=== PATIENT | male | born 1940 | race Caucasian/White ===

== ENCOUNTER 2018-01-12 12:30 | Emergency (ER) | payer MEDICARE, OTHER ==
[~2018-01-12] VITALS: Ht 170.2 cm; Wt 97.5 kg
[2018-01-12] MEDS ORDERED: diazePAM 5 MG TABLET PO ONE (13:00)
[2018-01-12] MEDS ORDERED: MORPHINE SULFATE 2 MG/ML DISP.SYRIN. IM ONE (13:00)
[2018-01-12] MEDS ORDERED: MORPHINE SULFATE 4 MG/ML DISP.SYRIN. IV ONE (13:15)
--- NOTE | 2018-01-12 13:46 | PHYS DOC ---
Past History Past Medical History: Anemia, Anxiety, Depression, Diabetes, High Cholesterol, Hypertension, Other Past Surgical History: Other Alcohol Use: None Drug Use: None Adult General Chief Complaint Chief Complaint: HIP PAIN HPI HPI Patient is a 77 year old M who presents with right-sided hip pain. Jamshid states that he has chronic hip pain that has worsened significantly this morning. He feels that his pain is worse with movement and improved with rest and positioning. He states that his pain is a cramping like pain and is associated with radiation down the back of his right leg to his heel. He has no other associated symptoms. He has no other exacerbating or alleviating factors. Review of Systems Review of Systems Constitutional: Denies fever or chills [] Eyes: Denies change in visual acuity, redness, or eye pain [] HENT: Denies nasal congestion or sore throat [] Respiratory: Denies cough or shortness of breath [] Cardiovascular: No additional information not addressed in HPI [] GI: Denies abdominal pain, nausea, vomiting, bloody stools or diarrhea [] : Denies dysuria or hematuria [] Musculoskeletal: Negative except history of present illness Integument: Denies rash or skin lesions [] Neurologic: Denies headache, focal weakness or sensory changes [] Endocrine: Denies polyuria or polydipsia [] All other systems were reviewed and found to be within normal limits, except as documented in this note. Family History Family History No pertinent family medical history was reported Current Medications Current Medications Current Medications Medications (Trade) Dose Ordered Sig/Rosendo Start Time Stop Time Status Last Admin Dose Admin Diazepam (Valium) 5 mg 1X ONCE 01/12/18 13:00 01/12/18 13:01 DC 01/12/18 13:10 5 MG Morphine Sulfate (Morphine 2mg Syringe) 2 mg 1X ONCE 01/12/18 13:00 01/12/18 13:01 DC Morphine Sulfate (Morphine 4mg Syringe) 2 mg 1X ONCE 01/12/18 13:15 01/12/18 13:16 DC 01/12/18 13:22 2 MG Allergies Allergies Allergies Coded Allergies Type Severity Reaction Last Updated Verified No Known Drug Allergies 01/12/18 No Physical Exam Physical Exam Constitutional: Well developed, well nourished, no acute distress, non-toxic appearance. [] HENT: Normocephalic, atraumatic, Eyes: EOMI, conjunctiva normal, no discharge. [] Neck: Normal range of motion, no tenderness, supple, no stridor. [] Cardiovascular:Heart rate regular rhythm, no murmur [] Lungs & Thorax: Bilateral breath sounds clear to auscultation [] Abdomen: Bowel sounds normal, soft, no tenderness, no masses, no pulsatile masses. [] Back: No tenderness, no CVA tenderness. [] Extremities: no cyanosis, no clubbing, ROM intact, no edema. [] Pain was reproducible with palpation of the right gluteus and hamstring Neurologic: Alert and oriented X 3, normal motor function, normal sensory function, no focal deficits noted. [] Psychologic: Affect normal, judgement normal, mood normal. [] Current Patient Data Vital Signs Vital Signs Date Time Temp Pulse Resp B/P (MAP) Pulse Ox O2 Delivery O2 Flow Rate FiO2 01/12/18 13:22 20 97 Room Air 01/12/18 13:15 74 137/90 (106) 01/12/18 12:30 97.9 EKG EKG [] Radiology/Procedures Radiology/Procedures [] Course & Med Decision Making Course & Med Decision Making Pertinent Labs and Imaging studies reviewed. (See chart for details) Significant improvement was noted after Valium and morphine were given Dragon Disclaimer Dragon Disclaimer This electronic medical record was generated, in whole or in part, using a voice recognition dictation system. Departure Departure: Impression: Primary Impression: Muscle spasm of right leg Disposition: HOME, SELF-CARE Condition: STABLE Referrals: RONALD JOSÉ MD (PCP) Patient Instructions: Back Pain, Adult Additional Instructions: Jamshid was seen in the emergency department for hip pain. No emergency medical condition was found on history or physical exam. His symptoms did improve. He was discharged in stable condition. He is encouraged follow-up with his primary care doctor as needed for further management. NADEEN CADET MD Jan 12, 2018 13:46
[2018-01-12 13:58] VITALS: BP 122/76
== END 2018-01-12 14:05 | disposition home or self-care (01) ==
LOC: ER 12:30
DX: G89.29 Other chronic pain (principal); M62.831 Muscle spasm of calf; F41.9 Anxiety disorder, unspecified; F32.9 Major depressive disorder, single episode, unspecified; E11.9 Type 2 diabetes mellitus without complications; E78.00 Pure hypercholesterolemia, unspecified; I10 Essential (primary) hypertension; Z86.2 Personal history of diseases of the blood and blood-forming organs and certain disorders involving the immune mechanism
CPT/HCPCS: 96374; 99284; J2270

== ENCOUNTER 2018-02-11 13:42 | Inpatient (IN) | payer MEDICARE, OTHER ==
[~2018-02-11] VITALS: Ht 180.3 cm; Wt 97.3 kg
[2018-02-11 14:32] LABS: BASO % 1 % (0-3); EOS # 0.2 x10^3/uL (0.0-0.7); EOS % 5 % (0-3); LYMPH # 1.5 x10^3/uL (1.0-4.8); LYMPH % 34 % (24-48); MEAN CORPUSCULAR HEMOGLOBIN 29 pg (25-35); MEAN CORPUSCULAR HGB CONC 33 g/dL (31-37); MEAN CORPUSCULAR VOLUME 88 fL (79-100); MONO # 0.5 x10^3/uL (0.0-1.1); MONO % 12 % (0-9); NEUT # 2.2 x10^3uL (1.8-7.7); NEUT % 48 % (31-73); PLATELET COUNT 182 x10^3/uL (140-400); RED BLOOD COUNT 4.43 x10^6/uL (4.30-5.70); RED CELL DISTRIBUTION WIDTH 12.6 % (11.5-14.5); WHITE BLOOD COUNT 4.5 x10^3/uL (4.0-11.0)
[2018-02-11 14:41] LABS: ALBUMIN 3.9 g/dL (3.4-5.0); ALBUMIN/GLOBULIN RATIO 1.1 (1.0-1.7); CALCIUM 9.2 mg/dL (8.5-10.1); CREATININE 1.1 mg/dL (0.7-1.3); GFR 64.9; MAGNESIUM 1.8 mg/dL (1.8-2.4); TOTAL BILIRUBIN 0.2 mg/dL (0.2-1.0); TOTAL PROTEIN 7.3 g/dL (6.4-8.2)
--- NOTE | 2018-02-11 14:42 | EKG ---
[address] [address] Test Date: 2018-02-11 Test Time: 13:39:32 Pat Name: ELO SCHROEDER Department: Room: Gender: M [employer] Operator: : 1940 Requested By: ANT VINES Order Number: [id number] Reading MD: Measurements Intervals [place] Rate: 79 P: 39 DE: 184 QRS: -39 QRSD: 86 T: 65 QT: 352 QTc: 405 Interpretive Statements SINUS RHYTHM ABNORMAL LEFT AXIS DEVIATION LEFT ANTERIOR FASCICULAR BLOCK ABNORMAL ECG RI6.01 No previous ECG available for comparison
--- NOTE | 2018-02-11 15:52 | PHYS DOC ---
Past History Past Medical History: Anemia, Anxiety, Depression, Diabetes, High Cholesterol, Hypertension, Other Past Surgical History: Other Alcohol Use: None Drug Use: None Adult General Chief Complaint Chief Complaint: PSYCH EVALUATION HPI HPI 77-year-old male presents for medical clearance for [facility] admission. Patient denies any pain or medical concerns. He denies fever, chills , shortness of breath, chest pain. He is calm and cooperative. Review of Systems Review of Systems Constitutional: Denies fever or chills [] Eyes: Denies change in visual acuity, redness, or eye pain [] HENT: Denies nasal congestion or sore throat [] Respiratory: Denies cough or shortness of breath [] Cardiovascular: No additional information not addressed in HPI [] GI: Denies abdominal pain, nausea, vomiting, bloody stools or diarrhea [] : Denies dysuria or hematuria [] Musculoskeletal: Denies back pain or joint pain [] Integument: Denies rash or skin lesions [] Neurologic: Denies headache, focal weakness or sensory changes [] Endocrine: Denies polyuria or polydipsia [] All other systems were reviewed and found to be within normal limits, except as documented in this note. Allergies Allergies Allergies Coded Allergies Type Severity Reaction Last Updated Verified No Known Drug Allergies 01/12/18 No Physical Exam Physical Exam Constitutional: Well developed, well nourished, no acute distress, non-toxic appearance. [] HENT: Normocephalic, atraumatic, bilateral external ears normal, oropharynx moist, no oral exudates, nose normal. [] Eyes: PERRLA, EOMI, conjunctiva normal, no discharge. [] Neck: Normal range of motion, no tenderness, supple, no stridor. [] Cardiovascular:Heart rate regular rhythm, no murmur [] Lungs & Thorax: Bilateral breath sounds clear to auscultation [] Abdomen: Bowel sounds normal, soft, no tenderness, no masses, no pulsatile masses. [] Skin: Warm, dry, no erythema, no rash. [] Back: No tenderness, no CVA tenderness. [] Extremities: No tenderness, no cyanosis, no clubbing, ROM intact, no edema. [] Neurologic: Alert and oriented X 3, normal motor function, normal sensory function, no focal deficits noted. [] Psychologic: Affect normal, judgement normal, mood normal. [] Current Patient Data Lab Results Laboratory Tests Test 02/11/18 13:55 White Blood Count 4.5 x10^3/uL (4.0-11.0) Red Blood Count 4.43 x10^6/uL (4.30-5.70) Hemoglobin 13.0 g/dL (13.0-17.5) Hematocrit 39.0 % (39.0-53.0) Mean Corpuscular Volume 88 fL (79-100) Mean Corpuscular Hemoglobin 29 pg (25-35) Mean Corpuscular Hemoglobin Concent 33 g/dL (31-37) Red Cell Distribution Width 12.6 % (11.5-14.5) Platelet Count 182 x10^3/uL (140-400) Neutrophils (%) (Auto) 48 % (31-73) Lymphocytes (%) (Auto) 34 % (24-48) Monocytes (%) (Auto) 12 % (0-9) H Eosinophils (%) (Auto) 5 % (0-3) H Basophils (%) (Auto) 1 % (0-3) Neutrophils # (Auto) 2.2 x10^3uL (1.8-7.7) Lymphocytes # (Auto) 1.5 x10^3/uL (1.0-4.8) Monocytes # (Auto) 0.5 x10^3/uL (0.0-1.1) Eosinophils # (Auto) 0.2 x10^3/uL (0.0-0.7) Basophils # (Auto) 0.0 x10^3/uL (0.0-0.2) Sodium Level 139 mmol/L (136-145) Potassium Level 4.0 mmol/L (3.5-5.1) Chloride Level 102 mmol/L (98-107) Carbon Dioxide Level 26 mmol/L (21-32) Anion Gap 11 (6-14) Blood Urea Nitrogen 8 mg/dL (8-26) Creatinine 1.1 mg/dL (0.7-1.3) Estimated GFR (Cockcroft-Gault) 64.9 BUN/Creatinine Ratio 7 (6-20) Glucose Level 187 mg/dL (70-99) H Calcium Level 9.2 mg/dL (8.5-10.1) Magnesium Level 1.8 mg/dL (1.8-2.4) Total Bilirubin 0.2 mg/dL (0.2-1.0) Aspartate Amino Transferase (AST) 12 U/L (15-37) L Alanine Aminotransferase (ALT) 21 U/L (16-63) Alkaline Phosphatase 54 U/L (46-116) Total Protein 7.3 g/dL (6.4-8.2) Albumin 3.9 g/dL (3.4-5.0) Albumin/Globulin Ratio 1.1 (1.0-1.7) EKG EKG Normal sinus rhythm, rate 79, leftward axis, no ST elevation or depression. Somewhat flattened T waves[] Radiology/Procedures Radiology/Procedures [] Course & Med Decision Making Course & Med Decision Making Pertinent Labs and Imaging studies reviewed. (See chart for details) The patient's workup was unremarkable. He is medically stable for admission. [] Dragon Disclaimer Dragon Disclaimer This electronic medical record was generated, in whole or in part, using a voice recognition dictation system. Departure Departure: Referrals: RONALD JOSÉ MD (PCP) ANT VINES DO February 11, 2018 15:52
[2018-02-11 15:53] LABS: BILIRUBIN,URINE NEG (NEG); CLARITY,URINE CLEAR; COLOR,URINE YELLOW; GLUCOSE,URINE 250 mg/dL (NEG); NITRITE,URINE NEG (NEG); UROBILINOGEN,URINE 0.2 mg/dL (0.2 mg/dL)
[2018-02-11 15:54] LABS: BACTERIA,URINE 0 /HPF (0-FEW); HYALINE CASTS, URINE FEW /HPF; SQUAMOUS EPITHELIAL CELL,UR OCC /LPF
[2018-02-11 17:00] VITALS: BP 138/69
[2018-02-11] MEDS ORDERED: PECT2.8L3 MM (17:10)
[2018-02-11] MEDS ORDERED: POLY119P4 PO (17:10)
[2018-02-11] MEDS ORDERED: ONDA4TAB10 PO (17:10)
[2018-02-11] MEDS ORDERED: DEXT38GE2 PO (17:10)
[2018-02-11] MEDS ORDERED: DONE10TA61 PO (17:10)
[2018-02-11] MEDS ORDERED: DOCU-109 PO (17:10)
[2018-02-11] MEDS ORDERED: NALO25TA PO (17:10)
[2018-02-11] MEDS ORDERED: ASPI-630 PO (17:10)
[2018-02-11] MEDS ORDERED: INSU100C4 SQ ×2 (17:10)
[2018-02-11] MEDS ORDERED: DICL100G18 TP (17:10)
[2018-02-11] MEDS ORDERED: GLUC1KIT IM (17:10)
[2018-02-11] MEDS ORDERED: HYDR-2758 PO (17:10)
[2018-02-11] MEDS ORDERED: FERR325T72 PO (17:10)
[2018-02-11] MEDS ORDERED: PROP225C2 PO (17:10)
[2018-02-11] MEDS ORDERED: MAGN2400 PO (17:10)
[2018-02-11] MEDS ORDERED: QUET25TA5 PO (17:10)
[2018-02-11] MEDS ORDERED: BUSP5TAB PO (17:10)
[2018-02-11] MEDS ORDERED: INSU100I13 SQ (17:10)
[2018-02-11] MEDS ORDERED: TRAZ50TA15 PO (17:10)
[2018-02-11] MEDS ORDERED: LOPE2CAP88 PO (17:10)
[2018-02-11] MEDS ORDERED: MULT-460 PO (17:10)
[2018-02-11] MEDS ORDERED: GLYC15DR2 OP (17:10)
[2018-02-11] MEDS ORDERED: LORA0.5T96 PO (17:10)
[2018-02-11] MEDS ORDERED: FLUT9.9S NS (17:10)
[2018-02-11] MEDS ORDERED: LORA0.5T PO (17:10)
[2018-02-11] MEDS ORDERED: DULO30CA2 PO (17:10)
[2018-02-11] MEDS ORDERED: PRAV10TA2 PO (17:10)
[2018-02-11] MEDS ORDERED: LORA10TA3 PO (17:10)
[2018-02-11] MEDS ORDERED: NORT25CA PO (17:10)
[2018-02-11] MEDS ORDERED: POTA10TA10 PO (17:10)
[2018-02-11] MEDS ORDERED: METF10003 PO (17:10)
[2018-02-11] MEDS ORDERED: CYAN10005 PO (17:10)
[2018-02-11] MEDS ORDERED: [UNRECOGNIZED DRUG - CODE] OP (17:10)
[2018-02-11] MEDS ORDERED: ACETASOL AU (17:10)
[2018-02-11] MEDS ORDERED: PREG50CA PO (17:10)
[2018-02-11] MEDS ORDERED: SENN-79 PO (17:10)
[2018-02-11] MEDS ORDERED: MAG HYDROX/AL HYDROX/SIMETH 30 ML ORAL.SUSP PO PRN (17:30)
[2018-02-11] MEDS ORDERED: MAGNESIUM HYDROXIDE 2,400 MG/30 ML ORAL.SUSP. PO PRN ×2 (17:30→18:00)
[2018-02-11] MEDS ORDERED: ACETAMINOPHEN 325 MG TABLET PO PRN (17:30)
[2018-02-11] MEDS ORDERED: METHYL SALICYLATE/MENTHOL TOPICAL OINTMENT 29GM TUBE. TP PRN (17:30)
[2018-02-11] MEDS ORDERED: NON FORMULARY ITEM (Glucagon,Human Recombinant (Glucagon Emergency Kit) 1 MG) IM SCH (17:45)
[2018-02-11] MEDS ORDERED: [UNRECOGNIZED DRUG - OTHER] MM PRN (17:45)
[2018-02-11] MEDS ORDERED: LOPERAMIDE 2 MG CAPSULE PO PRN (18:00)
[2018-02-11] MEDS ORDERED: DEXTROSE 50% 25 GM / 50ML DISP.SYRIN. IV PRN (18:00)
[2018-02-11] MEDS ORDERED: LORazepam 0.5 MG TABLET PO PRN (18:00)
[2018-02-11] MEDS ORDERED: DEXTROSE ORAL GEL 15 GM TUBE. PO PRN (18:00)
[2018-02-11] MEDS: INSULIN LISPRO 300 UNITS/3 ML INSULN.PEN. SQ SCH ×2 (18:00→21:42)
[2018-02-11] MEDS ORDERED: POLYVINYL ALCOHOL 1.4% OPHTH SOLUTION 15ML BOTTLE. OU PRN (18:15)
--- NOTE | 2018-02-11 20:01 | PDOC ---
Exam Note: Maxx Note: Please also refer to the separate dictated note~for this date of service dictated separately.~Patient seen individually. Discussed the patient with Nursing staff reviewed the chart.~Reviewed interim history and current functioning. Reviewed vital signs,~Labs/ Radiology~and current medications noted below. Continue current treatment with the changes noted in the dictated addendum note Assessment: Vital Signs: Vital Signs Date Time Temp Pulse Resp B/P (MAP) Pulse Ox O2 Delivery O2 Flow Rate FiO2 02/11/18 17:00 98.0 69 20 138/69 (92) 97 Room Air Labs: Laboratory Tests Test 02/11/18 13:55 02/11/18 15:10 02/11/18 17:12 White Blood Count 4.5 x10^3/uL (4.0-11.0) Red Blood Count 4.43 x10^6/uL (4.30-5.70) Hemoglobin 13.0 g/dL (13.0-17.5) Hematocrit 39.0 % (39.0-53.0) Mean Corpuscular Volume 88 fL (79-100) Mean Corpuscular Hemoglobin 29 pg (25-35) Mean Corpuscular Hemoglobin Concent 33 g/dL (31-37) Red Cell Distribution Width 12.6 % (11.5-14.5) Platelet Count 182 x10^3/uL (140-400) Neutrophils (%) (Auto) 48 % (31-73) Lymphocytes (%) (Auto) 34 % (24-48) Monocytes (%) (Auto) 12 % (0-9) H Eosinophils (%) (Auto) 5 % (0-3) H Basophils (%) (Auto) 1 % (0-3) Neutrophils # (Auto) 2.2 x10^3uL (1.8-7.7) Lymphocytes # (Auto) 1.5 x10^3/uL (1.0-4.8) Monocytes # (Auto) 0.5 x10^3/uL (0.0-1.1) Eosinophils # (Auto) 0.2 x10^3/uL (0.0-0.7) Basophils # (Auto) 0.0 x10^3/uL (0.0-0.2) Sodium Level 139 mmol/L (136-145) Potassium Level 4.0 mmol/L (3.5-5.1) Chloride Level 102 mmol/L (98-107) Carbon Dioxide Level 26 mmol/L (21-32) Anion Gap 11 (6-14) Blood Urea Nitrogen 8 mg/dL (8-26) Creatinine 1.1 mg/dL (0.7-1.3) Estimated GFR (Cockcroft-Gault) 64.9 BUN/Creatinine Ratio 7 (6-20) Glucose Level 187 mg/dL (70-99) H Calcium Level 9.2 mg/dL (8.5-10.1) Magnesium Level 1.8 mg/dL (1.8-2.4) Total Bilirubin 0.2 mg/dL (0.2-1.0) Aspartate Amino Transferase (AST) 12 U/L (15-37) L Alanine Aminotransferase (ALT) 21 U/L (16-63) Alkaline Phosphatase 54 U/L (46-116) Total Protein 7.3 g/dL (6.4-8.2) Albumin 3.9 g/dL (3.4-5.0) Albumin/Globulin Ratio 1.1 (1.0-1.7) Urine Collection Type Unknown Urine Color Yellow Urine Clarity Clear Urine pH 5.5 Urine Specific [place] 1.020 Urine Protein Neg (NEG-TRACE) Urine Glucose (UA) 250 mg/dL (NEG) Urine Ketones (Stick) Trace mg/dL (NEG) Urine Blood Small (NEG) Urine Nitrite Neg (NEG) Urine Bilirubin Neg (NEG) Urine Urobilinogen Dipstick 0.2 mg/dL (0.2 mg/dL) Urine Leukocyte Esterase Neg (NEG) Urine RBC 1-2 /HPF (0-2) Urine WBC 1-4 /HPF (0-4) Urine Squamous Epithelial Cells Occ /LPF Urine Bacteria 0 /HPF (0-FEW) Urine Hyaline Casts Few /HPF Urine Mucus Mod /LPF Glucose (Fingerstick) 139 mg/dL (70-99) H Current Medications: Meds: Current Medications Acetaminophen (Tylenol) 650 mg PRN Q6HRS PRN PO PAIN / TEMP; Start 02/11/18 at 17:30 Multi-Ingredient Ointment (Analgesic [place]) 1 jonathan PRN QID PRN TP MUSCLE PAIN; Start 02/11/18 at 17:30 Al Hydroxide/Mg Hydroxide (Mylanta Plus Xs) 15 ml PRN AFTMEALHC PRN PO DYSPEPSIA; Start 02/11/18 at 17:30 Magnesium Hydroxide (Milk Of Magnesia) 2,400 mg PRN QHS PRN PO CONSTIPATION; Start 02/11/18 at 17:30 Cyanocobalamin (Vitamin B-12) 1,000 mcg DAILY PO ; Start 02/12/18 at 09:00 Diclofenac Sodium (Voltaren) 1 jonathan QIDPRN PRN TP PAIN; Start 02/11/18 at 17:45 Ferrous Sulfate (Feosol) 325 mg TIDWMEALS PO ; Start 02/12/18 at 08:00 Insulin Glargine (Lantus) 15 units QHS SQ ; Start 02/11/18 at 21:00 Naloxegol (Movantik) 25 mg DAILY PO ; Start 02/12/18 at 09:00 Nortriptyline HCl (Pamelor) 50 mg HS PO ; Start 02/11/18 at 21:00 Polyethylene Glycol (miraLAX) 17 gm HS PO ; Start 02/11/18 at 21:00 Pregabalin (Lyrica) 50 mg BID PO ; Start 02/11/18 at 21:00 Aspirin (Aspirin Enteric Coated) 81 mg DAILYWBKFT PO ; Start 02/12/18 at 08:00 Buspirone HCl (Buspar) 5 mg BID PO ; Start 02/11/18 at 21:00 Artificial Tears (Artificial Tears) 1 drop QID OU ; Start 02/11/18 at 21:00 Glucose (Insta-Glucose) 15 gm PRN Q15MIN PRN PO LOW BLOOD SUGAR; Start at 18:00 Docusate Sodium (Colace) 100 mg BID PO ; Start 02/11/18 at 21:00 Donepezil HCl (Aricept) 10 mg QHS PO ; Start 02/11/18 at 21:00 Duloxetine HCl (Cymbalta) 90 mg DAILY PO ; Start 02/12/18 at 09:00 Fluticasone Propionate (Flonase) 2 spray DAILY NS ; Start 02/12/18 at 09:00 Non-Formulary Medication (Glucagon,Human Recombinant (Glucagon Emergency Kit)) 1 mg PRN IM ; Start 02/11/18 at 17:45; Status UNV Artificial Tears (Artificial Tears) 1 drop PRN Q6HRS PRN OU DRY EYE; Start at 18:15 Acetaminophen/ Hydrocodone Bitart (Lortab 5/325) 1 tab PRN Q6HRS PRN PO PAIN; Start 02/11/18 at 18:00 Insulin Human Lispro (HumaLOG) 5 units TIDWMEALS SQ ; Start 02/11/18 at 18:00 Loperamide HCl (Imodium) 2 mg PRN Q15MIN PRN PO DIARRHEA; Start 02/11/18 at 18: 00 Cetirizine HCl (ZyrTEC) 10 mg DAILY PO ; Start 02/12/18 at 09:00 Lorazepam (Ativan) 0.5 mg PRN Q6HRS PRN PO ANXIETY / AGITATION; Start 02/11/18 at 18:00 Lorazepam (Ativan) 0.5 mg QHS PO ; Start 02/11/18 at 21:00 Magnesium Hydroxide (Milk Of Magnesia) 2,400 mg PRN QHS PRN PO CONSTIPATION; Start 02/11/18 at 18:00 Metformin HCl (Glucophage) 1,000 mg BIDWMEALS PO ; Start 02/12/18 at 08:00 Multivitamins/ Calcium (Thera-M Plus) 1 tab DAILY PO ; Start 02/12/18 at 09:00 Non-Formulary Medication (Pectin (Throat Drops)) 1 lozenge PRN Q4HRS PRN MM sore throat; Start 02/11/18 at 17:45; Status UNV Potassium Chloride (Klor-Con) 10 meq DAILYWBKFT PO ; Start 02/12/18 at 08:00 Atorvastatin Calcium (Lipitor) 5 mg QHS PO ; Start 02/11/18 at 21:00 Propafenone HCl (Rythmol) 75 mg BID PO ; Start 02/11/18 at 21:00 Quetiapine Fumarate (SEROquel) 75 mg BID PO ; Start 02/11/18 at 21:00 Sennosides (Senna) 17.2 mg DAILY PO ; Start 02/12/18 at 09:00 Trazodone HCl (Desyrel) 50 mg QHS PO ; Start 02/11/18 at 21:00 Insulin Human Lispro (HumaLOG) 0-9 UNITS TIDWMEALS SQ ; Start 02/12/18 at 08:00 Dextrose 12.5 gm PRN Q15MIN PRN IV SEE COMMENTS; Start 02/11/18 at 18:00 Active Scripts Active Reported Zofran Odt (Ondansetron) 4 Mg Tab.rapdis 4 Mg PO PRN Q4HRS PRN 30 Days Voltaren (Diclofenac Sodium) 100 Gm Gel..gram. 1 Gm TP QIDPRN PRN Vitamin B-12 (Cyanocobalamin (Vitamin B-12)) 1,000 Mcg Tablet 1,000 Mcg PO DAILY Trazodone Hcl 50 Mg Tablet 50 Mg PO HS Throat Drops (Pectin) 2.8 Mg Lozenge 1 Lozenge MM PRN Q4HRS PRN Seroquel (Quetiapine Fumarate) 25 Mg Tablet 75 Mg PO BID Senna (Sennosides) 8.6 Mg Tablet 17.2 Mg PO DAILY Rythmol Sr (Propafenone Hcl) 225 Mg Cap.er.12h 75 Mg PO BID Pravastatin Sodium 10 Mg Tablet 10 Mg PO HS Potassium Chloride 10 Meq Tablet.er 10 Meq PO DAILY Novolog (Insulin Aspart) 100 Unit/1 Ml Cartridge 5 Unit SQ TIDWMEALS Novolog (Insulin Aspart) 100 Unit/1 Ml Cartridge 1-20 Unit SQ QIDACHS Nortriptyline Hcl 25 Mg Capsule 50 Mg PO HS Natural Balance Tears Eye Drop (Dextran 70/Hypromellose) 15 Ml Drops 1 Ml OP [id number] Multiple Vitamin (Multivitamin With Minerals) 1 Each Tablet 1 Each PO DAILY Movantik (Naloxegol Oxalate) 25 Mg Tablet 25 Mg PO DAILY Miralax (Polyethylene Glycol 3350) 119 Gm Powder 17 Gm PO HS Milk Of Magnesia (Magnesium Hydroxide) 2,400 Mg/10 Ml Oral.susp 2,400 Mg PO PRN QHS PRN Metformin Hcl 1,000 Mg Tablet 1,000 Mg PO BID Lyrica (Pregabalin) 50 Mg Capsule 50 Mg PO BID Lubricant Eye Drops (Glycerin/Propylene Glycol) 15 Ml Drops 1 Ml OP PRN Q6HRS PRN Lorazepam 0.5 Mg Tablet 0.5 Mg PO PRN Q6HRS PRN Loratadine 10 Mg Tablet 10 Mg PO DAILY Lantus Solostar (Insulin Glargine,Hum.rec.anlog) 100 Unit/1 Ml Insuln.pen 15 Unit SQ QHS Imodium A-D (Loperamide HCl) 2 Mg Capsule 2 Mg PO PRN Q15MIN PRN Hydrocodone-Apap 5-325 (Hydrocodone Bit/Acetaminophen) 1 Each Tablet 1 Tab PO QID PRN Glucose Gel (Dextrose) 38 Gm Gel..gram. 1 Packet PO PRN PRN Glucagon Emergency Kit (Glucagon,Human Recombinant) 1 Mg Kit 1 Mg IM PRN Flonase Allergy Relief (Fluticasone Propionate) 9.9 Ml [place].susp 2 Sprays NS DAILY Feosol (Ferrous Sulfate) 325 Mg Tablet 325 Mg PO PRN TID PRN Cymbalta (Duloxetine Hcl) 30 Mg Capsule.dr 90 Mg PO DAILY Colace (Docusate Sodium) 100 Mg Capsule 100 Mg PO BID Buspirone Hcl 5 Mg Tablet 5 Mg PO BID Ativan (Lorazepam) 0.5 Mg Tablet 0.5 Mg PO HS Aspirin 81 Mg Tab.chew 81 Mg PO DAILY Aricept (Donepezil Hcl) 10 Mg Tablet 10 Mg PO HS [acetasol 2-1%] 3 Drop AU I have reviewed the current psychotropics carefully including drug interactions. Risk benefit ratio favors no change other than as noted in my dictated progress note. Diagnosis: Problems: (1) Anxiety disorder (2) Mild cognitive impairment (3) Impulse control disorder (4) Major depressive disorder ANDRES WILLIAMSON MD February 11, 2018 20:01
[2018-02-11] MEDS ORDERED: MEMA10TA PO (20:06)
--- NOTE | 2018-02-11 20:47 | PDOC ---
Exam Note: Maxx Note: Please also refer to the separate dictated note~for this date of service dictated separately.~Patient seen individually. Discussed the patient with Nursing staff reviewed the chart.~Reviewed interim history and current functioning. Reviewed vital signs,~Labs/ Radiology~and current medications noted below. Continue current treatment with the changes noted in the dictated addendum note Assessment: Vital Signs: Vital Signs Date Time Temp Pulse Resp B/P (MAP) Pulse Ox O2 Delivery O2 Flow Rate FiO2 02/11/18 17:00 98.0 69 20 138/69 (92) 97 Room Air Labs: Laboratory Tests Test 02/11/18 13:55 02/11/18 15:10 02/11/18 17:12 02/11/18 20:26 White Blood Count 4.5 x10^3/uL (4.0-11.0) Red Blood Count 4.43 x10^6/uL (4.30-5.70) Hemoglobin 13.0 g/dL (13.0-17.5) Hematocrit 39.0 % (39.0-53.0) Mean Corpuscular Volume 88 fL (79-100) Mean Corpuscular Hemoglobin 29 pg (25-35) Mean Corpuscular Hemoglobin Concent 33 g/dL (31-37) Red Cell Distribution Width 12.6 % (11.5-14.5) Platelet Count 182 x10^3/uL (140-400) Neutrophils (%) (Auto) 48 % (31-73) Lymphocytes (%) (Auto) 34 % (24-48) Monocytes (%) (Auto) 12 % (0-9) H Eosinophils (%) (Auto) 5 % (0-3) H Basophils (%) (Auto) 1 % (0-3) Neutrophils # (Auto) 2.2 x10^3uL (1.8-7.7) Lymphocytes # (Auto) 1.5 x10^3/uL (1.0-4.8) Monocytes # (Auto) 0.5 x10^3/uL (0.0-1.1) Eosinophils # (Auto) 0.2 x10^3/uL (0.0-0.7) Basophils # (Auto) 0.0 x10^3/uL (0.0-0.2) Sodium Level 139 mmol/L (136-145) Potassium Level 4.0 mmol/L (3.5-5.1) Chloride Level 102 mmol/L (98-107) Carbon Dioxide Level 26 mmol/L (21-32) Anion Gap 11 (6-14) Blood Urea Nitrogen 8 mg/dL (8-26) Creatinine 1.1 mg/dL (0.7-1.3) Estimated GFR (Cockcroft-Gault) 64.9 BUN/Creatinine Ratio 7 (6-20) Glucose Level 187 mg/dL (70-99) H Calcium Level 9.2 mg/dL (8.5-10.1) Magnesium Level 1.8 mg/dL (1.8-2.4) Total Bilirubin 0.2 mg/dL (0.2-1.0) Aspartate Amino Transferase (AST) 12 U/L (15-37) L Alanine Aminotransferase (ALT) 21 U/L (16-63) Alkaline Phosphatase 54 U/L (46-116) Total Protein 7.3 g/dL (6.4-8.2) Albumin 3.9 g/dL (3.4-5.0) Albumin/Globulin Ratio 1.1 (1.0-1.7) Urine Collection Type Unknown Urine Color Yellow Urine Clarity Clear Urine pH 5.5 Urine Specific [place] 1.020 Urine Protein Neg (NEG-TRACE) Urine Glucose (UA) 250 mg/dL (NEG) Urine Ketones (Stick) Trace mg/dL (NEG) Urine Blood Small (NEG) Urine Nitrite Neg (NEG) Urine Bilirubin Neg (NEG) Urine Urobilinogen Dipstick 0.2 mg/dL (0.2 mg/dL) Urine Leukocyte Esterase Neg (NEG) Urine RBC 1-2 /HPF (0-2) Urine WBC 1-4 /HPF (0-4) Urine Squamous Epithelial Cells Occ /LPF Urine Bacteria 0 /HPF (0-FEW) Urine Hyaline Casts Few /HPF Urine Mucus Mod /LPF Glucose (Fingerstick) 139 mg/dL (70-99) H 267 mg/dL (70-99) H Current Medications: Meds: Current Medications Acetaminophen (Tylenol) 650 mg PRN Q6HRS PRN PO PAIN / TEMP; Start 02/11/18 at 17:30 Multi-Ingredient Ointment (Analgesic [place]) 1 jonathan PRN QID PRN TP MUSCLE PAIN; Start 02/11/18 at 17:30 Al Hydroxide/Mg Hydroxide (Mylanta Plus Xs) 15 ml PRN AFTMEALHC PRN PO DYSPEPSIA; Start 02/11/18 at 17:30 Magnesium Hydroxide (Milk Of Magnesia) 2,400 mg PRN QHS PRN PO CONSTIPATION; Start 02/11/18 at 17:30 Cyanocobalamin (Vitamin B-12) 1,000 mcg DAILY PO ; Start 02/12/18 at 09:00 Diclofenac Sodium (Voltaren) 1 jonathan QIDPRN PRN TP PAIN; Start 02/11/18 at 17:45 Ferrous Sulfate (Feosol) 325 mg TIDWMEALS PO ; Start 02/12/18 at 08:00 Insulin Glargine (Lantus) 15 units QHS SQ ; Start 02/11/18 at 21:00 Naloxegol (Movantik) 25 mg DAILY PO ; Start 02/12/18 at 09:00 Nortriptyline HCl (Pamelor) 50 mg HS PO ; Start 02/11/18 at 21:00 Polyethylene Glycol (miraLAX) 17 gm HS PO ; Start 02/11/18 at 21:00 Pregabalin (Lyrica) 50 mg BID PO ; Start 02/11/18 at 21:00 Aspirin (Aspirin Enteric Coated) 81 mg DAILYWBKFT PO ; Start 02/12/18 at 08:00 Buspirone HCl (Buspar) 5 mg BID PO ; Start 02/11/18 at 21:00 Artificial Tears (Artificial Tears) 1 drop QID OU ; Start 02/11/18 at 21:00 Glucose (Insta-Glucose) 15 gm PRN Q15MIN PRN PO LOW BLOOD SUGAR; Start at 18:00 Docusate Sodium (Colace) 100 mg BID PO ; Start 02/11/18 at 21:00 Donepezil HCl (Aricept) 10 mg QHS PO ; Start 02/11/18 at 21:00 Duloxetine HCl (Cymbalta) 90 mg DAILY PO ; Start 02/12/18 at 09:00 Fluticasone Propionate (Flonase) 2 spray DAILY NS ; Start 02/12/18 at 09:00 Non-Formulary Medication (Glucagon,Human Recombinant (Glucagon Emergency Kit)) 1 mg PRN IM ; Start 02/11/18 at 17:45; Status UNV Artificial Tears (Artificial Tears) 1 drop PRN Q6HRS PRN OU DRY EYE; Start at 18:15 Acetaminophen/ Hydrocodone Bitart (Lortab 5/325) 1 tab PRN Q6HRS PRN PO PAIN; Start 02/11/18 at 18:00 Insulin Human Lispro (HumaLOG) 5 units TIDWMEALS SQ ; Start 02/11/18 at 18:00 Loperamide HCl (Imodium) 2 mg PRN Q15MIN PRN PO DIARRHEA; Start 02/11/18 at 18: 00 Cetirizine HCl (ZyrTEC) 10 mg DAILY PO ; Start 02/12/18 at 09:00 Lorazepam (Ativan) 0.5 mg PRN Q6HRS PRN PO ANXIETY / AGITATION; Start 02/11/18 at 18:00 Lorazepam (Ativan) 0.5 mg QHS PO ; Start 02/11/18 at 21:00 Magnesium Hydroxide (Milk Of Magnesia) 2,400 mg PRN QHS PRN PO CONSTIPATION; Start 02/11/18 at 18:00 Metformin HCl (Glucophage) 1,000 mg BIDWMEALS PO ; Start 02/12/18 at 08:00 Multivitamins/ Calcium (Thera-M Plus) 1 tab DAILY PO ; Start 02/12/18 at 09:00 Non-Formulary Medication (Pectin (Throat Drops)) 1 lozenge PRN Q4HRS PRN MM sore throat; Start 02/11/18 at 17:45; Status UNV Potassium Chloride (Klor-Con) 10 meq DAILYWBKFT PO ; Start 02/12/18 at 08:00 Atorvastatin Calcium (Lipitor) 5 mg QHS PO ; Start 02/11/18 at 21:00 Propafenone HCl (Rythmol) 75 mg BID PO ; Start 02/11/18 at 21:00 Quetiapine Fumarate (SEROquel) 75 mg BID PO ; Start 02/11/18 at 21:00 Sennosides (Senna) 17.2 mg DAILY PO ; Start 02/12/18 at 09:00 Trazodone HCl (Desyrel) 50 mg QHS PO ; Start 02/11/18 at 21:00 Insulin Human Lispro (HumaLOG) 0-9 UNITS QIDACHS SQ ; Start 02/12/18 at 07:30 Dextrose 12.5 gm PRN Q15MIN PRN IV SEE COMMENTS; Start 02/11/18 at 18:00 Non-Formulary Medication (Insulin Aspart (Novolog)) 200-249=5u, 250-299=7u, 300- 349=10u,... QIDACHS SQ ; Start 02/11/18 at 21:00; Status UNV Memantine (Namenda) 10 mg DAILY PO ; Start 02/12/18 at 09:00 Active Scripts Active Reported Namenda (Memantine Hcl) 10 Mg Tablet 10 Mg PO DAILY Zofran Odt (Ondansetron) 4 Mg Tab.rapdis 4 Mg PO PRN Q4HRS PRN 30 Days Voltaren (Diclofenac Sodium) 100 Gm Gel..gram. 1 Gm TP QIDPRN PRN Vitamin B-12 (Cyanocobalamin (Vitamin B-12)) 1,000 Mcg Tablet 1,000 Mcg PO DAILY Trazodone Hcl 50 Mg Tablet 50 Mg PO HS Throat Drops (Pectin) 2.8 Mg Lozenge 1 Lozenge MM PRN Q4HRS PRN Seroquel (Quetiapine Fumarate) 25 Mg Tablet 75 Mg PO BID Senna (Sennosides) 8.6 Mg Tablet 17.2 Mg PO DAILY Rythmol Sr (Propafenone Hcl) 225 Mg Cap.er.12h 75 Mg PO BID Pravastatin Sodium 10 Mg Tablet 10 Mg PO HS Potassium Chloride 10 Meq Tablet.er 10 Meq PO DAILY Novolog (Insulin Aspart) 100 Unit/1 Ml Cartridge 5 Unit SQ TIDWMEALS Novolog (Insulin Aspart) 100 Unit/1 Ml Cartridge 1-20 Unit SQ QIDACHS Nortriptyline Hcl 25 Mg Capsule 50 Mg PO HS Natural Balance Tears Eye Drop (Dextran 70/Hypromellose) 15 Ml Drops 1 Ml OP [id number] Multiple Vitamin (Multivitamin With Minerals) 1 Each Tablet 1 Each PO DAILY Movantik (Naloxegol Oxalate) 25 Mg Tablet 25 Mg PO DAILY Miralax (Polyethylene Glycol 3350) 119 Gm Powder 17 Gm PO HS Milk Of Magnesia (Magnesium Hydroxide) 2,400 Mg/10 Ml Oral.susp 2,400 Mg PO PRN QHS PRN Metformin Hcl 1,000 Mg Tablet 1,000 Mg PO BID Lyrica (Pregabalin) 50 Mg Capsule 50 Mg PO BID Lubricant Eye Drops (Glycerin/Propylene Glycol) 15 Ml Drops 1 Ml OP PRN Q6HRS PRN Lorazepam 0.5 Mg Tablet 0.5 Mg PO PRN Q6HRS PRN Loratadine 10 Mg Tablet 10 Mg PO DAILY Lantus Solostar (Insulin Glargine,Hum.rec.anlog) 100 Unit/1 Ml Insuln.pen 15 Unit SQ QHS Imodium A-D (Loperamide HCl) 2 Mg Capsule 2 Mg PO PRN Q15MIN PRN Hydrocodone-Apap 5-325 (Hydrocodone Bit/Acetaminophen) 1 Each Tablet 1 Tab PO QID PRN Glucose Gel (Dextrose) 38 Gm Gel..gram. 1 Packet PO PRN PRN Glucagon Emergency Kit (Glucagon,Human Recombinant) 1 Mg Kit 1 Mg IM PRN Flonase Allergy Relief (Fluticasone Propionate) 9.9 Ml [place].susp 2 Sprays NS DAILY Feosol (Ferrous Sulfate) 325 Mg Tablet 325 Mg PO PRN TID PRN Cymbalta (Duloxetine Hcl) 30 Mg Capsule.dr 90 Mg PO DAILY Colace (Docusate Sodium) 100 Mg Capsule 100 Mg PO BID Buspirone Hcl 5 Mg Tablet 5 Mg PO BID Ativan (Lorazepam) 0.5 Mg Tablet 0.5 Mg PO HS Aspirin 81 Mg Tab.chew 81 Mg PO DAILY Aricept (Donepezil Hcl) 10 Mg Tablet 10 Mg PO HS [acetasol 2-1%] 3 Drop AU I have reviewed the current psychotropics carefully including drug interactions. Risk benefit ratio favors no change other than as noted in my dictated progress note. Diagnosis: Problems: (1) Major depressive disorder (2) Anxiety disorder (3) Impulse control disorder (4) Mild cognitive impairment ANDRES WILLIAMSON MD February 11, 2018 20:47
[2018-02-11] MEDS: POLYVINYL ALCOHOL 1.4% OPHTH SOLUTION 15ML BOTTLE. OU SCH (21:00)
[2018-02-11] MEDS ORDERED: NON FORMULARY ITEM (Insulin Aspart (Novolog) 0 UNIT) SQ SCH (21:00)
[2018-02-11] MEDS: QUEtiapine 50 MG TABLET. PO SCH (21:36)
[2018-02-11] MEDS: busPIRone 5 MG TABLET. PO SCH (21:37)
[2018-02-11] MEDS: ATORVASTATIN CALCIUM 10 MG TABLET. PO SCH (21:37)
[2018-02-11] MEDS: DONEPEZIL HCL 10 MG TABLET PO SCH (21:37)
[2018-02-11] MEDS: LORazepam 0.5 MG TABLET PO SCH (21:38)
[2018-02-11] MEDS: traZODone 50 MG TABLET. PO SCH (21:38)
[2018-02-11] MEDS: DOCUSATE SODIUM 100 MG CAPSULE PO SCH (21:38)
[2018-02-11] MEDS: NORTRIPTYLINE 25 MG CAPSULE PO SCH (21:38)
[2018-02-11] MEDS: PREGABALIN 50 MG CAPSULE PO SCH (21:38)
[2018-02-11] MEDS: PROPAFENONE 150 MG TABLET. PO SCH (21:39)
[2018-02-11] MEDS: POLYETHYLENE GLYCOL 3350 17 GM PACKET. PO SCH (21:39)
[2018-02-11] MEDS: INSULIN GLARGINE 300 UNITS/3 ML INSULN.PEN. SQ SCH (21:41)
--- NOTE | 2018-02-12 02:13 | HP ---
ADMIT DATE: 02/11/2018 PSYCHIATRIC ADMISSION HISTORY/EVALUATION This note covers the elements not covered in my initial note 02/11/2018. IDENTIFYING DATA: The patient is a 77-year-old male referred to us from [facility] by Dr. Godoy, his primary care physician, on account of increased agitation, kicking at doors, attempting to elope. Reportedly, his behaviors have been escalating. He has been yelling, throwing things, extremely labile, impulsive, disruptive. He has failed outpatient psychiatric interventions resulting in this referral. CHIEF COMPLAINT: "I came here today. My right leg is hurting. They were not taking care of the pain. I was getting angry." HISTORY OF PRESENT ILLNESS: The patient has a history of major depressive disorder, for which he is being treated at the [facility]. More recently, he states he has been getting depressed and anxious, but attributes much of this to the pain. He has had some sleep and appetite changes. Nevertheless, the behaviors had been quite unmanageable at the [facility] with him kicking at the door, attempting to elope, yelling, throwing things with worsening agitation. He was deemed a potential danger to others around him and himself and then referred for inpatient psychiatric stabilization. He has had some short term memory deficits as well, but no clear history of bipolar disorder. PAST PSYCHIATRIC HISTORY: I have seen him and followed him from a psychiatric standpoint at the [facility]. PAST MEDICAL HISTORY: Positive for chronic severe pain, hypertension, diabetes mellitus, cataracts, hyperlipidemia. Accu-Cheks a.c. and at bedtime. ALLERGIES: Negative. CODE STATUS: DNR. DIET: Regular. Ambulates with walker and wheelchair. CURRENT PSYCHOTROPICS: Aricept 10 mg a day, Ativan 0.5 mg at bedtime, BuSpar 5 mg b.i.d., Cymbalta 30 mg at bedtime and 60 mg daily for a total of 90 mg a day, Ativan p.r.n., Namenda 10 mg b.i.d., Seroquel 50 mg b.i.d., trazodone 50 mg at bedtime. FAMILY HISTORY: Noncontributory. SOCIAL HISTORY: No history of alcohol, drug abuse, physical, sexual or elder abuse history is noted. Not known to be a perpetrator. He resides at the [facility] with his significant other female friend. Initially, the friend was helping take care of him, but more recently she has been more compromised to herself. MENTAL STATUS EXAMINATION: The patient was seen in his room the evening of 02/11/2018. He was aware he came in earlier today. He was aware where he lives at, but short-term memory is impaired. He has a tendency to minimize what prompted this admission and stated it was because of the pain. Speech is coherent, abstraction fair, computation impaired, language function intact. No active suicidal or homicidal ideation. Short term memory is impaired. Attention span short. REACTION TO HOSPITALIZATION: The patient accepting of assets. Stable living at the [facility]. IMPRESSION: Major depressive disorder, recurrent; anxiety disorder, unspecified; impulse control disorder, unspecified; mild cognitive impairment versus major neurocognitive disorder, Alzheimer, vascular with depression, behavioral disturbance. Rest as above. PLAN: Admit to geropsychiatry unit at [facility]. I will see the patient daily individually from a psychiatric standpoint, medical followup with Dr. Stewart/Dr. Valentin. We will address the pain issues per Dr. Stewart. Observe him baseline, then make further adjustments in his psychotropics including adjusting the Seroquel. May also consider a mood stabilizer. MAN Milton WILLIAMSON MD DR: NISHI/torie JOB#: [id number] / [id number]
[2018-02-12 06:24] VITALS: BP 123/77
[2018-02-12 07:23] LABS: BASO % 1 % (0-3); EOS # 0.2 x10^3/uL (0.0-0.7); EOS % 5 % (0-3); HEMATOCRIT 37.7 % (39.0-53.0); HEMOGLOBIN 12.9 g/dL (13.0-17.5); LYMPH # 1.2 x10^3/uL (1.0-4.8); LYMPH % 30 % (24-48); MEAN CORPUSCULAR HEMOGLOBIN 30 pg (25-35); MEAN CORPUSCULAR HGB CONC 34 g/dL (31-37); MEAN CORPUSCULAR VOLUME 87 fL (79-100); MONO # 0.5 x10^3/uL (0.0-1.1); MONO % 13 % (0-9); NEUT # 2.1 x10^3uL (1.8-7.7); NEUT % 52 % (31-73); PLATELET COUNT 173 x10^3/uL (140-400); RED BLOOD COUNT 4.32 x10^6/uL (4.30-5.70); RED CELL DISTRIBUTION WIDTH 12.4 % (11.5-14.5)
[2018-02-12 07:31] LABS: ALBUMIN 3.9 g/dL (3.4-5.0); ALBUMIN/GLOBULIN RATIO 1.2 (1.0-1.7); CALCIUM 8.8 mg/dL (8.5-10.1); GFR 72.5; MAGNESIUM 1.7 mg/dL (1.8-2.4); TOTAL BILIRUBIN 0.5 mg/dL (0.2-1.0); TOTAL PROTEIN 7.2 g/dL (6.4-8.2)
[2018-02-12] MEDS: QUEtiapine 50 MG TABLET. PO SCH ×2 (08:15→19:45)
[2018-02-12] MEDS: DOCUSATE SODIUM 100 MG CAPSULE PO SCH ×2 (08:15→19:46)
[2018-02-12] MEDS: busPIRone 5 MG TABLET. PO SCH (08:16)
[2018-02-12] MEDS: FLUTICASONE 50MCG/NASAL SPRAY 16GM BOTTLE. NS SCH (08:18)
[2018-02-12] MEDS: INSULIN LISPRO 300 UNITS/3 ML INSULN.PEN. SQ SCH ×6 (08:23→19:56)
[2018-02-12] MEDS: POTASSIUM CHLORIDE 10 MEQ TABLET.ER. PO SCH (08:26)
[2018-02-12] MEDS: metFORMIN 500 MG TABLET PO SCH ×2 (08:27→17:24)
[2018-02-12] MEDS: ASPIRIN ENTERIC COATED 81 MG TABLET.DR. PO SCH (08:29)
[2018-02-12] MEDS: FERROUS SULFATE 325 MG TABLET. PO SCH ×3 (08:29→17:00)
[2018-02-12] MEDS: POLYVINYL ALCOHOL 1.4% OPHTH SOLUTION 15ML BOTTLE. OU SCH ×4 (08:31→19:51)
[2018-02-12] MEDS: CYANOCOBALAMIN (VITAMIN B-12) 1,000 MCG TABLET. PO SCH (08:39)
[2018-02-12] MEDS: DULoxetine HCL 30 MG CAPSULE.DR PO SCH (08:39)
[2018-02-12] MEDS: MULTIVITAMIN with MINERAL TABLET. PO SCH (08:39)
[2018-02-12] MEDS: SENNOSIDES 8.6 MG TABLET PO SCH (08:39)
[2018-02-12] MEDS: MEMANTINE 10 MG TABLET. PO SCH (08:39)
[2018-02-12] MEDS: PREGABALIN 50 MG CAPSULE PO SCH ×2 (08:40→19:50)
[2018-02-12] MEDS: NALOXEGOL OXALATE 25 MG TABLET. PO SCH (08:44)
[2018-02-12] MEDS: PROPAFENONE 150 MG TABLET. PO SCH ×2 (08:46→19:50)
[2018-02-12] MEDS: CETIRIZINE HCL 10 MG TABLET PO SCH (08:48)
[2018-02-12] MEDS: HYDROcodone/APAP 5/325MG 1 TAB TABLET PO PRN (10:22)
[2018-02-12 14:12] LABS: THYROID STIM HORMONE (TSH) 2.481 uIU/mL (0.358-3.740)
[2018-02-12 16:19] VITALS: BP 169/74
[2018-02-12 19:22] LABS: T3 TOTAL 93 ng/dL (71-180); THYROXINE 4.8 ug/dL (4.5-12.0)
[2018-02-12] MEDS: POLYETHYLENE GLYCOL 3350 17 GM PACKET. PO SCH (19:44)
[2018-02-12] MEDS: NORTRIPTYLINE 25 MG CAPSULE PO SCH (19:45)
[2018-02-12] MEDS: traZODone 50 MG TABLET. PO SCH (19:46)
[2018-02-12] MEDS: DONEPEZIL HCL 10 MG TABLET PO SCH (19:46)
[2018-02-12] MEDS: busPIRone 10 MG TABLET. PO SCH (19:50)
[2018-02-12] MEDS: LORazepam 0.5 MG TABLET PO SCH (19:51)
[2018-02-12] MEDS: DICLOFENAC SODIUM 1% TOPICAL GEL 100GM TUBE. TP PRN (19:52)
[2018-02-12] MEDS: INSULIN GLARGINE 300 UNITS/3 ML INSULN.PEN. SQ SCH (19:56)
[2018-02-12] MEDS: ATORVASTATIN CALCIUM 10 MG TABLET. PO SCH (19:57)
--- NOTE | 2018-02-12 20:50 | PDOC ---
Exam Note: Maxx Note: Please also refer to the separate dictated note~for this date of service dictated separately.~Patient seen individually. Discussed the patient with Nursing staff reviewed the chart.~Reviewed interim history and current functioning. Reviewed vital signs,~Labs/ Radiology~and current medications noted below. Continue current treatment with the changes noted in the dictated addendum note Assessment: Vital Signs: Vital Signs Date Time Temp Pulse Resp B/P (MAP) Pulse Ox O2 Delivery O2 Flow Rate FiO2 02/12/18 19:50 73 169/74 02/12/18 16:19 97.3 16 96 02/12/18 11:31 Room Air I&O Intake and Output 02/12/18 07:00 Intake Total 480 ml Balance 480 ml Intake Oral 480 ml Labs: Laboratory Tests Test 02/12/18 07:00 02/12/18 08:07 02/12/18 11:29 02/12/18 16:41 White Blood Count 4.0 x10^3/uL (4.0-11.0) Red Blood Count 4.32 x10^6/uL (4.30-5.70) Hemoglobin 12.9 g/dL (13.0-17.5) L Hematocrit 37.7 % (39.0-53.0) L Mean Corpuscular Volume 87 fL (79-100) Mean Corpuscular Hemoglobin 30 pg (25-35) Mean Corpuscular Hemoglobin Concent 34 g/dL (31-37) Red Cell Distribution Width 12.4 % (11.5-14.5) Platelet Count 173 x10^3/uL (140-400) Neutrophils (%) (Auto) 52 % (31-73) Lymphocytes (%) (Auto) 30 % (24-48) Monocytes (%) (Auto) 13 % (0-9) H Eosinophils (%) (Auto) 5 % (0-3) H Basophils (%) (Auto) 1 % (0-3) Neutrophils # (Auto) 2.1 x10^3uL (1.8-7.7) Lymphocytes # (Auto) 1.2 x10^3/uL (1.0-4.8) Monocytes # (Auto) 0.5 x10^3/uL (0.0-1.1) Eosinophils # (Auto) 0.2 x10^3/uL (0.0-0.7) Basophils # (Auto) 0.0 x10^3/uL (0.0-0.2) Sodium Level 139 mmol/L (136-145) Potassium Level 4.0 mmol/L (3.5-5.1) Chloride Level 101 mmol/L (98-107) Carbon Dioxide Level 31 mmol/L (21-32) Anion Gap 7 (6-14) Blood Urea Nitrogen 10 mg/dL (8-26) Creatinine 1.0 mg/dL (0.7-1.3) Estimated GFR (Cockcroft-Gault) 72.5 BUN/Creatinine Ratio 10 (6-20) Glucose Level 233 mg/dL (70-99) H Calcium Level 8.8 mg/dL (8.5-10.1) Magnesium Level 1.7 mg/dL (1.8-2.4) L Iron Level 71 ug/dL (65-175) Total Iron Binding Capacity 286 ug/dL (250-450) Iron Saturation 25 % (15-34) Total Bilirubin 0.5 mg/dL (0.2-1.0) # Aspartate Amino Transferase (AST) 14 U/L (15-37) L Alanine Aminotransferase (ALT) 20 U/L (16-63) Alkaline Phosphatase 55 U/L (46-116) Total Protein 7.2 g/dL (6.4-8.2) Albumin 3.9 g/dL (3.4-5.0) Albumin/Globulin Ratio 1.2 (1.0-1.7) Triglycerides Level 202 mg/dL (0-150) H Cholesterol Level 175 mg/dL (0-200) LDL Cholesterol, Calculated 94 mg/dL (0-100) VLDL Cholesterol, Calculated 40 mg/dL (0-40) Non-HDL Cholesterol Calculated 134 mg/dL (0-129) H HDL Cholesterol 41 mg/dL (40-60) Cholesterol/HDL Ratio 4.0 Vitamin B12 Level 665 pg/mL (247-911) 25-Hydroxy Vitamin D Total 11.3 ng/mL (30-100) L Thyroid Stimulating Hormone (TSH) 2.481 uIU/mL (0.358-3.740) Thyroxine (T4) 4.8 ug/dL (4.5-12.0) Total Triiodothyronine (TT3) 93 ng/dL (71-180) Rapid Plasma Reagin Pending Glucose (Fingerstick) 257 mg/dL (70-99) H 205 mg/dL (70-99) H 175 mg/dL (70-99) H Test 02/12/18 19:20 Glucose (Fingerstick) 137 mg/dL (70-99) H Current Medications: Meds: Current Medications Acetaminophen (Tylenol) 650 mg PRN Q6HRS PRN PO PAIN / TEMP; Start 02/11/18 at 17:30 Multi-Ingredient Ointment (Analgesic [place]) 1 jonathan PRN QID PRN TP MUSCLE PAIN; Start 02/11/18 at 17:30 Al Hydroxide/Mg Hydroxide (Mylanta Plus Xs) 15 ml PRN AFTMEALHC PRN PO DYSPEPSIA; Start 02/11/18 at 17:30 Magnesium Hydroxide (Milk Of Magnesia) 2,400 mg PRN QHS PRN PO CONSTIPATION; Start 02/11/18 at 17:30 Cyanocobalamin (Vitamin B-12) 1,000 mcg DAILY PO Last administered on at 08:39; Start 02/12/18 at 09:00 Diclofenac Sodium (Voltaren) 1 jonathan QIDPRN PRN TP PAIN Last administered on 02/12 19:52; Start 02/11/18 at 17:45 Ferrous Sulfate (Feosol) 325 mg TIDWMEALS PO Last administered on 02/12/18at 17: 00; Start 02/12/18 at 08:00 Insulin Glargine (Lantus) 15 units QHS SQ Last administered on 02/12/18 19:56 ; Start 02/11/18 at 21:00 Naloxegol (Movantik) 25 mg DAILY PO Last administered on 02/12/18 08:44; Start 02/12/18 at 09:00 Nortriptyline HCl (Pamelor) 50 mg HS PO Last administered on 02/12/18 19:45; Start 02/11/18 at 21:00 Polyethylene Glycol (miraLAX) 17 gm HS PO Last administered on 02/12/18 19:44 ; Start 02/11/18 at 21:00 Pregabalin (Lyrica) 50 mg BID PO Last administered on 02/12/18at 19:50; Start at 21:00 Aspirin (Aspirin Enteric Coated) 81 mg DAILYWBKFT PO Last administered on 08:29; Start 02/12/18 at 08:00 Buspirone HCl (Buspar) 5 mg BID PO Last administered on 02/12/18 08:16; Start 02/11/18 at 21:00; Stop 02/12/18 at 18:31; Status DC Artificial Tears (Artificial Tears) 1 drop QID OU Last administered on at 19:51; Start 02/11/18 at 21:00 Glucose (Insta-Glucose) 15 gm PRN Q15MIN PRN PO LOW BLOOD SUGAR; Start at 18:00 Docusate Sodium (Colace) 100 mg BID PO Last administered on 02/12/18 19:46; Start 02/11/18 at 21:00 Donepezil HCl (Aricept) 10 mg QHS PO Last administered on 02/12/18 19:46; Start 02/11/18 at 21:00 Duloxetine HCl (Cymbalta) 90 mg DAILY PO Last administered on 02/12/18 08:39; Start 02/12/18 at 09:00 Fluticasone Propionate (Flonase) 2 spray DAILY NS Last administered on 08:18; Start 02/12/18 at 09:00 Non-Formulary Medication (Glucagon,Human Recombinant (Glucagon Emergency Kit)) 1 mg PRN IM ; Start 02/11/18 at 17:45; Status UNV Artificial Tears (Artificial Tears) 1 drop PRN Q6HRS PRN OU DRY EYE; Start at 18:15 Acetaminophen/ Hydrocodone Bitart (Lortab 5/325) 1 tab PRN Q6HRS PRN PO PAIN Last administered on 02/12/18 10:22; Start 02/11/18 at 18:00 Insulin Human Lispro (HumaLOG) 5 units TIDWMEALS SQ Last administered on at 17:23; Start 02/11/18 at 18:00 Loperamide HCl (Imodium) 2 mg PRN Q15MIN PRN PO DIARRHEA; Start 02/11/18 at 18: 00 Cetirizine HCl (ZyrTEC) 10 mg DAILY PO Last administered on 02/12/18 08:48; Start 02/12/18 at 09:00 Lorazepam (Ativan) 0.5 mg PRN Q6HRS PRN PO ANXIETY / AGITATION Last administered on 02/12/18 19:51; Start 02/11/18 at 18:00 Lorazepam (Ativan) 0.5 mg QHS PO Last administered on 02/12/18 19:51; Start at 21:00 Magnesium Hydroxide (Milk Of Magnesia) 2,400 mg PRN QHS PRN PO CONSTIPATION; Start 02/11/18 at 18:00 Metformin HCl (Glucophage) 1,000 mg BIDWMEALS PO Last administered on 17:24; Start 02/12/18 at 08:00 Multivitamins/ Calcium (Thera-M Plus) 1 tab DAILY PO Last administered on 08:39; Start 02/12/18 at 09:00 Non-Formulary Medication (Pectin (Throat Drops)) 1 lozenge PRN Q4HRS PRN MM sore throat; Start 02/11/18 at 17:45; Status UNV Potassium Chloride (Klor-Con) 10 meq DAILYWBKFT PO Last administered on 08:26; Start 02/12/18 at 08:00 Atorvastatin Calcium (Lipitor) 5 mg QHS PO Last administered on 02/12/18 19:57 ; Start 02/11/18 at 21:00 Propafenone HCl (Rythmol) 75 mg BID PO Last administered on 02/12/18 19:50; Start 02/11/18 at 21:00 Quetiapine Fumarate (SEROquel) 75 mg BID PO Last administered on 02/12/18 19: 45; Start 02/11/18 at 21:00 Sennosides (Senna) 17.2 mg DAILY PO Last administered on 02/12/18 08:39; Start 02/12/18 at 09:00 Trazodone HCl (Desyrel) 50 mg QHS PO Last administered on 02/12/18 19:46; Start 02/11/18 at 21:00 Insulin Human Lispro (HumaLOG) 0-9 UNITS QIDACHS SQ Last administered on at 17:20; Start 02/12/18 at 07:30 Dextrose 12.5 gm PRN Q15MIN PRN IV SEE COMMENTS; Start 02/11/18 at 18:00 Non-Formulary Medication (Insulin Aspart (Novolog)) 200-249=5u, 250-299=7u, 300- 349=10u,... QIDACHS SQ ; Start 02/11/18 at 21:00; Status UNV Memantine (Namenda) 10 mg DAILY PO Last administered on 02/12/18at 08:39; Start 02/12/18 at 09:00 Buspirone HCl (Buspar) 10 mg BID PO Last administered on 02/12/18at 19:50; Start 02/12/18 at 21:00 Active Scripts Active Reported Namenda (Memantine Hcl) 10 Mg Tablet 10 Mg PO DAILY Zofran Odt (Ondansetron) 4 Mg Tab.rapdis 4 Mg PO PRN Q4HRS PRN 30 Days Voltaren (Diclofenac Sodium) 100 Gm Gel..gram. 1 Gm TP QIDPRN PRN Vitamin B-12 (Cyanocobalamin (Vitamin B-12)) 1,000 Mcg Tablet 1,000 Mcg PO DAILY Trazodone Hcl 50 Mg Tablet 50 Mg PO HS Throat Drops (Pectin) 2.8 Mg Lozenge 1 Lozenge MM PRN Q4HRS PRN Seroquel (Quetiapine Fumarate) 25 Mg Tablet 75 Mg PO BID Senna (Sennosides) 8.6 Mg Tablet 17.2 Mg PO DAILY Rythmol Sr (Propafenone Hcl) 225 Mg Cap.er.12h 75 Mg PO BID Pravastatin Sodium 10 Mg Tablet 10 Mg PO HS Potassium Chloride 10 Meq Tablet.er 10 Meq PO DAILY Novolog (Insulin Aspart) 100 Unit/1 Ml Cartridge 5 Unit SQ TIDWMEALS Novolog (Insulin Aspart) 100 Unit/1 Ml Cartridge 1-20 Unit SQ QIDACHS Nortriptyline Hcl 25 Mg Capsule 50 Mg PO HS Natural Balance Tears Eye Drop (Dextran 70/Hypromellose) 15 Ml Drops 1 Ml OP [id number] Multiple Vitamin (Multivitamin With Minerals) 1 Each Tablet 1 Each PO DAILY Movantik (Naloxegol Oxalate) 25 Mg Tablet 25 Mg PO DAILY Miralax (Polyethylene Glycol 3350) 119 Gm Powder 17 Gm PO HS Milk Of Magnesia (Magnesium Hydroxide) 2,400 Mg/10 Ml Oral.susp 2,400 Mg PO PRN QHS PRN Metformin Hcl 1,000 Mg Tablet 1,000 Mg PO BID Lyrica (Pregabalin) 50 Mg Capsule 50 Mg PO BID Lubricant Eye Drops (Glycerin/Propylene Glycol) 15 Ml Drops 1 Ml OP PRN Q6HRS PRN Lorazepam 0.5 Mg Tablet 0.5 Mg PO PRN Q6HRS PRN Loratadine 10 Mg Tablet 10 Mg PO DAILY Lantus Solostar (Insulin Glargine,Hum.rec.anlog) 100 Unit/1 Ml Insuln.pen 15 Unit SQ QHS Imodium A-D (Loperamide HCl) 2 Mg Capsule 2 Mg PO PRN Q15MIN PRN Hydrocodone-Apap 5-325 (Hydrocodone Bit/Acetaminophen) 1 Each Tablet 1 Tab PO QID PRN Glucose Gel (Dextrose) 38 Gm Gel..gram. 1 Packet PO PRN PRN Glucagon Emergency Kit (Glucagon,Human Recombinant) 1 Mg Kit 1 Mg IM PRN Flonase Allergy Relief (Fluticasone Propionate) 9.9 Ml [place].susp 2 Sprays NS DAILY Feosol (Ferrous Sulfate) 325 Mg Tablet 325 Mg PO PRN TID PRN Cymbalta (Duloxetine Hcl) 30 Mg Capsule.dr 90 Mg PO DAILY Colace (Docusate Sodium) 100 Mg Capsule 100 Mg PO BID Buspirone Hcl 5 Mg Tablet 5 Mg PO BID Ativan (Lorazepam) 0.5 Mg Tablet 0.5 Mg PO HS Aspirin 81 Mg Tab.chew 81 Mg PO DAILY Aricept (Donepezil Hcl) 10 Mg Tablet 10 Mg PO HS [acetasol 2-1%] 3 Drop AU I have reviewed the current psychotropics carefully including drug interactions. Risk benefit ratio favors no change other than as noted in my dictated progress note. Diagnosis: Problems: (1) Major depressive disorder (2) Anxiety disorder (3) Impulse control disorder (4) Mild cognitive impairment ANDRES WILLIAMSON MD February 12, 2018 20:50
[2018-02-13 03:12] LABS: HEMOGLOBIN A1C 9.5 % (4.8-5.6)
[2018-02-13 06:07] VITALS: BP 173/65
[2018-02-13] MEDS: INSULIN LISPRO 300 UNITS/3 ML INSULN.PEN. SQ SCH ×7 (07:30→20:09)
[2018-02-13] MEDS: CYANOCOBALAMIN (VITAMIN B-12) 1,000 MCG TABLET. PO SCH (08:18)
[2018-02-13] MEDS: ASPIRIN ENTERIC COATED 81 MG TABLET.DR. PO SCH (08:18)
[2018-02-13] MEDS: DULoxetine HCL 30 MG CAPSULE.DR PO SCH (08:18)
[2018-02-13] MEDS: metFORMIN 500 MG TABLET PO SCH ×2 (08:18→17:02)
[2018-02-13] MEDS: QUEtiapine 50 MG TABLET. PO SCH ×2 (08:19→20:09)
[2018-02-13] MEDS: SENNOSIDES 8.6 MG TABLET PO SCH (08:19)
[2018-02-13] MEDS: MULTIVITAMIN with MINERAL TABLET. PO SCH (08:20)
[2018-02-13] MEDS: busPIRone 10 MG TABLET. PO SCH ×2 (08:20→20:08)
[2018-02-13] MEDS: FERROUS SULFATE 325 MG TABLET. PO SCH ×3 (08:20→17:02)
[2018-02-13] MEDS: MEMANTINE 10 MG TABLET. PO SCH (08:20)
[2018-02-13] MEDS: DOCUSATE SODIUM 100 MG CAPSULE PO SCH ×2 (08:20→20:08)
[2018-02-13] MEDS: NALOXEGOL OXALATE 25 MG TABLET. PO SCH (08:20)
[2018-02-13] MEDS: POTASSIUM CHLORIDE 10 MEQ TABLET.ER. PO SCH (08:20)
[2018-02-13] MEDS: PROPAFENONE 150 MG TABLET. PO SCH ×2 (08:21→20:14)
[2018-02-13] MEDS: CETIRIZINE HCL 10 MG TABLET PO SCH (08:21)
[2018-02-13] MEDS: FLUTICASONE 50MCG/NASAL SPRAY 16GM BOTTLE. NS SCH (08:23)
[2018-02-13] MEDS: POLYVINYL ALCOHOL 1.4% OPHTH SOLUTION 15ML BOTTLE. OU SCH ×4 (08:23→20:15)
[2018-02-13] MEDS: DICLOFENAC SODIUM 1% TOPICAL GEL 100GM TUBE. TP PRN ×2 (08:27→20:21)
[2018-02-13] MEDS: PREGABALIN 50 MG CAPSULE PO SCH ×2 (08:28→20:14)
--- NOTE | 2018-02-13 10:31 | CONS ---
DATE OF CONSULTATION: 02/12/2018 REASON FOR CONSULTATION: Medical management. HISTORY OF PRESENT ILLNESS: The patient is a 77-year-old male patient, a resident at [facility] who apparently was referred by his primary care physician on account of increased agitation, kicking at doors, attempting to elope. Apparently, he has been recently more depressed and anxious, attributes much of this to his pain. However, with [facility] with him kicking at the door, attempting to elope, yelling, throwing things with worsening agitation, he was deemed potential danger to others around him and himself and was referred for inpatient psychiatric stabilization. He apparently was scheduled for surgery, but he changed his mind at the last moment. PAST MEDICAL HISTORY: Significant for type 2 diabetes, hypertension, hyperlipidemia, severe chronic back pain, has also chronic opioid-induced constipation. PAST SURGICAL HISTORY: Unremarkable. ALLERGIES: He has no known drug allergies. MEDICATIONS: He is currently on following medications; He is on loratadine 10 mg once a day, Aricept 10 mg at bedtime, ferrous sulfate 325 mg 3 times a day, propafenone 225 mg ____ 75 mg twice a day, pravastatin sodium 10 mg at bedtime, aspirin 81 mg once a day, diclofenac sodium for Voltaren gel 1 gram 4 times a day, hydrocodone/APAP 5/325 one tablet 4 times a day, pregabalin for Lyrica 50 mg twice a day, duloxetine for Cymbalta 90 mg daily. He is on nortriptyline 50 mg at bedtime, trazodone 50 mg at bedtime, quetiapine fumarate for Seroquel 75 mg twice a day, lorazepam 0.5 mg at bedtime, lorazepam 0.5 mg every 6 hours as needed, buspirone 5 mg twice a day, Namenda 10 mg daily, potassium chloride 10 mEq once a day, Flonase 2 sprays to each nostril once a day, Natural Tears 1 drop to both eyes 4 times a day, lubricant eye drops 1 drop to both eyes every 6 hours, loperamide 2 mg every 4 hours as needed, Colace 100 mg twice a day, milk of magnesia 30 mL p.o. daily p.r.n. for constipation, MiraLax 17 grams p.o. daily, senna 2 tablets daily, ondansetron 4 mg every 4 hours as needed, Movantik 25 mg once a day, metformin 1000 mg p.o. b.i.d. He is on NovoLog insulin as per insulin sliding scale. He is on 5 units before meals and Lantus insulin 15 units at bedtime. He is on glucagon 1 mg intramuscular as needed for hypoglycemia, cyanocobalamin, vitamin B12 1000 mcg once a day, multivitamin 1 tablet once a day. FAMILY HISTORY: Unremarkable. SOCIAL HISTORY: He apparently has been a resident at this facility for almost 6 years according to him. He has 1 son who lives in [place] and used to chew tobacco and drink alcohol and worked as a assembler installer structures. PHYSICAL EXAMINATION: GENERAL: On examining him, he was sitting comfortably in his chair in no apparent respiratory distress. He was pale, but not jaundiced, cyanosis or thyromegaly. No jugular venous distension. No lower limb edema. VITAL SIGNS: His heart rate was 64, blood pressure was 123/77, temperature was 98.2, respiratory rate 20, and oxygen saturation was 95% on room air. HEAD, EYES, EARS, NOSE, AND THROAT: Showed normocephalic, atraumatic. NECK: Supple. HEART: Showed normal first and second heart sounds with no gallop, rub or murmur. CHEST: Clear to auscultation. No crepitation or rhonchi. ABDOMEN: Distended, soft, nontender. NEUROLOGIC: He is awake, alert, responding appropriately. His cranial nerves intact. He moves all his extremities without difficulty. Apparently, he has some discrepancy in length of his extremities, and by his description, he has what seemed to be right-sided lumbar radicular pain, probably in the form of sciatica. He apparently was seen before by Dr. Cruz and apparently, he was scheduled for probably some form of back surgery, but he just changed his mind at the last moment, said he was scared. LABORATORY DATA: Showed white cell count of 4000, hemoglobin 13, hematocrit 38, MCV 87, and platelet count of 173,000 with normal manual differential. His serum sodium was 139, potassium 4, chloride 101, bicarbonate 31, anion gap of 7, BUN 10, creatinine 1, estimated GFR was 72 mL per minute. His glucose was 233, calcium was 8.8, magnesium was 1.7. Serum iron was 71, TIBC was 286, percent saturation was 25%. Total bilirubin, AST, ALT, alkaline phosphatase were normal. Total protein 7.2, albumin was 3.9. Serum triglycerides was ____, total cholesterol 175, LDL was 94, VLDL was 40, and HDL cholesterol of 41. Cholesterol to HDL ratio was only 4. TSH was 2.48. Urinalysis showed the urine was yellow, clear with a pH of 5.5, specific gravity 1.020. The urine was negative for protein, large amount of glucose, trace of ketones, small amount of blood. The urine was negative for nitrite and leukocyte esterase; there was 1-2 rbc's, 1-4 wbc's, and no bacteria. IMPRESSION AND PLAN: In summary, this is a 77-year-old male patient who was referred from [facility] on account of increased agitation, kicking at doors, attempting to elope. He states it has been getting depressed and anxious, but attributes much of this to the pain. Has had some sleep and appetite changes ____ his behavior [facility] been [facility]able [facility] with him kicking at the door, attempting to elope, yelling, throwing things with worsening. Medically, he has multiple medical problems including hypertension, hyperlipidemia, type 2 diabetes, and also what seems to be atrial fibrillation. Has also chronic back pain, what seems to have some form of right lumbar radiculopathy, probably some kind of perhaps scoliosis. Given the discrepancy in the length of his lower extremities, he was scheduled for some form of surgery that he declined as he was scared, and probably, his uncontrolled pain is the reason for his agitation. Has had a lengthy discussion with him regarding the safety and merits of surgery. He seems to be agreeable to that. Meanwhile increasing his Lyrica might help, although eventually, he might benefit from lumbar spine laminectomy. Thank you Dr. Roe for allowing me to participate in the care of this patient. DAVID CEBALLOS MD DR: GENE/torie JOB#: [id number] / [id number]
[2018-02-13] MEDS: HYDROcodone/APAP 5/325MG 1 TAB TABLET PO PRN (12:17)
[2018-02-13 16:17] VITALS: BP 138/82
[2018-02-13] MEDS ORDERED: CHOLECALCIFEROL (VITAMIN D3) 50,000 UNIT CAPSULE PO SCH (19:00)
[2018-02-13] MEDS: DONEPEZIL HCL 10 MG TABLET PO SCH (20:08)
[2018-02-13] MEDS: ATORVASTATIN CALCIUM 10 MG TABLET. PO SCH (20:08)
[2018-02-13] MEDS: NORTRIPTYLINE 25 MG CAPSULE PO SCH (20:09)
[2018-02-13] MEDS: traZODone 50 MG TABLET. PO SCH (20:09)
[2018-02-13] MEDS: POLYETHYLENE GLYCOL 3350 17 GM PACKET. PO SCH ×3 (20:10→20:35)
[2018-02-13] MEDS: LORazepam 0.5 MG TABLET PO SCH (20:13)
[2018-02-13] MEDS: INSULIN GLARGINE 300 UNITS/3 ML INSULN.PEN. SQ SCH (20:21)
--- NOTE | 2018-02-13 21:05 | PDOC ---
Exam Note: Maxx Note: Please also refer to the separate dictated note~for this date of service dictated separately.~Patient seen individually. Discussed the patient with Nursing staff reviewed the chart.~Reviewed interim history and current functioning. Reviewed vital signs,~Labs/ Radiology~and current medications noted below. Continue current treatment with the changes noted in the dictated addendum note Assessment: Vital Signs: Vital Signs Date Time Temp Pulse Resp B/P (MAP) Pulse Ox O2 Delivery O2 Flow Rate FiO2 02/13/18 20:14 74 138/82 02/13/18 16:17 96.6 18 94 Room Air I&O Intake and Output 02/13/18 07:00 Intake Total 720 ml Balance 720 ml Intake Oral 720 ml Labs: Laboratory Tests Test 02/13/18 07:11 02/13/18 11:25 02/13/18 16:16 02/13/18 19:24 Glucose (Fingerstick) 209 mg/dL (70-99) H 156 mg/dL (70-99) H 149 mg/dL (70-99) H 189 mg/dL (70-99) H Current Medications: Meds: Current Medications Acetaminophen (Tylenol) 650 mg PRN Q6HRS PRN PO PAIN / TEMP; Start 02/11/18 at 17:30 Multi-Ingredient Ointment (Analgesic [place]) 1 jonathan PRN QID PRN TP MUSCLE PAIN; Start 02/11/18 at 17:30 Al Hydroxide/Mg Hydroxide (Mylanta Plus Xs) 15 ml PRN AFTMEALHC PRN PO DYSPEPSIA; Start 02/11/18 at 17:30 Magnesium Hydroxide (Milk Of Magnesia) 2,400 mg PRN QHS PRN PO CONSTIPATION; Start 02/11/18 at 17:30 Cyanocobalamin (Vitamin B-12) 1,000 mcg DAILY PO Last administered on at 08:18; Start 02/12/18 at 09:00 Diclofenac Sodium (Voltaren) 1 jonathan QIDPRN PRN TP PAIN Last administered on 02/13at 20:21; Start 02/11/18 at 17:45 Ferrous Sulfate (Feosol) 325 mg TIDWMEALS PO Last administered on 02/13/18at 17: 02; Start 02/12/18 at 08:00 Insulin Glargine (Lantus) 15 units QHS SQ Last administered on 02/13/18 20:21 ; Start 02/11/18 at 21:00 Naloxegol (Movantik) 25 mg DAILY PO Last administered on 02/13/18 08:20; Start 02/12/18 at 09:00 Nortriptyline HCl (Pamelor) 50 mg HS PO Last administered on 02/13/18 20:09; Start 02/11/18 at 21:00 Polyethylene Glycol (miraLAX) 17 gm HS PO Last administered on 02/12/18 19:44 ; Start 02/11/18 at 21:00 Pregabalin (Lyrica) 50 mg BID PO Last administered on 02/13/18 20:14; Start at 21:00 Aspirin (Aspirin Enteric Coated) 81 mg DAILYWBKFT PO Last administered on 08:18; Start 02/12/18 at 08:00 Buspirone HCl (Buspar) 5 mg BID PO Last administered on 02/12/18 08:16; Start 02/11/18 at 21:00; Stop 02/12/18 at 18:31; Status DC Artificial Tears (Artificial Tears) 1 drop QID OU Last administered on 20:15; Start 02/11/18 at 21:00 Glucose (Insta-Glucose) 15 gm PRN Q15MIN PRN PO LOW BLOOD SUGAR; Start at 18:00 Docusate Sodium (Colace) 100 mg BID PO Last administered on 02/13/18 20:08; Start 02/11/18 at 21:00 Donepezil HCl (Aricept) 10 mg QHS PO Last administered on 02/13/18 20:08; Start 02/11/18 at 21:00 Duloxetine HCl (Cymbalta) 90 mg DAILY PO Last administered on 02/13/18 08:18; Start 02/12/18 at 09:00 Fluticasone Propionate (Flonase) 2 spray DAILY NS Last administered on 08:23; Start 02/12/18 at 09:00 Non-Formulary Medication (Glucagon,Human Recombinant (Glucagon Emergency Kit)) 1 mg PRN IM ; Start 02/11/18 at 17:45; Status UNV Artificial Tears (Artificial Tears) 1 drop PRN Q6HRS PRN OU DRY EYE; Start at 18:15 Acetaminophen/ Hydrocodone Bitart (Lortab 5/325) 1 tab PRN Q6HRS PRN PO PAIN Last administered on 02/13/18 12:17; Start 02/11/18 at 18:00 Insulin Human Lispro (HumaLOG) 5 units TIDWMEALS SQ Last administered on 17:03; Start 02/11/18 at 18:00 Loperamide HCl (Imodium) 2 mg PRN Q15MIN PRN PO DIARRHEA; Start 02/11/18 at 18: 00 Cetirizine HCl (ZyrTEC) 10 mg DAILY PO Last administered on 02/13/18 08:21; Start 02/12/18 at 09:00 Lorazepam (Ativan) 0.5 mg PRN Q6HRS PRN PO ANXIETY / AGITATION Last administered on 02/12/18 19:51; Start 02/11/18 at 18:00 Lorazepam (Ativan) 0.5 mg QHS PO Last administered on 02/13/18 20:13; Start at 21:00 Magnesium Hydroxide (Milk Of Magnesia) 2,400 mg PRN QHS PRN PO CONSTIPATION; Start 02/11/18 at 18:00 Metformin HCl (Glucophage) 1,000 mg BIDWMEALS PO Last administered on 17:02; Start 02/12/18 at 08:00 Multivitamins/ Calcium (Thera-M Plus) 1 tab DAILY PO Last administered on 08:20; Start 02/12/18 at 09:00 Non-Formulary Medication (Pectin (Throat Drops)) 1 lozenge PRN Q4HRS PRN MM sore throat; Start 02/11/18 at 17:45; Status UNV Potassium Chloride (Klor-Con) 10 meq DAILYWBKFT PO Last administered on 08:20; Start 02/12/18 at 08:00 Atorvastatin Calcium (Lipitor) 5 mg QHS PO Last administered on 02/13/18 20:08 ; Start 02/11/18 at 21:00 Propafenone HCl (Rythmol) 75 mg BID PO Last administered on 02/13/18 20:14; Start 02/11/18 at 21:00 Quetiapine Fumarate (SEROquel) 75 mg BID PO Last administered on 02/13/18 20: 09; Start 02/11/18 at 21:00 Sennosides (Senna) 17.2 mg DAILY PO Last administered on 02/13/18 08:19; Start 02/12/18 at 09:00 Trazodone HCl (Desyrel) 50 mg QHS PO Last administered on 02/13/18 20:09; Start 02/11/18 at 21:00 Insulin Human Lispro (HumaLOG) 0-9 UNITS QIDACHS SQ Last administered on at 12:30; Start 02/12/18 at 07:30 Dextrose 12.5 gm PRN Q15MIN PRN IV SEE COMMENTS; Start 02/11/18 at 18:00 Non-Formulary Medication (Insulin Aspart (Novolog)) 200-249=5u, 250-299=7u, 300- 349=10u,... QIDACHS SQ ; Start 02/11/18 at 21:00; Status UNV Memantine (Namenda) 10 mg DAILY PO Last administered on 02/13/18at 08:20; Start 02/12/18 at 09:00 Buspirone HCl (Buspar) 10 mg BID PO Last administered on 02/13/18at 20:08; Start 02/12/18 at 21:00; Stop 02/13/18 at 23:00 Buspirone HCl (Buspar) 10 mg TID PO ; Start 02/14/18 at 09:00 Vitamin D (Vitamin D3) 50,000 unit WEEKLY PO Last administered on 02/13/18at 20: 15; Start 02/13/18 at 19:00 Active Scripts Active Reported Namenda (Memantine Hcl) 10 Mg Tablet 10 Mg PO DAILY Zofran Odt (Ondansetron) 4 Mg Tab.rapdis 4 Mg PO PRN Q4HRS PRN 30 Days Voltaren (Diclofenac Sodium) 100 Gm Gel..gram. 1 Gm TP QIDPRN PRN Vitamin B-12 (Cyanocobalamin (Vitamin B-12)) 1,000 Mcg Tablet 1,000 Mcg PO DAILY Trazodone Hcl 50 Mg Tablet 50 Mg PO HS Throat Drops (Pectin) 2.8 Mg Lozenge 1 Lozenge MM PRN Q4HRS PRN Seroquel (Quetiapine Fumarate) 25 Mg Tablet 75 Mg PO BID Senna (Sennosides) 8.6 Mg Tablet 17.2 Mg PO DAILY Rythmol Sr (Propafenone Hcl) 225 Mg Cap.er.12h 75 Mg PO BID Pravastatin Sodium 10 Mg Tablet 10 Mg PO HS Potassium Chloride 10 Meq Tablet.er 10 Meq PO DAILY Novolog (Insulin Aspart) 100 Unit/1 Ml Cartridge 5 Unit SQ TIDWMEALS Novolog (Insulin Aspart) 100 Unit/1 Ml Cartridge 1-20 Unit SQ QIDACHS Nortriptyline Hcl 25 Mg Capsule 50 Mg PO HS Natural Balance Tears Eye Drop (Dextran 70/Hypromellose) 15 Ml Drops 1 Ml OP [id number] Multiple Vitamin (Multivitamin With Minerals) 1 Each Tablet 1 Each PO DAILY Movantik (Naloxegol Oxalate) 25 Mg Tablet 25 Mg PO DAILY Miralax (Polyethylene Glycol 3350) 119 Gm Powder 17 Gm PO HS Milk Of Magnesia (Magnesium Hydroxide) 2,400 Mg/10 Ml Oral.susp 2,400 Mg PO PRN QHS PRN Metformin Hcl 1,000 Mg Tablet 1,000 Mg PO BID Lyrica (Pregabalin) 50 Mg Capsule 50 Mg PO BID Lubricant Eye Drops (Glycerin/Propylene Glycol) 15 Ml Drops 1 Ml OP PRN Q6HRS PRN Lorazepam 0.5 Mg Tablet 0.5 Mg PO PRN Q6HRS PRN Loratadine 10 Mg Tablet 10 Mg PO DAILY Lantus Solostar (Insulin Glargine,Hum.rec.anlog) 100 Unit/1 Ml Insuln.pen 15 Unit SQ QHS Imodium A-D (Loperamide HCl) 2 Mg Capsule 2 Mg PO PRN Q15MIN PRN Hydrocodone-Apap 5-325 (Hydrocodone Bit/Acetaminophen) 1 Each Tablet 1 Tab PO QID PRN Glucose Gel (Dextrose) 38 Gm Gel..gram. 1 Packet PO PRN PRN Glucagon Emergency Kit (Glucagon,Human Recombinant) 1 Mg Kit 1 Mg IM PRN Flonase Allergy Relief (Fluticasone Propionate) 9.9 Ml [place].susp 2 Sprays NS DAILY Feosol (Ferrous Sulfate) 325 Mg Tablet 325 Mg PO PRN TID PRN Cymbalta (Duloxetine Hcl) 30 Mg Capsule.dr 90 Mg PO DAILY Colace (Docusate Sodium) 100 Mg Capsule 100 Mg PO BID Buspirone Hcl 5 Mg Tablet 5 Mg PO BID Ativan (Lorazepam) 0.5 Mg Tablet 0.5 Mg PO HS Aspirin 81 Mg Tab.chew 81 Mg PO DAILY Aricept (Donepezil Hcl) 10 Mg Tablet 10 Mg PO HS [acetasol 2-1%] 3 Drop AU I have reviewed the current psychotropics carefully including drug interactions. Risk benefit ratio favors no change other than as noted in my dictated progress note. Diagnosis: Problems: (1) Major depressive disorder (2) Anxiety disorder (3) Impulse control disorder (4) Mild cognitive impairment ANDRES WILLIAMSON MD February 13, 2018 21:05
[2018-02-14] MEDS: DICLOFENAC SODIUM 1% TOPICAL GEL 100GM TUBE. TP PRN ×3 (00:22→21:13)
--- NOTE | 2018-02-14 03:13 | PN ---
DATE: 02/12/2018 This is a late entry of 02/12/2018 covers elements not covered in my initial note of 02/12/2018. SUBJECTIVE: I met with the patient in the evening. The patient slept 5-1/4 hours. He has been somewhat anxious, restless, complains of leg pain and this was consequent to bone spurs. CT had confirmed this and the patient had canceled a surgical appointment on two occasions per nursing report. Pain is worse post sitting. I will defer to Dr. Stewart. REVIEW OF SYSTEMS: Other than above, no CV, , pulmonary, eye system symptoms on review. MENTAL STATUS EXAM: Oriented to himself and situation. Speech is coherent, abstraction fair, computation impaired, language function intact, attention span short. Mood and affect still somewhat depressed, anxious. LABORATORY DATA: Reviewed. IMPRESSION: Unchanged from initial note. PLAN: Increase BuSpar from 5 mg b.i.d. to 10 mg b.i.d. Continue rest unchanged from initial note. MAN Milton WILLIAMSON MD DR: NISHI/torie JOB#: [id number] / [id number]
[2018-02-14 06:23] VITALS: BP 134/61
[2018-02-14] MEDS: CETIRIZINE HCL 10 MG TABLET PO SCH (08:21)
[2018-02-14] MEDS: HYDROcodone/APAP 5/325MG 1 TAB TABLET PO PRN ×2 (08:21→20:23)
[2018-02-14] MEDS: metFORMIN 500 MG TABLET PO SCH ×2 (08:21→17:00)
[2018-02-14] MEDS: busPIRone 10 MG TABLET. PO SCH ×3 (08:21→19:47)
[2018-02-14] MEDS: QUEtiapine 50 MG TABLET. PO SCH ×2 (08:22→19:48)
[2018-02-14] MEDS: POTASSIUM CHLORIDE 10 MEQ TABLET.ER. PO SCH (08:22)
[2018-02-14] MEDS: ASPIRIN ENTERIC COATED 81 MG TABLET.DR. PO SCH (08:22)
[2018-02-14] MEDS: SENNOSIDES 8.6 MG TABLET PO SCH (08:23)
[2018-02-14] MEDS: PREGABALIN 50 MG CAPSULE PO SCH ×2 (08:23→19:48)
[2018-02-14] MEDS: DOCUSATE SODIUM 100 MG CAPSULE PO SCH ×2 (08:23→19:47)
[2018-02-14] MEDS: DULoxetine HCL 30 MG CAPSULE.DR PO SCH (08:23)
[2018-02-14] MEDS: MULTIVITAMIN with MINERAL TABLET. PO SCH (08:23)
[2018-02-14] MEDS: CYANOCOBALAMIN (VITAMIN B-12) 1,000 MCG TABLET. PO SCH (08:23)
[2018-02-14] MEDS: FERROUS SULFATE 325 MG TABLET. PO SCH ×3 (08:23→18:30)
[2018-02-14] MEDS: MEMANTINE 10 MG TABLET. PO SCH (08:23)
[2018-02-14] MEDS: PROPAFENONE 150 MG TABLET. PO SCH ×2 (08:25→19:56)
[2018-02-14] MEDS: NALOXEGOL OXALATE 25 MG TABLET. PO SCH (08:26)
[2018-02-14] MEDS: POLYVINYL ALCOHOL 1.4% OPHTH SOLUTION 15ML BOTTLE. OU SCH ×4 (08:26→19:53)
[2018-02-14] MEDS: FLUTICASONE 50MCG/NASAL SPRAY 16GM BOTTLE. NS SCH (08:26)
[2018-02-14] MEDS: INSULIN LISPRO 300 UNITS/3 ML INSULN.PEN. SQ SCH ×7 (08:28→20:06)
[2018-02-14 16:14] VITALS: BP 129/70
[2018-02-14] MEDS: DONEPEZIL HCL 10 MG TABLET PO SCH (19:47)
[2018-02-14] MEDS: traZODone 50 MG TABLET. PO SCH (19:47)
[2018-02-14] MEDS: LORazepam 0.5 MG TABLET PO SCH (19:47)
[2018-02-14] MEDS: NORTRIPTYLINE 25 MG CAPSULE PO SCH (19:48)
[2018-02-14] MEDS: ATORVASTATIN CALCIUM 10 MG TABLET. PO SCH (19:48)
[2018-02-14] MEDS: POLYETHYLENE GLYCOL 3350 17 GM PACKET. PO SCH (19:48)
[2018-02-14] MEDS: INSULIN GLARGINE 300 UNITS/3 ML INSULN.PEN. SQ SCH (20:05)
--- NOTE | 2018-02-14 20:42 | PDOC ---
Exam Note: [facility] Note: Please also refer to the separate dictated note~for this date of service dictated separately.~Patient seen individually. Discussed the patient with Nursing staff reviewed the chart.~Reviewed interim history and current functioning. Reviewed vital signs,~Labs/ Radiology~and current medications noted below. Continue current treatment with the changes noted in the dictated addendum note Assessment: Vital Signs: Vital Signs Date Time Temp Pulse Resp B/P (MAP) Pulse Ox O2 Delivery O2 Flow Rate FiO2 02/14/18 20:23 94 Room Air 02/14/18 19:56 66 129/70 02/14/18 16:14 98.1 22 I&O Intake and Output 02/14/18 07:00 Intake Total 840 ml Balance 840 ml Intake Oral 840 ml Labs: Laboratory Tests Test 02/14/18 07:44 02/14/18 11:32 02/14/18 16:15 02/14/18 19:13 Glucose (Fingerstick) 187 mg/dL (70-99) H 210 mg/dL (70-99) H 56 mg/dL (70-99) L 198 mg/dL (70-99) H Current Medications: Meds: Current Medications Acetaminophen (Tylenol) 650 mg PRN Q6HRS PRN PO PAIN / TEMP; Start 02/11/18 at 17:30 Multi-Ingredient Ointment (Analgesic [place]) 1 jonathan PRN QID PRN TP MUSCLE PAIN; Start 02/11/18 at 17:30 Al Hydroxide/Mg Hydroxide (Mylanta Plus Xs) 15 ml PRN AFTMEALHC PRN PO DYSPEPSIA; Start 02/11/18 at 17:30 Magnesium Hydroxide (Milk Of Magnesia) 2,400 mg PRN QHS PRN PO CONSTIPATION; Start 02/11/18 at 17:30 Cyanocobalamin (Vitamin B-12) 1,000 mcg DAILY PO Last administered on at 08:23; Start 02/12/18 at 09:00 Diclofenac Sodium (Voltaren) 1 jonathan QIDPRN PRN TP PAIN Last administered on 02/14at 08:31; Start 02/11/18 at 17:45 Ferrous Sulfate (Feosol) 325 mg TIDWMEALS PO Last administered on 02/14/18at 18: 30; Start 02/12/18 at 08:00 Insulin Glargine (Lantus) 15 units QHS SQ Last administered on 02/14/18 20:05 ; Start 02/11/18 at 21:00 Naloxegol (Movantik) 25 mg DAILY PO Last administered on 02/14/18 08:26; Start 02/12/18 at 09:00 Nortriptyline HCl (Pamelor) 50 mg HS PO Last administered on 02/14/18 19:48; Start 02/11/18 at 21:00 Polyethylene Glycol (miraLAX) 17 gm HS PO Last administered on 02/14/18 19:48 ; Start 02/11/18 at 21:00 Pregabalin (Lyrica) 50 mg BID PO Last administered on 02/14/18 19:48; Start at 21:00 Aspirin (Aspirin Enteric Coated) 81 mg DAILYWBKFT PO Last administered on 08:22; Start 02/12/18 at 08:00 Buspirone HCl (Buspar) 5 mg BID PO Last administered on 02/12/18 08:16; Start 02/11/18 at 21:00; Stop 02/12/18 at 18:31; Status DC Artificial Tears (Artificial Tears) 1 drop QID OU Last administered on 19:53; Start 02/11/18 at 21:00 Glucose (Insta-Glucose) 15 gm PRN Q15MIN PRN PO LOW BLOOD SUGAR; Start at 18:00 Docusate Sodium (Colace) 100 mg BID PO Last administered on 02/14/18 19:47; Start 02/11/18 at 21:00 Donepezil HCl (Aricept) 10 mg QHS PO Last administered on 02/14/18 19:47; Start 02/11/18 at 21:00 Duloxetine HCl (Cymbalta) 90 mg DAILY PO Last administered on 02/14/18 08:23; Start 02/12/18 at 09:00 Fluticasone Propionate (Flonase) 2 spray DAILY NS Last administered on 08:26; Start 02/12/18 at 09:00 Non-Formulary Medication (Glucagon,Human Recombinant (Glucagon Emergency Kit)) 1 mg PRN IM ; Start 02/11/18 at 17:45; Status UNV Artificial Tears (Artificial Tears) 1 drop PRN Q6HRS PRN OU DRY EYE; Start at 18:15 Acetaminophen/ Hydrocodone Bitart (Lortab 5/325) 1 tab PRN Q6HRS PRN PO PAIN Last administered on 02/14/18 20:23; Start 02/11/18 at 18:00 Insulin Human Lispro (HumaLOG) 5 units TIDWMEALS SQ Last administered on 13:13; Start 02/11/18 at 18:00 Loperamide HCl (Imodium) 2 mg PRN Q15MIN PRN PO DIARRHEA; Start 02/11/18 at 18: 00 Cetirizine HCl (ZyrTEC) 10 mg DAILY PO Last administered on 02/14/18 08:21; Start 02/12/18 at 09:00 Lorazepam (Ativan) 0.5 mg PRN Q6HRS PRN PO ANXIETY / AGITATION Last administered on 02/12/18 19:51; Start 02/11/18 at 18:00 Lorazepam (Ativan) 0.5 mg QHS PO Last administered on 02/14/18 19:47; Start at 21:00 Magnesium Hydroxide (Milk Of Magnesia) 2,400 mg PRN QHS PRN PO CONSTIPATION; Start 02/11/18 at 18:00 Metformin HCl (Glucophage) 1,000 mg BIDWMEALS PO Last administered on 08:21; Start 02/12/18 at 08:00 Multivitamins/ Calcium (Thera-M Plus) 1 tab DAILY PO Last administered on 08:23; Start 02/12/18 at 09:00 Non-Formulary Medication (Pectin (Throat Drops)) 1 lozenge PRN Q4HRS PRN MM sore throat; Start 02/11/18 at 17:45; Status UNV Potassium Chloride (Klor-Con) 10 meq DAILYWBKFT PO Last administered on 08:22; Start 02/12/18 at 08:00 Atorvastatin Calcium (Lipitor) 5 mg QHS PO Last administered on 02/14/18 19:48 ; Start 02/11/18 at 21:00 Propafenone HCl (Rythmol) 75 mg BID PO Last administered on 02/14/18 19:56; Start 02/11/18 at 21:00 Quetiapine Fumarate (SEROquel) 75 mg BID PO Last administered on 02/14/18 19: 48; Start 02/11/18 at 21:00 Sennosides (Senna) 17.2 mg DAILY PO Last administered on 02/14/18 08:23; Start 02/12/18 at 09:00 Trazodone HCl (Desyrel) 50 mg QHS PO Last administered on 02/14/18 19:47; Start 02/11/18 at 21:00 Insulin Human Lispro (HumaLOG) 0-9 UNITS QIDACHS SQ Last administered on at 13:14; Start 02/12/18 at 07:30 Dextrose 12.5 gm PRN Q15MIN PRN IV SEE COMMENTS; Start 02/11/18 at 18:00 Non-Formulary Medication (Insulin Aspart (Novolog)) 200-249=5u, 250-299=7u, 300- 349=10u,... QIDACHS SQ ; Start 02/11/18 at 21:00; Status UNV Memantine (Namenda) 10 mg DAILY PO Last administered on 02/14/18 08:23; Start 02/12/18 at 09:00 Buspirone HCl (Buspar) 10 mg BID PO Last administered on 02/13/18at 20:08; Start 02/12/18 at 21:00; Stop 02/13/18 at 23:00; Status DC Buspirone HCl (Buspar) 10 mg TID PO Last administered on 02/14/18 19:47; Start 02/14/18 at 09:00 Vitamin D (Vitamin D3) 50,000 unit WEEKLY PO Last administered on 02/13/18 20: 15; Start 02/13/18 at 19:00 Divalproex Sodium (Depakote Sprinkles) 125 mg BID@0900,1300 PO ; Start 02/15/18 at 09:00 Active Scripts Active Reported Namenda (Memantine Hcl) 10 Mg Tablet 10 Mg PO DAILY Zofran Odt (Ondansetron) 4 Mg Tab.rapdis 4 Mg PO PRN Q4HRS PRN 30 Days Voltaren (Diclofenac Sodium) 100 Gm Gel..gram. 1 Gm TP QIDPRN PRN Vitamin B-12 (Cyanocobalamin (Vitamin B-12)) 1,000 Mcg Tablet 1,000 Mcg PO DAILY Trazodone Hcl 50 Mg Tablet 50 Mg PO HS Throat Drops (Pectin) 2.8 Mg Lozenge 1 Lozenge MM PRN Q4HRS PRN Seroquel (Quetiapine Fumarate) 25 Mg Tablet 75 Mg PO BID Senna (Sennosides) 8.6 Mg Tablet 17.2 Mg PO DAILY Rythmol Sr (Propafenone Hcl) 225 Mg Cap.er.12h 75 Mg PO BID Pravastatin Sodium 10 Mg Tablet 10 Mg PO HS Potassium Chloride 10 Meq Tablet.er 10 Meq PO DAILY Novolog (Insulin Aspart) 100 Unit/1 Ml Cartridge 5 Unit SQ TIDWMEALS Novolog (Insulin Aspart) 100 Unit/1 Ml Cartridge 1-20 Unit SQ QIDACHS Nortriptyline Hcl 25 Mg Capsule 50 Mg PO HS Natural Balance Tears Eye Drop (Dextran 70/Hypromellose) 15 Ml Drops 1 Ml OP [id number] Multiple Vitamin (Multivitamin With Minerals) 1 Each Tablet 1 Each PO DAILY Movantik (Naloxegol Oxalate) 25 Mg Tablet 25 Mg PO DAILY Miralax (Polyethylene Glycol 3350) 119 Gm Powder 17 Gm PO HS Milk Of Magnesia (Magnesium Hydroxide) 2,400 Mg/10 Ml Oral.susp 2,400 Mg PO PRN QHS PRN Metformin Hcl 1,000 Mg Tablet 1,000 Mg PO BID Lyrica (Pregabalin) 50 Mg Capsule 50 Mg PO BID Lubricant Eye Drops (Glycerin/Propylene Glycol) 15 Ml Drops 1 Ml OP PRN Q6HRS PRN Lorazepam 0.5 Mg Tablet 0.5 Mg PO PRN Q6HRS PRN Loratadine 10 Mg Tablet 10 Mg PO DAILY Lantus Solostar (Insulin Glargine,Hum.rec.anlog) 100 Unit/1 Ml Insuln.pen 15 Unit SQ QHS Imodium A-D (Loperamide HCl) 2 Mg Capsule 2 Mg PO PRN Q15MIN PRN Hydrocodone-Apap 5-325 (Hydrocodone Bit/Acetaminophen) 1 Each Tablet 1 Tab PO QID PRN Glucose Gel (Dextrose) 38 Gm Gel..gram. 1 Packet PO PRN PRN Glucagon Emergency Kit (Glucagon,Human Recombinant) 1 Mg Kit 1 Mg IM PRN Flonase Allergy Relief (Fluticasone Propionate) 9.9 Ml [place].susp 2 Sprays NS DAILY Feosol (Ferrous Sulfate) 325 Mg Tablet 325 Mg PO PRN TID PRN Cymbalta (Duloxetine Hcl) 30 Mg Capsule.dr 90 Mg PO DAILY Colace (Docusate Sodium) 100 Mg Capsule 100 Mg PO BID Buspirone Hcl 5 Mg Tablet 5 Mg PO BID Ativan (Lorazepam) 0.5 Mg Tablet 0.5 Mg PO HS Aspirin 81 Mg Tab.chew 81 Mg PO DAILY Aricept (Donepezil Hcl) 10 Mg Tablet 10 Mg PO HS [acetasol 2-1%] 3 Drop AU I have reviewed the current psychotropics carefully including drug interactions. Risk benefit ratio favors no change other than as noted in my dictated progress note. Diagnosis: Problems: (1) Major depressive disorder (2) Anxiety disorder (3) Impulse control disorder (4) Mild cognitive impairment ANDRES WILLIAMSON MD February 14, 2018 20:42
[2018-02-15 06:09] VITALS: BP 176/85
[2018-02-15] MEDS: PREGABALIN 50 MG CAPSULE PO SCH ×2 (07:26→20:40)
[2018-02-15] MEDS: metFORMIN 500 MG TABLET PO SCH ×2 (07:27→16:48)
[2018-02-15] MEDS: HYDROcodone/APAP 5/325MG 1 TAB TABLET PO PRN (07:27)
[2018-02-15] MEDS: CETIRIZINE HCL 10 MG TABLET PO SCH (07:27)
[2018-02-15] MEDS: POTASSIUM CHLORIDE 10 MEQ TABLET.ER. PO SCH (07:28)
[2018-02-15] MEDS: QUEtiapine 50 MG TABLET. PO SCH ×2 (07:28→20:32)
[2018-02-15] MEDS: CYANOCOBALAMIN (VITAMIN B-12) 1,000 MCG TABLET. PO SCH (07:28)
[2018-02-15] MEDS: NALOXEGOL OXALATE 25 MG TABLET. PO SCH (07:28)
[2018-02-15] MEDS: busPIRone 10 MG TABLET. PO SCH ×2 (07:29→12:09)
[2018-02-15] MEDS: SENNOSIDES 8.6 MG TABLET PO SCH (07:29)
[2018-02-15] MEDS: DULoxetine HCL 30 MG CAPSULE.DR PO SCH (07:29)
[2018-02-15] MEDS: FERROUS SULFATE 325 MG TABLET. PO SCH ×3 (07:29→16:48)
[2018-02-15] MEDS: MEMANTINE 10 MG TABLET. PO SCH (07:30)
[2018-02-15] MEDS: ASPIRIN ENTERIC COATED 81 MG TABLET.DR. PO SCH (07:30)
[2018-02-15] MEDS: MULTIVITAMIN with MINERAL TABLET. PO SCH (07:30)
[2018-02-15] MEDS: DOCUSATE SODIUM 100 MG CAPSULE PO SCH ×2 (07:30→20:31)
[2018-02-15] MEDS: INSULIN LISPRO 300 UNITS/3 ML INSULN.PEN. SQ SCH ×7 (07:53→20:48)
[2018-02-15] MEDS: POLYVINYL ALCOHOL 1.4% OPHTH SOLUTION 15ML BOTTLE. OU SCH ×4 (08:02→20:40)
[2018-02-15] MEDS: FLUTICASONE 50MCG/NASAL SPRAY 16GM BOTTLE. NS SCH (08:02)
[2018-02-15] MEDS: DIVALPROEX 125 MG CAP.SPRINK PO SCH ×2 (08:02→12:09)
[2018-02-15] MEDS: PROPAFENONE 150 MG TABLET. PO SCH ×2 (08:04→20:42)
[2018-02-15 16:07] VITALS: BP 116/51
[2018-02-15] MEDS: NORTRIPTYLINE 25 MG CAPSULE PO SCH (20:31)
[2018-02-15] MEDS: traZODone 50 MG TABLET. PO SCH (20:33)
[2018-02-15] MEDS: ATORVASTATIN CALCIUM 10 MG TABLET. PO SCH (20:34)
[2018-02-15] MEDS: DONEPEZIL HCL 10 MG TABLET PO SCH (20:34)
[2018-02-15] MEDS: POLYETHYLENE GLYCOL 3350 17 GM PACKET. PO SCH (20:34)
[2018-02-15] MEDS: busPIRone 15 MG TABLET. PO SCH (20:40)
[2018-02-15] MEDS: LORazepam 0.5 MG TABLET PO SCH (20:40)
--- NOTE | 2018-02-15 20:44 | PDOC ---
Exam Note: Maxx Note: Please also refer to the separate dictated note~for this date of service dictated separately.~Patient seen individually. Discussed the patient with Nursing staff reviewed the chart.~Reviewed interim history and current functioning. Reviewed vital signs,~Labs/ Radiology~and current medications noted below. Continue current treatment with the changes noted in the dictated addendum note Assessment: Vital Signs: Vital Signs Date Time Temp Pulse Resp B/P (MAP) Pulse Ox O2 Delivery O2 Flow Rate FiO2 02/15/18 16:07 97.2 68 18 116/51 (72) 96 02/15/18 09:12 Room Air I&O Intake and Output 02/15/18 07:00 Intake Total 1080 ml Balance 1080 ml Intake Oral 1080 ml Labs: Laboratory Tests Test 02/15/18 07:49 02/15/18 11:40 02/15/18 16:38 02/15/18 19:12 Glucose (Fingerstick) 208 mg/dL (70-99) H 175 mg/dL (70-99) H 123 mg/dL (70-99) H 222 mg/dL (70-99) H Current Medications: Meds: Current Medications Acetaminophen (Tylenol) 650 mg PRN Q6HRS PRN PO PAIN / TEMP; Start 02/11/18 at 17:30 Multi-Ingredient Ointment (Analgesic [place]) 1 jonathan PRN QID PRN TP MUSCLE PAIN; Start 02/11/18 at 17:30 Al Hydroxide/Mg Hydroxide (Mylanta Plus Xs) 15 ml PRN AFTMEALHC PRN PO DYSPEPSIA; Start 02/11/18 at 17:30 Magnesium Hydroxide (Milk Of Magnesia) 2,400 mg PRN QHS PRN PO CONSTIPATION; Start 02/11/18 at 17:30 Cyanocobalamin (Vitamin B-12) 1,000 mcg DAILY PO Last administered on 02/15/18at 07:28; Start 02/12/18 at 09:00 Diclofenac Sodium (Voltaren) 1 jonathan QIDPRN PRN TP PAIN Last administered on 02/14at 21:13; Start 02/11/18 at 17:45 Ferrous Sulfate (Feosol) 325 mg TIDWMEALS PO Last administered on 02/15/18at 16: 48; Start 02/12/18 at 08:00 Insulin Glargine (Lantus) 15 units QHS SQ Last administered on 02/14/18 20:05 ; Start 02/11/18 at 21:00 Naloxegol (Movantik) 25 mg DAILY PO Last administered on 02/15/18 07:28; Start 02/12/18 at 09:00 Nortriptyline HCl (Pamelor) 50 mg HS PO Last administered on 02/15/18 20:31; Start 02/11/18 at 21:00 Polyethylene Glycol (miraLAX) 17 gm HS PO Last administered on 02/15/18 20:34; Start 02/11/18 at 21:00 Pregabalin (Lyrica) 50 mg BID PO Last administered on 02/15/18 07:26; Start at 21:00 Aspirin (Aspirin Enteric Coated) 81 mg DAILYWBKFT PO Last administered on 07:30; Start 02/12/18 at 08:00 Buspirone HCl (Buspar) 5 mg BID PO Last administered on 02/12/18at 08:16; Start 02/11/18 at 21:00; Stop 02/12/18 at 18:31; Status DC Artificial Tears (Artificial Tears) 1 drop QID OU Last administered on 16:48; Start 02/11/18 at 21:00 Glucose (Insta-Glucose) 15 gm PRN Q15MIN PRN PO LOW BLOOD SUGAR; Start at 18:00 Docusate Sodium (Colace) 100 mg BID PO Last administered on 02/15/18 20:31; Start 02/11/18 at 21:00 Donepezil HCl (Aricept) 10 mg QHS PO Last administered on 02/15/18 20:34; Start 02/11/18 at 21:00 Duloxetine HCl (Cymbalta) 90 mg DAILY PO Last administered on 02/15/18 07:29; Start 02/12/18 at 09:00 Fluticasone Propionate (Flonase) 2 spray DAILY NS Last administered on 08:02; Start 02/12/18 at 09:00 Non-Formulary Medication (Glucagon,Human Recombinant (Glucagon Emergency Kit)) 1 mg PRN IM ; Start 02/11/18 at 17:45; Status UNV Artificial Tears (Artificial Tears) 1 drop PRN Q6HRS PRN OU DRY EYE; Start at 18:15 Acetaminophen/ Hydrocodone Bitart (Lortab 5/325) 1 tab PRN Q6HRS PRN PO PAIN Last administered on 02/15/18 07:27; Start 02/11/18 at 18:00 Insulin Human Lispro (HumaLOG) 5 units TIDWMEALS SQ Last administered on 16:50; Start 02/11/18 at 18:00 Loperamide HCl (Imodium) 2 mg PRN Q15MIN PRN PO DIARRHEA; Start 02/11/18 at 18: 00 Cetirizine HCl (ZyrTEC) 10 mg DAILY PO Last administered on 02/15/18 07:27; Start 02/12/18 at 09:00 Lorazepam (Ativan) 0.5 mg PRN Q6HRS PRN PO ANXIETY / AGITATION Last administered on 02/12/18 19:51; Start 02/11/18 at 18:00 Lorazepam (Ativan) 0.5 mg QHS PO Last administered on 02/14/18 19:47; Start at 21:00 Magnesium Hydroxide (Milk Of Magnesia) 2,400 mg PRN QHS PRN PO CONSTIPATION; Start 02/11/18 at 18:00 Metformin HCl (Glucophage) 1,000 mg BIDWMEALS PO Last administered on 02/15/18 16:48; Start 02/12/18 at 08:00 Multivitamins/ Calcium (Thera-M Plus) 1 tab DAILY PO Last administered on 07:30; Start 02/12/18 at 09:00 Non-Formulary Medication (Pectin (Throat Drops)) 1 lozenge PRN Q4HRS PRN MM sore throat; Start 02/11/18 at 17:45; Status UNV Potassium Chloride (Klor-Con) 10 meq DAILYWBKFT PO Last administered on 07:28; Start 02/12/18 at 08:00 Atorvastatin Calcium (Lipitor) 5 mg QHS PO Last administered on 02/15/18 20:34 ; Start 02/11/18 at 21:00 Propafenone HCl (Rythmol) 75 mg BID PO Last administered on 02/15/18 08:04; Start 02/11/18 at 21:00 Quetiapine Fumarate (SEROquel) 75 mg BID PO Last administered on 02/15/18at 20:32 ; Start 02/11/18 at 21:00 Sennosides (Senna) 17.2 mg DAILY PO Last administered on 02/15/18at 07:29; Start 02/12/18 at 09:00 Trazodone HCl (Desyrel) 50 mg QHS PO Last administered on 02/15/18at 20:33; Start 02/11/18 at 21:00 Insulin Human Lispro (HumaLOG) 0-9 UNITS QIDACHS SQ Last administered on at 12:06; Start 02/12/18 at 07:30 Dextrose 12.5 gm PRN Q15MIN PRN IV SEE COMMENTS; Start 02/11/18 at 18:00 Non-Formulary Medication (Insulin Aspart (Novolog)) 200-249=5u, 250-299=7u, 300- 349=10u,... QIDACHS SQ ; Start 02/11/18 at 21:00; Status UNV Memantine (Namenda) 10 mg DAILY PO Last administered on 02/15/18at 07:30; Start 02/12/18 at 09:00 Buspirone HCl (Buspar) 10 mg BID PO Last administered on 02/13/18at 20:08; Start 02/12/18 at 21:00; Stop 02/13/18 at 23:00; Status DC Buspirone HCl (Buspar) 10 mg TID PO Last administered on 02/15/18at 12:09; Start 02/14/18 at 09:00; Stop 02/15/18 at 18:52; Status DC Vitamin D (Vitamin D3) 50,000 unit WEEKLY PO Last administered on 02/13/18at 20: 15; Start 02/13/18 at 19:00 Divalproex Sodium (Depakote Sprinkles) 125 mg BID@0900,1300 PO Last administered on 02/15/18at 12:09; Start 02/15/18 at 09:00 Buspirone HCl (Buspar) 10 mg BID92 PO ; Start 02/16/18 at 09:00 Buspirone HCl (Buspar) 15 mg HS PO ; Start 02/15/18 at 21:00 Active Scripts Active Reported Namenda (Memantine Hcl) 10 Mg Tablet 10 Mg PO DAILY Zofran Odt (Ondansetron) 4 Mg Tab.rapdis 4 Mg PO PRN Q4HRS PRN 30 Days Voltaren (Diclofenac Sodium) 100 Gm Gel..gram. 1 Gm TP QIDPRN PRN Vitamin B-12 (Cyanocobalamin (Vitamin B-12)) 1,000 Mcg Tablet 1,000 Mcg PO DAILY Trazodone Hcl 50 Mg Tablet 50 Mg PO HS Throat Drops (Pectin) 2.8 Mg Lozenge 1 Lozenge MM PRN Q4HRS PRN Seroquel (Quetiapine Fumarate) 25 Mg Tablet 75 Mg PO BID Senna (Sennosides) 8.6 Mg Tablet 17.2 Mg PO DAILY Rythmol Sr (Propafenone Hcl) 225 Mg Cap.er.12h 75 Mg PO BID Pravastatin Sodium 10 Mg Tablet 10 Mg PO HS Potassium Chloride 10 Meq Tablet.er 10 Meq PO DAILY Novolog (Insulin Aspart) 100 Unit/1 Ml Cartridge 5 Unit SQ TIDWMEALS Novolog (Insulin Aspart) 100 Unit/1 Ml Cartridge 1-20 Unit SQ QIDACHS Nortriptyline Hcl 25 Mg Capsule 50 Mg PO HS Natural Balance Tears Eye Drop (Dextran 70/Hypromellose) 15 Ml Drops 1 Ml OP [id number] Multiple Vitamin (Multivitamin With Minerals) 1 Each Tablet 1 Each PO DAILY Movantik (Naloxegol Oxalate) 25 Mg Tablet 25 Mg PO DAILY Miralax (Polyethylene Glycol 3350) 119 Gm Powder 17 Gm PO HS Milk Of Magnesia (Magnesium Hydroxide) 2,400 Mg/10 Ml Oral.susp 2,400 Mg PO PRN QHS PRN Metformin Hcl 1,000 Mg Tablet 1,000 Mg PO BID Lyrica (Pregabalin) 50 Mg Capsule 50 Mg PO BID Lubricant Eye Drops (Glycerin/Propylene Glycol) 15 Ml Drops 1 Ml OP PRN Q6HRS PRN Lorazepam 0.5 Mg Tablet 0.5 Mg PO PRN Q6HRS PRN Loratadine 10 Mg Tablet 10 Mg PO DAILY Lantus Solostar (Insulin Glargine,Hum.rec.anlog) 100 Unit/1 Ml Insuln.pen 15 Unit SQ QHS Imodium A-D (Loperamide HCl) 2 Mg Capsule 2 Mg PO PRN Q15MIN PRN Hydrocodone-Apap 5-325 (Hydrocodone Bit/Acetaminophen) 1 Each Tablet 1 Tab PO QID PRN Glucose Gel (Dextrose) 38 Gm Gel..gram. 1 Packet PO PRN PRN Glucagon Emergency Kit (Glucagon,Human Recombinant) 1 Mg Kit 1 Mg IM PRN Flonase Allergy Relief (Fluticasone Propionate) 9.9 Ml [place].susp 2 Sprays NS DAILY Feosol (Ferrous Sulfate) 325 Mg Tablet 325 Mg PO PRN TID PRN Cymbalta (Duloxetine Hcl) 30 Mg Capsule.dr 90 Mg PO DAILY Colace (Docusate Sodium) 100 Mg Capsule 100 Mg PO BID Buspirone Hcl 5 Mg Tablet 5 Mg PO BID Ativan (Lorazepam) 0.5 Mg Tablet 0.5 Mg PO HS Aspirin 81 Mg Tab.chew 81 Mg PO DAILY Aricept (Donepezil Hcl) 10 Mg Tablet 10 Mg PO HS [acetasol 2-1%] 3 Drop AU I have reviewed the current psychotropics carefully including drug interactions. Risk benefit ratio favors no change other than as noted in my dictated progress note. Diagnosis: Problems: (1) Major depressive disorder (2) Anxiety disorder (3) Impulse control disorder (4) Mild cognitive impairment ANDRES WILLIAMSON MD Feb 15, 2018 20:43
[2018-02-15] MEDS: INSULIN GLARGINE 300 UNITS/3 ML INSULN.PEN. SQ SCH (20:49)
[2018-02-15] MEDS: DICLOFENAC SODIUM 1% TOPICAL GEL 100GM TUBE. TP PRN (20:50)
--- NOTE | 2018-02-16 02:04 | PN ---
DATE: 02/14/2018 PSYCHIATRIC PROGRESS NOTE This is a late entry for 02/14/2018, covers elements not covered in my initial note of 02/14/2018. SUBJECTIVE: The patient was staffed at a treatment team meeting with the entire team the morning of 02/14/2018. Discussed the patient's history, diagnosis, placement options, treatment, discharge plans. I met with him individually in the evening. The patient slept 5 hours, quite calm in the morning, then agitated with some mood lability. REVIEW OF SYSTEMS: No CV, , pulmonary, eye, ENT system symptoms on review. MENTAL STATUS EXAM: Oriented to himself and situation. Speech has some latency, coherent. Abstraction fair, computation impaired, language function intact, attention span short. Mood and affect still remains anxious, labile at times. LABORATORY DATA: Reviewed. IMPRESSION: Unchanged from initial note. PLAN: The patient was somewhat agitated later in the day, calm in the morning. We will start Depakote Sprinkles 125 mg at 9 a.m., 1:00 p.m. Check CBC, CMP, valproic acid level in 3 days. Rest psychotropics unchanged from my initial note. MAN Jorge LMaribell WILLIAMSON MD DR: NISHI/torie JOB#: [id number] / [id number]
--- NOTE | 2018-02-16 02:05 | PN ---
DATE: 02/13/2018 This is a late entry 02/13/2018 covers the elements not covered in my initial note 02/13/2018. SUBJECTIVE: I met with the patient in the evening. The patient slept 5-3/4 hours previous evening. Previous night he was exit seeking, compliant in the morning, later wanting repeatedly to know when he was leaving, quite agitated at times, agitated at dinnertime, forgetful. REVIEW OF SYSTEMS: No CV, , pulmonary, eye, ENT system symptoms on review. MENTAL STATUS EXAM: Oriented to himself and situation. Speech has some latency, coherent. Abstraction fair, computation impaired, language function intact, attention span short. Mood and affect remain somewhat anxious, labile, but improved. LABORATORY DATA: Reviewed. IMPRESSION: Major neurocognitive disorder, Alzheimer, vascular with depression, major depressive disorder, recurrent. Rest unchanged. PLAN: Continue psychotropics mentioned in my initial note. Increase BuSpar from 10 mg b.i.d. to 10 mg t.i.d. starting 02/15/2018 for his anxiety. Rest unchanged. MAN Milton WILLIAMSON MD DR: NISHI/torie JOB#: [id number] / [id number]
[2018-02-16 06:18] VITALS: BP 118/57
[2018-02-16] MEDS: metFORMIN 500 MG TABLET PO SCH ×2 (07:42→18:09)
[2018-02-16] MEDS: MULTIVITAMIN with MINERAL TABLET. PO SCH (07:42)
[2018-02-16] MEDS: POTASSIUM CHLORIDE 10 MEQ TABLET.ER. PO SCH (07:42)
[2018-02-16] MEDS: DIVALPROEX 125 MG CAP.SPRINK PO SCH ×2 (07:42→12:50)
[2018-02-16] MEDS: CYANOCOBALAMIN (VITAMIN B-12) 1,000 MCG TABLET. PO SCH (07:42)
[2018-02-16] MEDS: SENNOSIDES 8.6 MG TABLET PO SCH (07:42)
[2018-02-16] MEDS: FERROUS SULFATE 325 MG TABLET. PO SCH ×3 (07:42→18:09)
[2018-02-16] MEDS: ASPIRIN ENTERIC COATED 81 MG TABLET.DR. PO SCH (07:43)
[2018-02-16] MEDS: MEMANTINE 10 MG TABLET. PO SCH (07:43)
[2018-02-16] MEDS: CETIRIZINE HCL 10 MG TABLET PO SCH (07:43)
[2018-02-16] MEDS: DOCUSATE SODIUM 100 MG CAPSULE PO SCH ×2 (07:43→19:41)
[2018-02-16] MEDS: PREGABALIN 50 MG CAPSULE PO SCH ×2 (07:43→19:43)
[2018-02-16] MEDS: DULoxetine HCL 30 MG CAPSULE.DR PO SCH (07:43)
[2018-02-16] MEDS: QUEtiapine 50 MG TABLET. PO SCH ×2 (07:44→19:41)
[2018-02-16] MEDS: POLYVINYL ALCOHOL 1.4% OPHTH SOLUTION 15ML BOTTLE. OU SCH ×4 (07:46→19:45)
[2018-02-16] MEDS: PROPAFENONE 150 MG TABLET. PO SCH ×2 (07:48→19:46)
[2018-02-16] MEDS: NALOXEGOL OXALATE 25 MG TABLET. PO SCH (07:48)
[2018-02-16] MEDS: busPIRone 10 MG TABLET. PO SCH ×2 (07:50→12:51)
[2018-02-16] MEDS: FLUTICASONE 50MCG/NASAL SPRAY 16GM BOTTLE. NS SCH (07:50)
[2018-02-16] MEDS: INSULIN LISPRO 300 UNITS/3 ML INSULN.PEN. SQ SCH ×7 (08:08→21:00)
[2018-02-16] MEDS: DICLOFENAC SODIUM 1% TOPICAL GEL 100GM TUBE. TP PRN ×2 (15:00→19:39)
[2018-02-16 16:40] VITALS: BP 142/63
[2018-02-16] MEDS: HYDROcodone/APAP 5/325MG 1 TAB TABLET PO PRN (18:09)
[2018-02-16] MEDS: DONEPEZIL HCL 10 MG TABLET PO SCH (19:42)
[2018-02-16] MEDS: LORazepam 0.5 MG TABLET PO SCH (19:43)
[2018-02-16] MEDS: NORTRIPTYLINE 25 MG CAPSULE PO SCH (19:43)
[2018-02-16] MEDS: ATORVASTATIN CALCIUM 10 MG TABLET. PO SCH (19:43)
[2018-02-16] MEDS: busPIRone 15 MG TABLET. PO SCH (19:44)
[2018-02-16] MEDS: traZODone 50 MG TABLET. PO SCH (19:44)
[2018-02-16] MEDS: POLYETHYLENE GLYCOL 3350 17 GM PACKET. PO SCH (19:45)
[2018-02-16] MEDS: INSULIN GLARGINE 300 UNITS/3 ML INSULN.PEN. SQ SCH (19:48)
--- NOTE | 2018-02-16 22:08 | PDOC ---
Exam Note: Maxx Note: Please also refer to the separate dictated note~for this date of service dictated separately.~Patient seen individually. Discussed the patient with Nursing staff reviewed the chart.~Reviewed interim history and current functioning. Reviewed vital signs,~Labs/ Radiology~and current medications noted below. Continue current treatment with the changes noted in the dictated addendum note Assessment: Vital Signs: Vital Signs Date Time Temp Pulse Resp B/P (MAP) Pulse Ox O2 Delivery O2 Flow Rate FiO2 02/16/18 19:46 77 142/63 02/16/18 16:40 97.9 19 98 02/15/18 09:12 Room Air I&O Intake and Output 02/16/18 07:00 Intake Total 1200 ml Balance 1200 ml Intake Oral 1200 ml Labs: Laboratory Tests Test 02/16/18 07:56 02/16/18 11:57 02/16/18 16:58 Glucose (Fingerstick) 158 mg/dL (70-99) H 239 mg/dL (70-99) H 135 mg/dL (70-99) H Current Medications: Meds: Current Medications Acetaminophen (Tylenol) 650 mg PRN Q6HRS PRN PO PAIN / TEMP; Start 02/11/18 at 17:30 Multi-Ingredient Ointment (Analgesic [place]) 1 jonathan PRN QID PRN TP MUSCLE PAIN; Start 02/11/18 at 17:30 Al Hydroxide/Mg Hydroxide (Mylanta Plus Xs) 15 ml PRN AFTMEALHC PRN PO DYSPEPSIA; Start 02/11/18 at 17:30 Magnesium Hydroxide (Milk Of Magnesia) 2,400 mg PRN QHS PRN PO CONSTIPATION; Start 02/11/18 at 17:30 Cyanocobalamin (Vitamin B-12) 1,000 mcg DAILY PO Last administered on 02/16/18at 07:42; Start 02/12/18 at 09:00 Diclofenac Sodium (Voltaren) 1 jonathan QIDPRN PRN TP PAIN Last administered on at 19:39; Start 02/11/18 at 17:45 Ferrous Sulfate (Feosol) 325 mg TIDWMEALS PO Last administered on 02/16/18at 18: 09; Start 02/12/18 at 08:00 Insulin Glargine (Lantus) 15 units QHS SQ Last administered on 02/16/18 19:48; Start 02/11/18 at 21:00 Naloxegol (Movantik) 25 mg DAILY PO Last administered on 02/16/18 07:48; Start 02/12/18 at 09:00 Nortriptyline HCl (Pamelor) 50 mg HS PO Last administered on 02/16/18 19:43; Start 02/11/18 at 21:00 Polyethylene Glycol (miraLAX) 17 gm HS PO Last administered on 02/16/18 19:45; Start 02/11/18 at 21:00 Pregabalin (Lyrica) 50 mg BID PO Last administered on 02/16/18 19:43; Start at 21:00 Aspirin (Aspirin Enteric Coated) 81 mg DAILYWBKFT PO Last administered on 07:43; Start 02/12/18 at 08:00 Buspirone HCl (Buspar) 5 mg BID PO Last administered on 02/12/18 08:16; Start 02/11/18 at 21:00; Stop 02/12/18 at 18:31; Status DC Artificial Tears (Artificial Tears) 1 drop QID OU Last administered on 19:45; Start 02/11/18 at 21:00 Glucose (Insta-Glucose) 15 gm PRN Q15MIN PRN PO LOW BLOOD SUGAR; Start at 18:00 Docusate Sodium (Colace) 100 mg BID PO Last administered on 02/16/18 19:41; Start 02/11/18 at 21:00 Donepezil HCl (Aricept) 10 mg QHS PO Last administered on 02/16/18 19:42; Start 02/11/18 at 21:00 Duloxetine HCl (Cymbalta) 90 mg DAILY PO Last administered on 02/16/18 07:43; Start 02/12/18 at 09:00 Fluticasone Propionate (Flonase) 2 spray DAILY NS Last administered on 07:50; Start 02/12/18 at 09:00 Non-Formulary Medication (Glucagon,Human Recombinant (Glucagon Emergency Kit)) 1 mg PRN IM ; Start 02/11/18 at 17:45; Status UNV Artificial Tears (Artificial Tears) 1 drop PRN Q6HRS PRN OU DRY EYE; Start at 18:15 Acetaminophen/ Hydrocodone Bitart (Lortab 5/325) 1 tab PRN Q6HRS PRN PO PAIN Last administered on 02/16/18 18:09; Start 02/11/18 at 18:00 Insulin Human Lispro (HumaLOG) 5 units TIDWMEALS SQ Last administered on 17:20; Start 02/11/18 at 18:00 Loperamide HCl (Imodium) 2 mg PRN Q15MIN PRN PO DIARRHEA; Start 02/11/18 at 18: 00 Cetirizine HCl (ZyrTEC) 10 mg DAILY PO Last administered on 02/16/18 07:43; Start 02/12/18 at 09:00 Lorazepam (Ativan) 0.5 mg PRN Q6HRS PRN PO ANXIETY / AGITATION Last administered on 02/12/18 19:51; Start 02/11/18 at 18:00 Lorazepam (Ativan) 0.5 mg QHS PO Last administered on 02/16/18 19:43; Start at 21:00 Magnesium Hydroxide (Milk Of Magnesia) 2,400 mg PRN QHS PRN PO CONSTIPATION; Start 02/11/18 at 18:00 Metformin HCl (Glucophage) 1,000 mg BIDWMEALS PO Last administered on 02/16/18 18:09; Start 02/12/18 at 08:00 Multivitamins/ Calcium (Thera-M Plus) 1 tab DAILY PO Last administered on 07:42; Start 02/12/18 at 09:00 Non-Formulary Medication (Pectin (Throat Drops)) 1 lozenge PRN Q4HRS PRN MM sore throat; Start 02/11/18 at 17:45; Status UNV Potassium Chloride (Klor-Con) 10 meq DAILYWBKFT PO Last administered on 07:42; Start 02/12/18 at 08:00 Atorvastatin Calcium (Lipitor) 5 mg QHS PO Last administered on 02/16/18 19:43 ; Start 02/11/18 at 21:00 Propafenone HCl (Rythmol) 75 mg BID PO Last administered on 02/16/18 19:46; Start 02/11/18 at 21:00 Quetiapine Fumarate (SEROquel) 75 mg BID PO Last administered on 02/16/18 19:41 ; Start 02/11/18 at 21:00 Sennosides (Senna) 17.2 mg DAILY PO Last administered on 02/16/18 07:42; Start 02/12/18 at 09:00 Trazodone HCl (Desyrel) 50 mg QHS PO Last administered on 02/16/18 19:44; Start 02/11/18 at 21:00 Insulin Human Lispro (HumaLOG) 0-9 UNITS QIDACHS SQ Last administered on 13:01; Start 02/12/18 at 07:30 Dextrose 12.5 gm PRN Q15MIN PRN IV SEE COMMENTS; Start 02/11/18 at 18:00 Non-Formulary Medication (Insulin Aspart (Novolog)) 200-249=5u, 250-299=7u, 300- 349=10u,... QIDACHS SQ ; Start 02/11/18 at 21:00; Status UNV Memantine (Namenda) 10 mg DAILY PO Last administered on 02/16/18at 07:43; Start 02/12/18 at 09:00 Buspirone HCl (Buspar) 10 mg BID PO Last administered on 02/13/18at 20:08; Start 02/12/18 at 21:00; Stop 02/13/18 at 23:00; Status DC Buspirone HCl (Buspar) 10 mg TID PO Last administered on 02/15/18at 12:09; Start 02/14/18 at 09:00; Stop 02/15/18 at 18:52; Status DC Vitamin D (Vitamin D3) 50,000 unit WEEKLY PO Last administered on 02/13/18 20: 15; Start 02/13/18 at 19:00 Divalproex Sodium (Depakote Sprinkles) 125 mg BID@0900,1300 PO Last administered on 02/16/18 12:50; Start 02/15/18 at 09:00 Buspirone HCl (Buspar) 10 mg BID92 PO Last administered on 02/16/18 12:51; Start 02/16/18 at 09:00 Buspirone HCl (Buspar) 15 mg HS PO Last administered on 02/16/18at 19:44; Start 02/15/18 at 21:00 Active Scripts Active Reported Namenda (Memantine Hcl) 10 Mg Tablet 10 Mg PO DAILY Zofran Odt (Ondansetron) 4 Mg Tab.rapdis 4 Mg PO PRN Q4HRS PRN 30 Days Voltaren (Diclofenac Sodium) 100 Gm Gel..gram. 1 Gm TP QIDPRN PRN Vitamin B-12 (Cyanocobalamin (Vitamin B-12)) 1,000 Mcg Tablet 1,000 Mcg PO DAILY Trazodone Hcl 50 Mg Tablet 50 Mg PO HS Throat Drops (Pectin) 2.8 Mg Lozenge 1 Lozenge MM PRN Q4HRS PRN Seroquel (Quetiapine Fumarate) 25 Mg Tablet 75 Mg PO BID Senna (Sennosides) 8.6 Mg Tablet 17.2 Mg PO DAILY Rythmol Sr (Propafenone Hcl) 225 Mg Cap.er.12h 75 Mg PO BID Pravastatin Sodium 10 Mg Tablet 10 Mg PO HS Potassium Chloride 10 Meq Tablet.er 10 Meq PO DAILY Novolog (Insulin Aspart) 100 Unit/1 Ml Cartridge 5 Unit SQ TIDWMEALS Novolog (Insulin Aspart) 100 Unit/1 Ml Cartridge 1-20 Unit SQ QIDACHS Nortriptyline Hcl 25 Mg Capsule 50 Mg PO HS Natural Balance Tears Eye Drop (Dextran 70/Hypromellose) 15 Ml Drops 1 Ml OP [id number] Multiple Vitamin (Multivitamin With Minerals) 1 Each Tablet 1 Each PO DAILY Movantik (Naloxegol Oxalate) 25 Mg Tablet 25 Mg PO DAILY Miralax (Polyethylene Glycol 3350) 119 Gm Powder 17 Gm PO HS Milk Of Magnesia (Magnesium Hydroxide) 2,400 Mg/10 Ml Oral.susp 2,400 Mg PO PRN QHS PRN Metformin Hcl 1,000 Mg Tablet 1,000 Mg PO BID Lyrica (Pregabalin) 50 Mg Capsule 50 Mg PO BID Lubricant Eye Drops (Glycerin/Propylene Glycol) 15 Ml Drops 1 Ml OP PRN Q6HRS PRN Lorazepam 0.5 Mg Tablet 0.5 Mg PO PRN Q6HRS PRN Loratadine 10 Mg Tablet 10 Mg PO DAILY Lantus Solostar (Insulin Glargine,Hum.rec.anlog) 100 Unit/1 Ml Insuln.pen 15 Unit SQ QHS Imodium A-D (Loperamide HCl) 2 Mg Capsule 2 Mg PO PRN Q15MIN PRN Hydrocodone-Apap 5-325 (Hydrocodone Bit/Acetaminophen) 1 Each Tablet 1 Tab PO QID PRN Glucose Gel (Dextrose) 38 Gm Gel..gram. 1 Packet PO PRN PRN Glucagon Emergency Kit (Glucagon,Human Recombinant) 1 Mg Kit 1 Mg IM PRN Flonase Allergy Relief (Fluticasone Propionate) 9.9 Ml [place].susp 2 Sprays NS DAILY Feosol (Ferrous Sulfate) 325 Mg Tablet 325 Mg PO PRN TID PRN Cymbalta (Duloxetine Hcl) 30 Mg Capsule.dr 90 Mg PO DAILY Colace (Docusate Sodium) 100 Mg Capsule 100 Mg PO BID Buspirone Hcl 5 Mg Tablet 5 Mg PO BID Ativan (Lorazepam) 0.5 Mg Tablet 0.5 Mg PO HS Aspirin 81 Mg Tab.chew 81 Mg PO DAILY Aricept (Donepezil Hcl) 10 Mg Tablet 10 Mg PO HS [acetasol 2-1%] 3 Drop AU I have reviewed the current psychotropics carefully including drug interactions. Risk benefit ratio favors no change other than as noted in my dictated progress note. Diagnosis: Problems: (1) Major depressive disorder (2) Anxiety disorder (3) Impulse control disorder (4) Mild cognitive impairment ANDRES WILLIAMSON MD Feb 16, 2018 22:08
[2018-02-17 05:54] VITALS: BP 142/73
[2018-02-17 07:43] LABS: BASO % 1 % (0-3); EOS # 0.2 x10^3/uL (0.0-0.7); EOS % 5 % (0-3); HEMATOCRIT 35.9 % (39.0-53.0); HEMOGLOBIN 12.1 g/dL (13.0-17.5); LYMPH # 1.3 x10^3/uL (1.0-4.8); LYMPH % 31 % (24-48); MEAN CORPUSCULAR HEMOGLOBIN 30 pg (25-35); MEAN CORPUSCULAR HGB CONC 34 g/dL (31-37); MEAN CORPUSCULAR VOLUME 88 fL (79-100); MONO # 0.6 x10^3/uL (0.0-1.1); MONO % 13 % (0-9); NEUT # 2.1 x10^3uL (1.8-7.7); NEUT % 50 % (31-73); PLATELET COUNT 165 x10^3/uL (140-400); RED BLOOD COUNT 4.11 x10^6/uL (4.30-5.70); RED CELL DISTRIBUTION WIDTH 12.3 % (11.5-14.5); WHITE BLOOD COUNT 4.3 x10^3/uL (4.0-11.0)
[2018-02-17] MEDS: CETIRIZINE HCL 10 MG TABLET PO SCH (07:47)
[2018-02-17] MEDS: metFORMIN 500 MG TABLET PO SCH ×2 (07:47→18:17)
[2018-02-17] MEDS: ASPIRIN ENTERIC COATED 81 MG TABLET.DR. PO SCH (07:47)
[2018-02-17] MEDS: POTASSIUM CHLORIDE 10 MEQ TABLET.ER. PO SCH (07:47)
[2018-02-17] MEDS: busPIRone 10 MG TABLET. PO SCH ×2 (07:47→13:14)
[2018-02-17] MEDS: MEMANTINE 10 MG TABLET. PO SCH (07:47)
[2018-02-17] MEDS: FERROUS SULFATE 325 MG TABLET. PO SCH ×3 (07:47→18:17)
[2018-02-17] MEDS: CYANOCOBALAMIN (VITAMIN B-12) 1,000 MCG TABLET. PO SCH (07:47)
[2018-02-17] MEDS: DIVALPROEX 125 MG CAP.SPRINK PO SCH ×2 (07:47→13:14)
[2018-02-17] MEDS: MULTIVITAMIN with MINERAL TABLET. PO SCH (07:48)
[2018-02-17] MEDS: QUEtiapine 50 MG TABLET. PO SCH ×2 (07:48→19:20)
[2018-02-17] MEDS: DULoxetine HCL 30 MG CAPSULE.DR PO SCH (07:48)
[2018-02-17] MEDS: DOCUSATE SODIUM 100 MG CAPSULE PO SCH ×2 (07:48→19:21)
[2018-02-17] MEDS: SENNOSIDES 8.6 MG TABLET PO SCH (07:48)
[2018-02-17] MEDS: NALOXEGOL OXALATE 25 MG TABLET. PO SCH (07:49)
[2018-02-17] MEDS: PROPAFENONE 150 MG TABLET. PO SCH ×2 (07:49→19:22)
[2018-02-17] MEDS: POLYVINYL ALCOHOL 1.4% OPHTH SOLUTION 15ML BOTTLE. OU SCH ×4 (07:50→19:36)
[2018-02-17] MEDS: FLUTICASONE 50MCG/NASAL SPRAY 16GM BOTTLE. NS SCH (07:50)
[2018-02-17] MEDS: INSULIN LISPRO 300 UNITS/3 ML INSULN.PEN. SQ SCH ×7 (07:51→19:36)
[2018-02-17] MEDS: PREGABALIN 50 MG CAPSULE PO SCH ×2 (07:53→19:20)
[2018-02-17 07:55] LABS: ALBUMIN 3.6 g/dL (3.4-5.0); ALBUMIN/GLOBULIN RATIO 1.1 (1.0-1.7); CALCIUM 8.8 mg/dL (8.5-10.1); GFR 72.5; POTASSIUM 4.3 mmol/L (3.5-5.1); TOTAL BILIRUBIN 0.4 mg/dL (0.2-1.0); TOTAL PROTEIN 6.9 g/dL (6.4-8.2)
[2018-02-17 07:58] LABS: VAL ACID 11 mcg/mL (50-100)
[2018-02-17] MEDS: DICLOFENAC SODIUM 1% TOPICAL GEL 100GM TUBE. TP PRN (11:21)
[2018-02-17] MEDS: HYDROcodone/APAP 5/325MG 1 TAB TABLET PO PRN ×2 (13:17→18:06)
[2018-02-17 16:31] VITALS: BP 106/61
[2018-02-17] MEDS: POLYETHYLENE GLYCOL 3350 17 GM PACKET. PO SCH (19:19)
[2018-02-17] MEDS: traZODone 50 MG TABLET. PO SCH (19:20)
[2018-02-17] MEDS: NORTRIPTYLINE 25 MG CAPSULE PO SCH (19:21)
[2018-02-17] MEDS: LORazepam 0.5 MG TABLET PO SCH (19:21)
[2018-02-17] MEDS: DONEPEZIL HCL 10 MG TABLET PO SCH (19:21)
[2018-02-17] MEDS: busPIRone 15 MG TABLET. PO SCH (19:21)
[2018-02-17] MEDS: ATORVASTATIN CALCIUM 10 MG TABLET. PO SCH (19:21)
[2018-02-17] MEDS: INSULIN GLARGINE 300 UNITS/3 ML INSULN.PEN. SQ SCH (19:34)
--- NOTE | 2018-02-17 20:00 | PDOC ---
Exam Note: Maxx Note: Please also refer to the separate dictated note~for this date of service dictated separately.~Patient seen individually. Discussed the patient with Nursing staff reviewed the chart.~Reviewed interim history and current functioning. Reviewed vital signs,~Labs/ Radiology~and current medications noted below. Continue current treatment with the changes noted in the dictated addendum note Assessment: Vital Signs: Vital Signs Date Time Temp Pulse Resp B/P (MAP) Pulse Ox O2 Delivery O2 Flow Rate FiO2 02/17/18 19:22 69 106/61 02/17/18 16:31 97.6 18 96 02/15/18 09:12 Room Air I&O Intake and Output 02/17/18 07:00 Intake Total 840 ml Balance 840 ml Intake Oral 840 ml Labs: Laboratory Tests Test 02/17/18 07:27 02/17/18 07:38 02/17/18 11:52 02/17/18 16:58 White Blood Count 4.3 x10^3/uL (4.0-11.0) Red Blood Count 4.11 x10^6/uL (4.30-5.70) L Hemoglobin 12.1 g/dL (13.0-17.5) L Hematocrit 35.9 % (39.0-53.0) L Mean Corpuscular Volume 88 fL (79-100) Mean Corpuscular Hemoglobin 30 pg (25-35) Mean Corpuscular Hemoglobin Concent 34 g/dL (31-37) Red Cell Distribution Width 12.3 % (11.5-14.5) Platelet Count 165 x10^3/uL (140-400) Neutrophils (%) (Auto) 50 % (31-73) Lymphocytes (%) (Auto) 31 % (24-48) Monocytes (%) (Auto) 13 % (0-9) H Eosinophils (%) (Auto) 5 % (0-3) H Basophils (%) (Auto) 1 % (0-3) Neutrophils # (Auto) 2.1 x10^3uL (1.8-7.7) Lymphocytes # (Auto) 1.3 x10^3/uL (1.0-4.8) Monocytes # (Auto) 0.6 x10^3/uL (0.0-1.1) Eosinophils # (Auto) 0.2 x10^3/uL (0.0-0.7) Basophils # (Auto) 0.0 x10^3/uL (0.0-0.2) Sodium Level 141 mmol/L (136-145) Potassium Level 4.3 mmol/L (3.5-5.1) Chloride Level 103 mmol/L (98-107) Carbon Dioxide Level 32 mmol/L (21-32) Anion Gap 6 (6-14) Blood Urea Nitrogen 16 mg/dL (8-26) Creatinine 1.0 mg/dL (0.7-1.3) Estimated GFR (Cockcroft-Gault) 72.5 BUN/Creatinine Ratio 16 (6-20) Glucose Level 170 mg/dL (70-99) H Calcium Level 8.8 mg/dL (8.5-10.1) Total Bilirubin 0.4 mg/dL (0.2-1.0) Aspartate Amino Transferase (AST) 12 U/L (15-37) L Alanine Aminotransferase (ALT) 17 U/L (16-63) Alkaline Phosphatase 48 U/L (46-116) Total Protein 6.9 g/dL (6.4-8.2) Albumin 3.6 g/dL (3.4-5.0) Albumin/Globulin Ratio 1.1 (1.0-1.7) Valproic Acid Level 11 mcg/mL (50-100) L Valproic Acid Last Dose Date 02/16/18 Valproic Acid Last Dose Time 1300 Glucose (Fingerstick) 164 mg/dL (70-99) H 144 mg/dL (70-99) H 157 mg/dL (70-99) H Current Medications: Meds: Current Medications Acetaminophen (Tylenol) 650 mg PRN Q6HRS PRN PO PAIN / TEMP; Start 02/11/18 at 17:30 Multi-Ingredient Ointment (Analgesic [place]) 1 jonathan PRN QID PRN TP MUSCLE PAIN; Start 02/11/18 at 17:30 Al Hydroxide/Mg Hydroxide (Mylanta Plus Xs) 15 ml PRN AFTMEALHC PRN PO DYSPEPSIA; Start 02/11/18 at 17:30 Magnesium Hydroxide (Milk Of Magnesia) 2,400 mg PRN QHS PRN PO CONSTIPATION; Start 02/11/18 at 17:30 Cyanocobalamin (Vitamin B-12) 1,000 mcg DAILY PO Last administered on 02/17/18 07:47; Start 02/12/18 at 09:00 Diclofenac Sodium (Voltaren) 1 jonathan QIDPRN PRN TP PAIN Last administered on 11:21; Start 02/11/18 at 17:45 Ferrous Sulfate (Feosol) 325 mg TIDWMEALS PO Last administered on 02/17/18 18: 17; Start 02/12/18 at 08:00 Insulin Glargine (Lantus) 15 units QHS SQ Last administered on 02/17/18 19:34; Start 02/11/18 at 21:00 Naloxegol (Movantik) 25 mg DAILY PO Last administered on 02/17/18 07:49; Start 02/12/18 at 09:00 Nortriptyline HCl (Pamelor) 50 mg HS PO Last administered on 02/17/18 19:21; Start 02/11/18 at 21:00 Polyethylene Glycol (miraLAX) 17 gm HS PO Last administered on 02/17/18 19:19; Start 02/11/18 at 21:00 Pregabalin (Lyrica) 50 mg BID PO Last administered on 02/17/18 19:20; Start at 21:00 Aspirin (Aspirin Enteric Coated) 81 mg DAILYWBKFT PO Last administered on 07:47; Start 02/12/18 at 08:00 Buspirone HCl (Buspar) 5 mg BID PO Last administered on 02/12/18 08:16; Start 02/11/18 at 21:00; Stop 02/12/18 at 18:31; Status DC Artificial Tears (Artificial Tears) 1 drop QID OU Last administered on 19:36; Start 02/11/18 at 21:00 Glucose (Insta-Glucose) 15 gm PRN Q15MIN PRN PO LOW BLOOD SUGAR; Start at 18:00 Docusate Sodium (Colace) 100 mg BID PO Last administered on 02/17/18 19:21; Start 02/11/18 at 21:00 Donepezil HCl (Aricept) 10 mg QHS PO Last administered on 02/17/18 19:21; Start 02/11/18 at 21:00 Duloxetine HCl (Cymbalta) 90 mg DAILY PO Last administered on 02/17/18 07:48; Start 02/12/18 at 09:00 Fluticasone Propionate (Flonase) 2 spray DAILY NS Last administered on 07:50; Start 02/12/18 at 09:00 Non-Formulary Medication (Glucagon,Human Recombinant (Glucagon Emergency Kit)) 1 mg PRN IM ; Start 02/11/18 at 17:45; Status UNV Artificial Tears (Artificial Tears) 1 drop PRN Q6HRS PRN OU DRY EYE; Start at 18:15 Acetaminophen/ Hydrocodone Bitart (Lortab 5/325) 1 tab PRN Q6HRS PRN PO PAIN Last administered on 02/17/18 18:06; Start 02/11/18 at 18:00 Insulin Human Lispro (HumaLOG) 5 units TIDWMEALS SQ Last administered on 18:11; Start 02/11/18 at 18:00 Loperamide HCl (Imodium) 2 mg PRN Q15MIN PRN PO DIARRHEA; Start 02/11/18 at 18: 00 Cetirizine HCl (ZyrTEC) 10 mg DAILY PO Last administered on 02/17/18 07:47; Start 02/12/18 at 09:00 Lorazepam (Ativan) 0.5 mg PRN Q6HRS PRN PO ANXIETY / AGITATION Last administered on 02/12/18 19:51; Start 02/11/18 at 18:00 Lorazepam (Ativan) 0.5 mg QHS PO Last administered on 02/17/18 19:21; Start at 21:00 Magnesium Hydroxide (Milk Of Magnesia) 2,400 mg PRN QHS PRN PO CONSTIPATION; Start 02/11/18 at 18:00 Metformin HCl (Glucophage) 1,000 mg BIDWMEALS PO Last administered on 02/17/18 18:17; Start 02/12/18 at 08:00 Multivitamins/ Calcium (Thera-M Plus) 1 tab DAILY PO Last administered on 07:48; Start 02/12/18 at 09:00 Non-Formulary Medication (Pectin (Throat Drops)) 1 lozenge PRN Q4HRS PRN MM sore throat; Start 02/11/18 at 17:45; Status UNV Potassium Chloride (Klor-Con) 10 meq DAILYWBKFT PO Last administered on 07:47; Start 02/12/18 at 08:00 Atorvastatin Calcium (Lipitor) 5 mg QHS PO Last administered on 02/17/18 19:21 ; Start 02/11/18 at 21:00 Propafenone HCl (Rythmol) 75 mg BID PO Last administered on 02/17/18 19:22; Start 02/11/18 at 21:00 Quetiapine Fumarate (SEROquel) 75 mg BID PO Last administered on 02/17/18 19:20 ; Start 02/11/18 at 21:00 Sennosides (Senna) 17.2 mg DAILY PO Last administered on 02/17/18 07:48; Start 02/12/18 at 09:00 Trazodone HCl (Desyrel) 50 mg QHS PO Last administered on 02/17/18 19:20; Start 02/11/18 at 21:00 Insulin Human Lispro (HumaLOG) 0-9 UNITS QIDACHS SQ Last administered on 18:09; Start 02/12/18 at 07:30 Dextrose 12.5 gm PRN Q15MIN PRN IV SEE COMMENTS; Start 02/11/18 at 18:00 Non-Formulary Medication (Insulin Aspart (Novolog)) 200-249=5u, 250-299=7u, 300- 349=10u,... QIDACHS SQ ; Start 02/11/18 at 21:00; Status UNV Memantine (Namenda) 10 mg DAILY PO Last administered on 02/17/18 07:47; Start 02/12/18 at 09:00 Buspirone HCl (Buspar) 10 mg BID PO Last administered on 02/13/18at 20:08; Start 02/12/18 at 21:00; Stop 02/13/18 at 23:00; Status DC Buspirone HCl (Buspar) 10 mg TID PO Last administered on 02/15/18at 12:09; Start 02/14/18 at 09:00; Stop 02/15/18 at 18:52; Status DC Vitamin D (Vitamin D3) 50,000 unit WEEKLY PO Last administered on 02/13/18at 20: 15; Start 02/13/18 at 19:00 Divalproex Sodium (Depakote Sprinkles) 125 mg BID@0900,1300 PO Last administered on 02/17/18at 13:14; Start 02/15/18 at 09:00 Buspirone HCl (Buspar) 10 mg BID92 PO Last administered on 02/17/18at 13:14; Start 02/16/18 at 09:00 Buspirone HCl (Buspar) 15 mg HS PO Last administered on 02/17/18at 19:21; Start 02/15/18 at 21:00 Active Scripts Active Reported Namenda (Memantine Hcl) 10 Mg Tablet 10 Mg PO DAILY Zofran Odt (Ondansetron) 4 Mg Tab.rapdis 4 Mg PO PRN Q4HRS PRN 30 Days Voltaren (Diclofenac Sodium) 100 Gm Gel..gram. 1 Gm TP QIDPRN PRN Vitamin B-12 (Cyanocobalamin (Vitamin B-12)) 1,000 Mcg Tablet 1,000 Mcg PO DAILY Trazodone Hcl 50 Mg Tablet 50 Mg PO HS Throat Drops (Pectin) 2.8 Mg Lozenge 1 Lozenge MM PRN Q4HRS PRN Seroquel (Quetiapine Fumarate) 25 Mg Tablet 75 Mg PO BID Senna (Sennosides) 8.6 Mg Tablet 17.2 Mg PO DAILY Rythmol Sr (Propafenone Hcl) 225 Mg Cap.er.12h 75 Mg PO BID Pravastatin Sodium 10 Mg Tablet 10 Mg PO HS Potassium Chloride 10 Meq Tablet.er 10 Meq PO DAILY Novolog (Insulin Aspart) 100 Unit/1 Ml Cartridge 5 Unit SQ TIDWMEALS Novolog (Insulin Aspart) 100 Unit/1 Ml Cartridge 1-20 Unit SQ QIDACHS Nortriptyline Hcl 25 Mg Capsule 50 Mg PO HS Natural Balance Tears Eye Drop (Dextran 70/Hypromellose) 15 Ml Drops 1 Ml OP [id number] Multiple Vitamin (Multivitamin With Minerals) 1 Each Tablet 1 Each PO DAILY Movantik (Naloxegol Oxalate) 25 Mg Tablet 25 Mg PO DAILY Miralax (Polyethylene Glycol 3350) 119 Gm Powder 17 Gm PO HS Milk Of Magnesia (Magnesium Hydroxide) 2,400 Mg/10 Ml Oral.susp 2,400 Mg PO PRN QHS PRN Metformin Hcl 1,000 Mg Tablet 1,000 Mg PO BID Lyrica (Pregabalin) 50 Mg Capsule 50 Mg PO BID Lubricant Eye Drops (Glycerin/Propylene Glycol) 15 Ml Drops 1 Ml OP PRN Q6HRS PRN Lorazepam 0.5 Mg Tablet 0.5 Mg PO PRN Q6HRS PRN Loratadine 10 Mg Tablet 10 Mg PO DAILY Lantus Solostar (Insulin Glargine,Hum.rec.anlog) 100 Unit/1 Ml Insuln.pen 15 Unit SQ QHS Imodium A-D (Loperamide HCl) 2 Mg Capsule 2 Mg PO PRN Q15MIN PRN Hydrocodone-Apap 5-325 (Hydrocodone Bit/Acetaminophen) 1 Each Tablet 1 Tab PO QID PRN Glucose Gel (Dextrose) 38 Gm Gel..gram. 1 Packet PO PRN PRN Glucagon Emergency Kit (Glucagon,Human Recombinant) 1 Mg Kit 1 Mg IM PRN Flonase Allergy Relief (Fluticasone Propionate) 9.9 Ml [place].susp 2 Sprays NS DAILY Feosol (Ferrous Sulfate) 325 Mg Tablet 325 Mg PO PRN TID PRN Cymbalta (Duloxetine Hcl) 30 Mg Capsule.dr 90 Mg PO DAILY Colace (Docusate Sodium) 100 Mg Capsule 100 Mg PO BID Buspirone Hcl 5 Mg Tablet 5 Mg PO BID Ativan (Lorazepam) 0.5 Mg Tablet 0.5 Mg PO HS Aspirin 81 Mg Tab.chew 81 Mg PO DAILY Aricept (Donepezil Hcl) 10 Mg Tablet 10 Mg PO HS [acetasol 2-1%] 3 Drop AU I have reviewed the current psychotropics carefully including drug interactions. Risk benefit ratio favors no change other than as noted in my dictated progress note. Diagnosis: Problems: (1) Major depressive disorder (2) Anxiety disorder (3) Impulse control disorder (4) Mild cognitive impairment ANDRES WILLIAMSON MD Feb 17, 2018 20:00
[2018-02-18] MEDS: INSULIN LISPRO 300 UNITS/3 ML INSULN.PEN. SQ SCH ×4 (07:30→12:41)
[2018-02-18] MEDS: DULoxetine HCL 30 MG CAPSULE.DR PO SCH (09:01)
[2018-02-18] MEDS: metFORMIN 500 MG TABLET PO SCH (09:01)
[2018-02-18] MEDS: CYANOCOBALAMIN (VITAMIN B-12) 1,000 MCG TABLET. PO SCH (09:01)
[2018-02-18] MEDS: SENNOSIDES 8.6 MG TABLET PO SCH (09:02)
[2018-02-18] MEDS: QUEtiapine 50 MG TABLET. PO SCH (09:02)
[2018-02-18] MEDS: PREGABALIN 50 MG CAPSULE PO SCH (09:02)
[2018-02-18] MEDS: busPIRone 10 MG TABLET. PO SCH ×2 (09:03→12:44)
[2018-02-18] MEDS: FERROUS SULFATE 325 MG TABLET. PO SCH ×2 (09:03→12:44)
[2018-02-18] MEDS: ASPIRIN ENTERIC COATED 81 MG TABLET.DR. PO SCH (09:03)
[2018-02-18] MEDS: DOCUSATE SODIUM 100 MG CAPSULE PO SCH (09:03)
[2018-02-18] MEDS: CETIRIZINE HCL 10 MG TABLET PO SCH (09:03)
[2018-02-18] MEDS: POTASSIUM CHLORIDE 10 MEQ TABLET.ER. PO SCH (09:03)
[2018-02-18] MEDS: DIVALPROEX 125 MG CAP.SPRINK PO SCH ×2 (09:03→12:44)
[2018-02-18] MEDS: NALOXEGOL OXALATE 25 MG TABLET. PO SCH (09:04)
[2018-02-18] MEDS: MEMANTINE 10 MG TABLET. PO SCH (09:04)
[2018-02-18] MEDS: FLUTICASONE 50MCG/NASAL SPRAY 16GM BOTTLE. NS SCH (09:04)
[2018-02-18] MEDS: MULTIVITAMIN with MINERAL TABLET. PO SCH (09:04)
[2018-02-18] MEDS: POLYVINYL ALCOHOL 1.4% OPHTH SOLUTION 15ML BOTTLE. OU SCH ×2 (09:04→12:45)
[2018-02-18 09:06] VITALS: BP 106/61
[2018-02-18] MEDS: PROPAFENONE 150 MG TABLET. PO SCH (09:06)
[2018-02-18] MEDS: DICLOFENAC SODIUM 1% TOPICAL GEL 100GM TUBE. TP PRN (09:07)
[2018-02-18] MEDS ORDERED: DIVA500T9 PO (14:03)
[2018-02-18] MEDS ORDERED: BUSP10TA PO (14:10)
[2018-02-18] MEDS ORDERED: BUSP15TA PO (14:11)
[2018-02-18] MEDS ORDERED: CHOL500016 PO (14:21)
[2018-02-18] MEDS ORDERED: MAG355OR17 PO (14:47)
--- NOTE | 2018-02-18 17:21 | PDOC ---
Exam Note: Maxx Note: Please also refer to the separate dictated note~for this date of service dictated separately.~Patient seen individually. Discussed the patient with Nursing staff reviewed the chart.~Reviewed interim history and current functioning. Reviewed vital signs,~Labs/ Radiology~and current medications noted below. Continue current treatment with the changes noted in the dictated addendum note Assessment: Vital Signs: Vital Signs Date Time Temp Pulse Resp B/P (MAP) Pulse Ox O2 Delivery O2 Flow Rate FiO2 02/18/18 09:06 69 106/61 02/17/18 16:31 97.6 18 96 02/15/18 09:12 Room Air I&O Intake and Output 02/18/18 07:00 Intake Total 1200 ml Balance 1200 ml Intake Oral 1200 ml Labs: Laboratory Tests Test 02/17/18 19:28 02/18/18 08:18 02/18/18 12:01 Glucose (Fingerstick) 154 mg/dL (70-99) H 132 mg/dL (70-99) H 136 mg/dL (70-99) H Current Medications: Meds: Current Medications Acetaminophen (Tylenol) 650 mg PRN Q6HRS PRN PO PAIN / TEMP; Start 02/11/18 at 17:30; Stop 02/18/18 at 16:07; Status DC Multi-Ingredient Ointment (Analgesic [place]) 1 jonathan PRN QID PRN TP MUSCLE PAIN; Start 02/11/18 at 17:30; Stop 02/18/18 at 16:07; Status DC Al Hydroxide/Mg Hydroxide (Mylanta Plus Xs) 15 ml PRN AFTMEALHC PRN PO DYSPEPSIA; Start 02/11/18 at 17:30; Stop 02/18/18 at 16:07; Status DC Magnesium Hydroxide (Milk Of Magnesia) 2,400 mg PRN QHS PRN PO CONSTIPATION; Start 02/11/18 at 17:30; Stop 02/18/18 at 16:07; Status DC Cyanocobalamin (Vitamin B-12) 1,000 mcg DAILY PO Last administered on 02/18/18at 09:01; Start 02/12/18 at 09:00; Stop 02/18/18 at 16:07; Status DC Diclofenac Sodium (Voltaren) 1 jonathan QIDPRN PRN TP PAIN Last administered on at 09:07; Start 02/11/18 at 17:45; Stop 02/18/18 at 16:07; Status DC Ferrous Sulfate (Feosol) 325 mg TIDWMEALS PO Last administered on 02/18/18 12: 44; Start 02/12/18 at 08:00; Stop 02/18/18 at 16:07; Status DC Insulin Glargine (Lantus) 15 units QHS SQ Last administered on 02/17/18 19:34; Start 02/11/18 at 21:00; Stop 02/18/18 at 16:07; Status DC Naloxegol (Movantik) 25 mg DAILY PO Last administered on 02/18/18 09:04; Start 02/12/18 at 09:00; Stop 02/18/18 at 16:07; Status DC Nortriptyline HCl (Pamelor) 50 mg HS PO Last administered on 02/17/18 19:21; Start 02/11/18 at 21:00; Stop 02/18/18 at 16:07; Status DC Polyethylene Glycol (miraLAX) 17 gm HS PO Last administered on 02/17/18 19:19; Start 02/11/18 at 21:00; Stop 02/18/18 at 16:07; Status DC Pregabalin (Lyrica) 50 mg BID PO Last administered on 02/18/18 09:02; Start at 21:00; Stop 02/18/18 at 16:07; Status DC Aspirin (Aspirin Enteric Coated) 81 mg DAILYWBKFT PO Last administered on at 09:03; Start 02/12/18 at 08:00; Stop 02/18/18 at 16:07; Status DC Buspirone HCl (Buspar) 5 mg BID PO Last administered on 02/12/18at 08:16; Start 02/11/18 at 21:00; Stop 02/12/18 at 18:31; Status DC Artificial Tears (Artificial Tears) 1 drop QID OU Last administered on 12:45; Start 02/11/18 at 21:00; Stop 02/18/18 at 16:07; Status DC Glucose (Insta-Glucose) 15 gm PRN Q15MIN PRN PO LOW BLOOD SUGAR; Start at 18:00; Stop 02/18/18 at 16:07; Status DC Docusate Sodium (Colace) 100 mg BID PO Last administered on 02/18/18at 09:03; Start 02/11/18 at 21:00; Stop 02/18/18 at 16:07; Status DC Donepezil HCl (Aricept) 10 mg QHS PO Last administered on 02/17/18at 19:21; Start 02/11/18 at 21:00; Stop 02/18/18 at 16:07; Status DC Duloxetine HCl (Cymbalta) 90 mg DAILY PO Last administered on 02/18/18at 09:01; Start 02/12/18 at 09:00; Stop 02/18/18 at 16:07; Status DC Fluticasone Propionate (Flonase) 2 spray DAILY NS Last administered on at 09:04; Start 02/12/18 at 09:00; Stop 02/18/18 at 16:07; Status DC Non-Formulary Medication (Glucagon,Human Recombinant (Glucagon Emergency Kit)) 1 mg PRN IM ; Start 02/11/18 at 17:45; Status UNV Artificial Tears (Artificial Tears) 1 drop PRN Q6HRS PRN OU DRY EYE; Start at 18:15; Stop 02/18/18 at 16:07; Status DC Acetaminophen/ Hydrocodone Bitart (Lortab 5/325) 1 tab PRN Q6HRS PRN PO PAIN Last administered on 02/17/18 18:06; Start 02/11/18 at 18:00; Stop 02/18/18 at 16 :07; Status DC Insulin Human Lispro (HumaLOG) 5 units TIDWMEALS SQ Last administered on at 12:41; Start 02/11/18 at 18:00; Stop 02/18/18 at 16:07; Status DC Loperamide HCl (Imodium) 2 mg PRN Q15MIN PRN PO DIARRHEA; Start 02/11/18 at 18: 00; Stop 02/18/18 at 16:07; Status DC Cetirizine HCl (ZyrTEC) 10 mg DAILY PO Last administered on 02/18/18at 09:03; Start 02/12/18 at 09:00; Stop 02/18/18 at 16:07; Status DC Lorazepam (Ativan) 0.5 mg PRN Q6HRS PRN PO ANXIETY / AGITATION Last administered on 02/12/18 19:51; Start 02/11/18 at 18:00; Stop 02/18/18 at 16:07 ; Status DC Lorazepam (Ativan) 0.5 mg QHS PO Last administered on 02/17/18 19:21; Start at 21:00; Stop 02/18/18 at 16:07; Status DC Magnesium Hydroxide (Milk Of Magnesia) 2,400 mg PRN QHS PRN PO CONSTIPATION; Start 02/11/18 at 18:00; Status Cancel Metformin HCl (Glucophage) 1,000 mg BIDWMEALS PO Last administered on 02/18/18 09:01; Start 02/12/18 at 08:00; Stop 02/18/18 at 16:07; Status DC Multivitamins/ Calcium (Thera-M Plus) 1 tab DAILY PO Last administered on 09:04; Start 02/12/18 at 09:00; Stop 02/18/18 at 16:07; Status DC Non-Formulary Medication (Pectin (Throat Drops)) 1 lozenge PRN Q4HRS PRN MM sore throat; Start 02/11/18 at 17:45; Status UNV Potassium Chloride (Klor-Con) 10 meq DAILYWBKFT PO Last administered on 09:03; Start 02/12/18 at 08:00; Stop 02/18/18 at 16:07; Status DC Atorvastatin Calcium (Lipitor) 5 mg QHS PO Last administered on 02/17/18 19:21 ; Start 02/11/18 at 21:00; Stop 02/18/18 at 16:07; Status DC Propafenone HCl (Rythmol) 75 mg BID PO Last administered on 02/18/18 09:06; Start 02/11/18 at 21:00; Stop 02/18/18 at 16:07; Status DC Quetiapine Fumarate (SEROquel) 75 mg BID PO Last administered on 02/18/18 09:02 ; Start 02/11/18 at 21:00; Stop 02/18/18 at 16:07; Status DC Sennosides (Senna) 17.2 mg DAILY PO Last administered on 02/18/18at 09:02; Start 02/12/18 at 09:00; Stop 02/18/18 at 16:07; Status DC Trazodone HCl (Desyrel) 50 mg QHS PO Last administered on 02/17/18at 19:20; Start 02/11/18 at 21:00; Stop 02/18/18 at 16:07; Status DC Insulin Human Lispro (HumaLOG) 0-9 UNITS QIDACHS SQ Last administered on at 18:09; Start 02/12/18 at 07:30; Stop 02/18/18 at 16:07; Status DC Dextrose 12.5 gm PRN Q15MIN PRN IV SEE COMMENTS; Start 02/11/18 at 18:00; Stop 02/18/18 at 16:07; Status DC Non-Formulary Medication (Insulin Aspart (Novolog)) 200-249=5u, 250-299=7u, 300- 349=10u,... QIDACHS SQ ; Start 02/11/18 at 21:00; Status UNV Memantine (Namenda) 10 mg DAILY PO Last administered on 02/18/18at 09:04; Start 02/12/18 at 09:00; Stop 02/18/18 at 16:07; Status DC Buspirone HCl (Buspar) 10 mg BID PO Last administered on 02/13/18at 20:08; Start 02/12/18 at 21:00; Stop 02/13/18 at 23:00; Status DC Buspirone HCl (Buspar) 10 mg TID PO Last administered on 02/15/18at 12:09; Start 02/14/18 at 09:00; Stop 02/15/18 at 18:52; Status DC Vitamin D (Vitamin D3) 50,000 unit WEEKLY PO Last administered on 02/13/18at 20: 15; Start 02/13/18 at 19:00; Stop 02/18/18 at 16:07; Status DC Divalproex Sodium (Depakote Sprinkles) 125 mg BID@0900,1300 PO Last administered on 02/18/18at 12:44; Start 02/15/18 at 09:00; Stop 02/18/18 at 16:07; Status DC Buspirone HCl (Buspar) 10 mg BID92 PO Last administered on 02/18/18at 12:44; Start 02/16/18 at 09:00; Stop 02/18/18 at 16:07; Status DC Buspirone HCl (Buspar) 15 mg HS PO Last administered on 02/17/18at 19:21; Start 02/15/18 at 21:00; Stop 02/18/18 at 16:07; Status DC Active Scripts Active Reported Advanced Antacid Liquid (Mag Hydrox/Al Hydrox/Simeth) 355 Ml Oral.susp 15 Ml PO PRN Vitamin D3 (Cholecalciferol (Vitamin D3)) 5,000 Unit Tablet 50,000 Unit PO WEEKLY Buspirone Hcl 10 Mg Tablet 10 Mg PO BID@0900,1400 Divalproex Sodium 500 Mg Tablet.dr 125 Mg PO BID@0900,1300 Namenda (Memantine Hcl) 10 Mg Tablet 10 Mg PO DAILY Zofran Odt (Ondansetron) 4 Mg Tab.rapdis 4 Mg PO PRN Q4HRS PRN 30 Days Voltaren (Diclofenac Sodium) 100 Gm Gel..gram. 1 Gm TP QIDPRN PRN Vitamin B-12 (Cyanocobalamin (Vitamin B-12)) 1,000 Mcg Tablet 1,000 Mcg PO DAILY Trazodone Hcl 50 Mg Tablet 50 Mg PO HS Throat Drops (Pectin) 2.8 Mg Lozenge 1 Lozenge MM PRN Q4HRS PRN Seroquel (Quetiapine Fumarate) 25 Mg Tablet 75 Mg PO BID Senna (Sennosides) 8.6 Mg Tablet 17.2 Mg PO DAILY Rythmol Sr (Propafenone Hcl) 225 Mg Cap.er.12h 75 Mg PO BID Pravastatin Sodium 10 Mg Tablet 10 Mg PO HS Potassium Chloride 10 Meq Tablet.er 10 Meq PO DAILY Novolog (Insulin Aspart) 100 Unit/1 Ml Cartridge 5 Unit SQ TIDWMEALS Novolog (Insulin Aspart) 100 Unit/1 Ml Cartridge 1-20 Unit SQ QIDACHS Nortriptyline Hcl 25 Mg Capsule 50 Mg PO HS Natural Balance Tears Eye Drop (Dextran 70/Hypromellose) 15 Ml Drops 1 Ml OP [id number] Multiple Vitamin (Multivitamin With Minerals) 1 Each Tablet 1 Each PO DAILY Movantik (Naloxegol Oxalate) 25 Mg Tablet 25 Mg PO DAILY Miralax (Polyethylene Glycol 3350) 119 Gm Powder 17 Gm PO HS Milk Of Magnesia (Magnesium Hydroxide) 2,400 Mg/10 Ml Oral.susp 2,400 Mg PO PRN QHS PRN Metformin Hcl 1,000 Mg Tablet 1,000 Mg PO BID Lyrica (Pregabalin) 50 Mg Capsule 50 Mg PO BID Lubricant Eye Drops (Glycerin/Propylene Glycol) 15 Ml Drops 1 Ml OP PRN Q6HRS PRN Lorazepam 0.5 Mg Tablet 0.5 Mg PO PRN Q6HRS PRN Loratadine 10 Mg Tablet 10 Mg PO DAILY Lantus Solostar (Insulin Glargine,Hum.rec.anlog) 100 Unit/1 Ml Insuln.pen 15 Unit SQ QHS Imodium A-D (Loperamide HCl) 2 Mg Capsule 2 Mg PO PRN Q15MIN PRN Hydrocodone-Apap 5-325 (Hydrocodone Bit/Acetaminophen) 1 Each Tablet 1 Tab PO QID PRN Glucose Gel (Dextrose) 38 Gm Gel..gram. 1 Packet PO PRN PRN Glucagon Emergency Kit (Glucagon,Human Recombinant) 1 Mg Kit 1 Mg IM PRN Flonase Allergy Relief (Fluticasone Propionate) 9.9 Ml [place].susp 2 Sprays NS DAILY Feosol (Ferrous Sulfate) 325 Mg Tablet 325 Mg PO PRN TID PRN Cymbalta (Duloxetine Hcl) 30 Mg Capsule.dr 90 Mg PO DAILY Colace (Docusate Sodium) 100 Mg Capsule 100 Mg PO BID Buspirone Hcl 5 Mg Tablet 5 Mg PO BID Ativan (Lorazepam) 0.5 Mg Tablet 0.5 Mg PO HS Aspirin 81 Mg Tab.chew 81 Mg PO DAILY Aricept (Donepezil Hcl) 10 Mg Tablet 10 Mg PO HS [acetasol 2-1%] 3 Drop AU I have reviewed the current psychotropics carefully including drug interactions. Risk benefit ratio favors no change other than as noted in my dictated progress note. Diagnosis: Problems: (1) Mild cognitive impairment (2) Impulse control disorder (3) Anxiety disorder ANDRES WILLIAMSON MD Feb 18, 2018 17:21
--- NOTE | 2018-02-18 21:43 | PN ---
DATE: 02/15/2018 This late entry 02/15/2018 covers elements not covered in my initial 02/15/2018. SUBJECTIVE: I met with the patient in the evening. The patient slept 6-1/2 hours previous evening. He has done a little better during the day. He is still anxious, gets irritable at times. REVIEW OF SYSTEMS: No CV, , pulmonary, eye, ENT system symptoms on review. Reliability poor. MENTAL STATUS EXAM: Oriented to himself and situation. Speech coherent, abstraction fair, computation impaired, language function intact. Mood and affect showing improvement. LABORATORY DATA: Reviewed. IMPRESSION: Unchanged from initial note; major depressive disorder, recurrent, in partial remission; anxiety disorder, unspecified. PLAN: Increase the Buspar from 10 mg three times a day to 10 mg twice a day and 15 mg in the evening. Continue rest unchanged. MAN Milton WILLIAMSON MD DR: NISHI/torie JOB#: [id number] / [id number]
--- NOTE | 2018-02-18 21:45 | PN ---
DATE: 02/16/2018 PSYCHIATRIC PROGRESS NOTE This late entry 02/16/2018 covers elements not covered in my initial note 02/16/2018. SUBJECTIVE: I met with the patient in the evening. The patient slept 6-1/2 hours. He remains somewhat withdrawn, anxious, but not aggressive. REVIEW OF SYSTEMS: No CV, , pulmonary, eye system symptoms on review. MENTAL STATUS EXAM: Oriented to himself and situation. Speech coherent, abstraction fair, computation impaired met with him in his room. Insight showing improvement. No active suicidal or homicidal ideation. Attention span short. LABORATORIES: Reviewed. IMPRESSION: Major depressive disorder, recurrent, in partial remission; anxiety disorder, unspecified; mild cognitive impairment. PLAN: Continue current psychotropics. Check valproic acid level in the morning of 02/17/2018. Rest unchanged. MAN Milton WILLIAMSON MD DR: NISHI/torie JOB#: [id number] / [id number]
--- NOTE | 2018-02-19 01:36 | DS ---
DATE OF DISCHARGE: 02/18/2018 DISCHARGE SUMMARY/PSYCHIATRIC PROGRESS NOTE This note covers elements not covered in my initial note of 02/18/2018. REASON FOR ADMISSION: Please refer to the admission history for details. Briefly, the patient is a 77-year-old male referred to us from [facility] by his primary care physician on account of failure for outpatient psychiatric interventions. The patient had had increased agitation, was kicking at doors, exit seeking escalating behaviors, yelling and throwing things. He had been an extremely labile, out of control in his behaviors, referred for inpatient psychiatric stabilization. SIGNIFICANT FINDINGS AND CLINICAL COURSE: Following admission, the patient was seen daily individually by myself, followed medically per Dr. Stewart/Dr. Valentin. He is somewhat irritable, labile. Adjustments were made in his psychotropics. He seemed to respond to a combination of Depakote Sprinkle 125 mg twice a day, Aricept 10 mg a day, Ativan 0.5 mg at bedtime, BuSpar 10 mg twice a day and 15 mg at bedtime, Cymbalta 60 mg a day, Ativan p.r.n., Namenda 10 b.i.d., Seroquel 50 b.i.d., Pamelor 50 mg at bedtime, Depakote sprinkle 125 b.i.d., trazodone 50 mg at bedtime. Consideration should be given to stopping the Pamelor as an outpatient. Gradually mood appeared to improve. He was less irritable, labile, more insightful prior to discharge, 02/18/2018. REVIEW OF SYSTEMS: No CV, , pulmonary, eye, ENT system symptoms on review. Reliability poor. MENTAL STATUS EXAM: Oriented to himself. Insight, judgment, recent memory is impaired. Language function intact. Mood and affect showing improvement. Aware of the month and ____ he walks as well. LABORATORY DATA: Reviewed. FINAL DIAGNOSES: Major depressive disorder, recurrent with psychotic features, in partial remission; cognitive disorder, unspecified; impulse control disorder, unspecified; anxiety disorder, unspecified. Rest unchanged from admission. DISCHARGE MEDICATIONS: Please refer to the [facility]. DISCHARGE INSTRUCTIONS: Outpatient psychiatric medical followup at the [facility]. MAN Milton WILLIAMSON MD DR: NISHI/torie JOB#: [id number] / [id number]
--- NOTE | 2018-02-19 09:55 | PN ---
DATE: 02/17/2018 PSYCHIATRIC PROGRESS NOTE This late entry 02/17/2018 covers elements not covered in my initial note 02/17/2018. SUBJECTIVE: I met with the patient at length in his room. Overall, he is doing reasonably well. REVIEW OF SYSTEMS: No CV, , pulmonary, eye, ENT system symptoms on review. Gets a little irritable, labile at times, but redirects. MENTAL STATUS EXAM: Oriented to himself and situation. Speech is coherent, has some latency. Abstraction fair, computation impaired, language function intact, attention span short. Mood and affect remain somewhat anxious at times. LABORATORY DATA: Valproic acid level is 11. ASSESSMENT AND PLAN: For the most part behaviorally, the patient's impulse control is better. We will not increase the Depakote. Since the patient's insistent on being discharged back to [facility], we will consider that for 02/18/2018. ANDRES WILLIAMSON MD DR: NISHI/torie JOB#: [id number] / [id number]
== END 2018-02-18 15:45 | disposition home or self-care (01) | DRG 885 ==
LOC: ER 13:42 → EEVIPCON 13:42 → GEROPSY 16:33
PROVIDERS: ADMIT Psychiatry & Neurology Psychiatry; ATTEND Psychiatry & Neurology Psychiatry
DX: F33.3 Major depressive disorder, recurrent, severe with psychotic symptoms (principal); I48.91 Unspecified atrial fibrillation; E11.9 Type 2 diabetes mellitus without complications; G30.9 Alzheimer's disease, unspecified; F01.51 Vascular dementia, unspecified severity, with behavioral disturbance; E78.5 Hyperlipidemia, unspecified; F09 Unspecified mental disorder due to known physiological condition; G31.84 Mild cognitive impairment of uncertain or unknown etiology; F41.9 Anxiety disorder, unspecified; F63.9 Impulse disorder, unspecified; G89.29 Other chronic pain; I10 Essential (primary) hypertension; M54.16 Radiculopathy, lumbar region; T40.2X5A Adverse effect of other opioids, initial encounter; K59.03 Drug induced constipation; M77.9 Enthesopathy, unspecified; Z02.9 Encounter for administrative examinations, unspecified; Z66 Do not resuscitate; Z79.899 Other long term (current) drug therapy
CPT/HCPCS: 36415; 80053; 80061; 80164; 81001; 82306; 82607; 82947; 83036; 83540; 83550; 83735; 84436; 84443; 84480; 85025; 86593; 93005; J1815; 99285-25

== ENCOUNTER 2020-06-30 00:30 | Emergency (ER) | payer MEDICAID, MEDICARE, OTHER ==
[~2020-06-30] VITALS: Ht 180.3 cm; Wt 104.5 kg
[~2020-06-30 00:30] MED LIST: ACETASOL AU; ASPI-630 PO; BUSP10TA PO; BUSP15TA PO; BUSP5TAB PO; CHOL500016 PO; CYAN-25 PO; DEXT38GE2 PO; DICL100G18 TP; DIVA-53 PO; DOCU-109 PO; DONE10TA61 PO; DULO30CA2 PO; FERR325T72 PO; FLUT9.9S NS; GLUC1KIT IM; GLYC15DR2 OP; HYDR-2155 PO; INSU100C4 SQ; INSU100I13 SQ; LOPE-101 PO; LORA0.5T PO; LORA0.5T21 PO; LORA10TA3 PO; MAG355OR17 PO; MAGN24003 PO; MEMA10TA PO; METF10007 PO; MULT-460 PO; NALO25TA4 PO; NORT25CA PO; ONDA4TAB10 PO; PECT2.8L3 MM; POLY119P4 PO; POTA10TA10 PO; PRAV10TA2 PO; PREG50CA PO; PROP225C2 PO; QUET25TA5 PO; SENN-182 PO; TRAZ-120 PO; [UNRECOGNIZED DRUG - CODE] OP
--- NOTE | 2020-06-30 01:09 | PHYS DOC ---
Past History Past Medical History: Anemia, Anxiety, Depression, Diabetes, High Cholesterol, Hypertension, Other Past Surgical History: Other Alcohol Use: None Drug Use: None General Adult EDM: Chief Complaint: MECHANICAL FALL HPI: HPI: Patient is a 79-year-old male oriented to self, report given by EMS per nursing facility. Patient was at unwitnessed ground-level fall from standing. Staff said they heard him fall and came over to find him on the floor, no LOC. Had bleeding from bilateral nares. Takes aspirin, denies any other blood thinners. Epistaxis resolved prior to arrival. Patient not complaining of any pain Review of Systems: Review of Systems: Patient denies pain or other symptoms, review of systems inhibited by patient's dementia Heart Score: Risk Factors: Risk Factors: DM, Current or recent (<one month) smoker, HTN, HLP, family history of CAD, obesity. Risk Scores: Score 0 - 3: 2.5% MACE over next 6 weeks - Discharge Home Score 4 - 6: 20.3% MACE over next 6 weeks - Admit for Clinical Observation Score 7 - 10: 72.7% MACE over next 6 weeks - Early Invasive Strategies Allergies: Allergies: Allergies Coded Allergies Type Severity Reaction Last Updated Verified No Known Drug Allergies 06/30/20 No Physical Exam: PE: Constitutional: Well developed, well nourished, no acute distress, non-toxic appearance. [] HENT: Normocephalic, atraumatic, bilateral external ears normal, oropharynx moist, no oral exudates, nose mild swelling and dried blood in nares. [] Eyes: PERRLA, EOMI, conjunctiva normal, no discharge. [] Neck: Normal range of motion, no tenderness, supple, no stridor. [] Cardiovascular:Heart rate regular rhythm, no murmur [] Lungs & Thorax: Bilateral breath sounds clear to auscultation [] Abdomen: Bowel sounds normal, soft, no tenderness, no masses, no pulsatile masses. [] Skin: Warm, dry, no erythema, no rash. [] Back: No tenderness, no CVA tenderness. [] Extremities: No tenderness, no cyanosis, no clubbing, ROM intact, no edema. [] Neurologic: Alert and oriented X 3, normal motor function, normal sensory function, no focal deficits noted. [] Psychologic: Affect normal, judgement normal, mood normal. [] Current Patient Data: Vital Signs: Vital Signs Date Time Temp Pulse Resp B/P (MAP) Pulse Ox O2 Delivery O2 Flow Rate FiO2 06/30/20 00:30 98.4 60 20 146/77 (100) 95 Room Air EKG: EKG: [] Radiology/Procedures: Radiology/Procedures: EXAM: CT head without contrast INDICATION: Fall, headache worsening COMPARISON: None available TECHNIQUE: Axial CT imaging through the head without intravenous contrast. One or more of the following individualized dose reduction techniques were utilized for this examination: 1. Automated exposure control 2. Adjustment of the mA and/or kV according to patient size 3. Use of iterative reconstruction technique. FINDINGS: The ventricles and sulci are moderately enlarged, reflecting age-related volume loss. There is a mild burden of periventricular and deep hypoattenuating white matter lesions. Morrison-white matter differentiation is maintained. There is no intracranial hemorrhage, acute infarct, or mass lesion. Basal cisterns are clear. The skull and scalp are intact. Paranasal sinuses and mastoid air cells are clear. Globes and orbits are intact.. IMPRESSION: 1. No acute intracranial abnormality. 2. Moderate volume loss and mild white matter disease. [] Course & Med Decision Making: Course & Med Decision Making Pertinent Labs and Imaging studies reviewed. (See chart for details) [] Dragon Disclaimer: Dragon Disclaimer: This electronic medical record was generated, in whole or in part, using a voice recognition dictation system. Departure Departure: Impression: Primary Impression: Fall Disposition: 01 DC HOME SELF CARE/HOMELESS Condition: STABLE Referrals: RONALD JOSÉ MD (PCP) Patient Instructions: Fall Prevention and Home Safety, [id number] NOAH SMITH MD Jun 30, 2020 01:09
--- NOTE | 2020-06-30 02:02 | RAD ---
EXAM: CT head without contrast INDICATION: Fall, headache worsening COMPARISON: None available TECHNIQUE: Axial CT imaging through the head without intravenous contrast. One or more of the following individualized dose reduction techniques were utilized for this examination: 1. Automated exposure control 2. Adjustment of the mA and/or kV according to patient size 3. Use of iterative reconstruction technique. FINDINGS: The ventricles and sulci are moderately enlarged, reflecting age-related volume loss. There is a mild burden of periventricular and deep hypoattenuating white matter lesions. Morrison-white matter differentiation is maintained. There is no intracranial hemorrhage, acute infarct, or mass lesion. Basal cisterns are clear. The skull and scalp are intact. Paranasal sinuses and mastoid air cells are clear. Globes and orbits are intact.. IMPRESSION: 1. No acute intracranial abnormality. 2. Moderate volume loss and mild white matter disease. Electronically signed by: Raisa Chowdhury MD (06/30/2020 1:59 AM) [id number]
[2020-06-30 04:52] VITALS: BP 141/90
== END 2020-06-30 04:56 | disposition home or self-care (01) ==
LOC: ER 00:30
DX: R04.0 Epistaxis (principal); F41.9 Anxiety disorder, unspecified; F31.9 Bipolar disorder, unspecified; E78.00 Pure hypercholesterolemia, unspecified; E11.9 Type 2 diabetes mellitus without complications; I10 Essential (primary) hypertension; Z86.2 Personal history of diseases of the blood and blood-forming organs and certain disorders involving the immune mechanism; Z86.72 Personal history of thrombophlebitis; W18.39XA Other fall on same level, initial encounter; Y93.89 Activity, other specified; Y92.89 Other specified places as the place of occurrence of the external cause; Y99.8 Other external cause status
CPT/HCPCS: 70450; 82947; 99284-25

== ENCOUNTER 2021-11-26 20:44 | Emergency (ER) | payer MEDICARE ==
[~2021-11-26] VITALS: Ht 180.3 cm; Wt 108.7 kg
--- NOTE | 2021-11-26 20:48 | PHYS DOC ---
Past History Past Medical History: Anemia, Anxiety, Arthritis, CAD, CHF, Dementia, Depression, Diabetes, High Cholesterol, Hypertension, UTI, Other Past Surgical History: Other Alcohol Use: None Drug Use: None General Adult HPI: HPI: ".. I fell.. ".. " I fell on my face....". " My hips hurt..." Patient is a 80 year old male who presents with hx of fall. Complaints of head, pelvic pain and low back. Pt. did hit head in fall. No loss of consciousness. Nurses were in the next room and heard him fall. Patient has been running a temperature the last couple days. No history of travel. No history of severe ill contacts. Has been a resident of [facility] and rehab since 04/13/2013. Patient past medical history diabetes, depression, idiopathic neuropathy, hypertensive heart disease, anemia, behavioral disturbance, anxiety disorder, hyperlipidemia, insomnia, cognitive impairment, gait disorder. Treated falls, impulse disorder, muscle weakness, allergic rhinitis, constipation, diarrhea, osteoarthritis, patient follows with Dr. Douglas as primary. Dr. Roe for behavioral psychiatric issues. Review of Systems: Review of Systems: Constitutional: Denies fever or chills Eyes: Denies change in visual acuity HENT: Denies nasal congestion or sore throat Respiratory: Denies cough or shortness of breath Cardiovascular: Denies chest pain or edema GI: Denies abdominal pain, nausea, vomiting, bloody stools or diarrhea : Denies dysuria Musculoskeletal: Denies back pain or joint pain Integument: Denies rash Neurologic: Denies headache, focal weakness or sensory changes Endocrine: Denies polyuria or polydipsia Lymphatic: Denies swollen glands Psychiatric: Denies depression or anxiety Family History: Family History: Not currently available Current Medications: Current Meds: See nursing for home meds Allergies: Allergies: Allergies Coded Allergies Type Severity Reaction Last Updated Verified No Known Drug Allergies 06/30/20 No Physical Exam: PE: Constitutional: moderate acute distress, non-toxic appearance. [] HENT: Normocephalic,facial contuson, bilateral external ears normal, oropharynx moist, no oral exudates, nose normal. [] Eyes: PERRLA, EOMI, conjunctiva normal, no discharge. [] Neck: Normal range of motion, no tenderness, supple, no stridor. [] Cardiovascular:Heart rate regular rhythm, no murmur [] PMI to the left.. Lungs & Thorax: Bilateral breath sounds equal apex, with crackles> Lt base on auscultation [] Pacer on Lt. Abdomen: Bowel sounds normal, soft, no tenderness, no masses, no pulsatile masses. Obese. Skin: Warm, dry, no erythema, no rash. [] Poor turgor Back: No tenderness, no CVA tenderness. Lumbar sacral tenderness Extremities: no cyanosis, no clubbing, ROM intact, no edema. Bilateral hip tenderness. Right foot and ankle tenderness Neurologic: Alert and oriented X 3, moves all extremities on request, does have distal sensory, no focal deficits noted. [] Psychologic: Affect anxious, memory issues, , mood normal. [] EKG: EKG: My interpretation of EKG shows a sinus rhythm at 86 bpm. Does have left axis deviation. Abnormal contour changes anterior leads. No findings of acute STEMI or contralateral changes. Does have some questionable inferior changes. Time of EKG is 2116 hrs. Abnormal EKG. [] Radiology/Procedures: Radiology/Procedures: [][address] [address] IMAGING REPORT Signed PATIENT: ELO SCHROEDER ACCOUNT: [id number] : 1940 LOCATION: ER AGE: 80 SEX: M EXAM STATUS: REG ER ORD. PHYSICIAN: MERCY ANDERSON MD REASON: fall PROCEDURE: CT PELVIS WO CONTRAST CT PELVIS WO, CT LUMBAR SPINE WO, CT HEAD AND C-SPINE WO dated 11/26/2021 9:09 PM Indication:Patient fell. On blood thinners. Comparison: CT head 06/30/2020. Technique: Helical noncontrast images were performed. Sagittal and coronal reconstructions were obtained. One or more of the following individualized dose reduction techniques were utilized for this examination: 1. Automated exposure control 2. Adjustment of the mA and/or kV according to patient size 3. Use of iterative reconstruction technique Findings: CT head: There is no apparent intracranial hemorrhage or abnormal extra-axial fluid collection. There is some patchy low attenuation in the cerebral white ma tter consistent with chronic small vessel ischemic injury. No other area of abnormal density is seen. The ventricles and basilar cisterns are normally positioned. Bone windows show no apparent fracture of the skull or abnormal sinus or mastoid opacification. CT cervical spine: Alignment is normal. There is no apparent loss of vertebral body height or prevertebral soft tissue swelling. No fracture line is seen. There is prominent disc narrowing with relative sparing at C2-3. There may be fusion across the C3-4 disc. No destructive process is seen. Evaluation of the soft tissue components of the canal is limited without intrathecal contrast. CT lumbar spine: Alignment is normal. There is no apparent loss of vertebral body height or other evidence for fracture. There is evidence of prior posterior decompression at L3 and L4. No destructive process is seen. Vacuum changes are shown in the L2-3, L4-5 and L5-S1 discs. Evaluation of the soft tissue components of the canal is limited without intrathecal contrast. CT PELVIS: No fracture or dislocation is seen. There is no apparent destructive process. Mild arthritic changes are present at the hip. No soft tissue hematoma is seen. IMPRESSION: All studies show no acute abnormality. Electronically signed by: Kevin Wilson Jr., MD (11/26/2021 9:32 PM) [facility] DICTATED AND SIGNED BY: KEVIN WILSON Jr, MD DATE: 11/26/212119 CC: RONALD JOSÉ MD; MERCY ANDERSON MD ~MTH0 0 Heart Score: C/O Chest Pain: No HEART Score for Chest Pain: HEART Score for Chest Pain Response (Comments) Value History Moderately Suspicious 1 ECG Nonspecific Repolarizatio 1 Age > 65 2 Risk Factors 1 or 2 Risk Factors 1 Troponin >3 x Normal Limit 2 Total 7 Risk Factors: Risk Factors: DM, Current or recent (<one month) smoker, HTN, HLP, family history of CAD, obesity. Risk Scores: Score 0 - 3: 2.5% MACE over next 6 weeks - Discharge Home Score 4 - 6: 20.3% MACE over next 6 weeks - Admit for Clinical Observation Score 7 - 10: 72.7% MACE over next 6 weeks - Early Invasive Strategies Course & Med Decision Making: Course & Med Decision Making Pertinent Labs and Imaging studies reviewed. (See chart for details) Ice packs as needed. Take Cipro 500 mg twice a day. Follow up pending labs and cultures. Discussed presentation, testing and tx. plan with Dr. Stewart- Admit to his service and Cardiology consult. [facility] May have beds after 0700 hrs. ( If full staffing) Transfer to [facility]. Impression: 1. Fall 2. Fever 3. UTI 4. Lt basilar Pneumonia 5. Leukocytosis 14.4 6. Anemia 12. Hgb. 7. Elevated D-dimer- `.15 ( On Eliquis) 8. Elevated Trop. 476 9. CHF- BNP 1,714 10. Dementia [] Dragon Disclaimer: Dragon Disclaimer: This electronic medical record was generated, in whole or in part, using a voice recognition dictation system. Departure Departure: Referrals: RONALD JOSÉ MD (PCP) Lori Disclaimer This chart was dictated in whole or in part using Voice Recognition software in a busy, high-work load, and often noisy Emergency Department environment. It may contain unintended and wholly unrecognized errors or omissions. Dragon Disclaimer This chart was dictated in whole or in part using Voice Recognition software in a busy, high-work load, and often noisy Emergency Department environment. It may contain unintended and wholly unrecognized errors or omissions. MERCY ANDERSON MD Nov 26, 2021 20:48
[2021-11-26] MEDS ORDERED: IV RINGERS SOLUTION,LACTATED 1,000 ML IV SCH (21:30)
--- NOTE | 2021-11-26 21:34 | RAD ---
CT PELVIS WO, CT LUMBAR SPINE WO, CT HEAD AND C-SPINE WO dated 11/26/2021 9:09 PM Indication:Patient fell. On blood thinners. Comparison: CT head 06/30/2020. Technique: Helical noncontrast images were performed. Sagittal and coronal reconstructions were obtai keisha. One or more of the following individualized dose reduction techniques were utilized for this examinat ion: 1. Automated exposure control 2. Adjustment of the mA and/or kV according to patient size 3. Use of iterative reconstruction technique Findings: CT head: There is no apparent intracranial hemorrhage or abnormal extra-axial fluid collection. There is some patchy low attenuation in the cerebral white matter consistent with chronic small vessel isc hemic injury. No other area of abnormal density is seen. The ventricles and basilar cisterns are norm ally positioned. Bone windows show no apparent fracture of the skull or abnormal sinus or mastoid opa cification. CT cervical spine: Alignment is normal. There is no apparent loss of vertebral body height or prevert ebral soft tissue swelling. No fracture line is seen. There is prominent disc narrowing with relative sparing at C2-3. There may be fusion across the C3-4 disc. No destructive process is seen. Evaluatio n of the soft tissue components of the canal is limited without intrathecal contrast. CT lumbar spine: Alignment is normal. There is no apparent loss of vertebral body height or other marifer dence for fracture. There is evidence of prior posterior decompression at L3 and L4. No destructive p rocess is seen. Vacuum changes are shown in the L2-3, L4-5 and L5-S1 discs. Evaluation of the soft ti ssue components of the canal is limited without intrathecal contrast. CT PELVIS: No fracture or dislocation is seen. There is no apparent destructive process. Mild arthrit ic changes are present at the hip. No soft tissue hematoma is seen. IMPRESSION: All studies show no acute abnormality. Electronically signed by: Yinka Wilson Jr., MD (11/26/2021 9:32 PM) [facility]
[2021-11-26 22:11] LABS: BASO # 0.1 x10^3/uL (0.0-0.2); BASO % 1 % (0-3); EOS % 0 % (0-3); HEMATOCRIT 36.7 % (39.0-53.0); LYMPH % 7 % (24-48); MEAN CORPUSCULAR HEMOGLOBIN 28 pg (25-35); MEAN CORPUSCULAR HGB CONC 33 g/dL (31-37); MEAN CORPUSCULAR VOLUME 87 fL (79-100); MONO # 1.8 x10^3/uL (0.0-1.1); MONO % 13 % (0-9); NEUT # 11.4 x10^3uL (1.8-7.7); NEUT % 79 % (31-73); PLATELET COUNT 183 x10^3/uL (140-400); RED BLOOD COUNT 4.23 x10^6/uL (4.30-5.70); RED CELL DISTRIBUTION WIDTH 13.5 % (11.5-14.5); WHITE BLOOD COUNT 14.4 x10^3/uL (4.0-11.0)
[2021-11-26 22:12] LABS: AMPHETAMINE/METHAMPHETAMINE NEG (NEG); BARBITURATES NEG (NEG); BENZODIAZEPINES NEG (NEG); CANNABINOIDS NEG (NEG); COCAINE NEG (NEG); METHADONE NEG (NEG); OPIATES NEG (NEG); PHENCYCLIDINE NEG (NEG)
[2021-11-26 22:18] LABS: INFLUENZA A PATIENT NEGATIVE (NEGATIVE); INFLUENZA B PATIENT NEGATIVE (NEGATIVE)
[2021-11-26 22:22] LABS: BACTERIA,URINE MANY /HPF (0-FEW); CLARITY,URINE CLOUDY; COLOR,URINE AMBER; GLUCOSE,URINE NEG (NEG); NITRITE,URINE POS (NEG); SQUAMOUS EPITHELIAL CELL,UR FEW /LPF; UROBILINOGEN,URINE 0.2 mg/dL (0.2 mg/dL); WBC,URINE TNTC /HPF (0-4)
[2021-11-26] MEDS ORDERED: IPRATRPIUM/ALBUTEROL 0.5/2.5MG 3 ML NEBU. ONE (22:35)
[2021-11-26] MEDS ORDERED: oxyCODONE/APAP 5/325 1 TAB TABLET PO ONE (23:00)
[2021-11-26] MEDS ORDERED: cefTRIAXone IM 1 GM VIAL IM ONE (23:00)
[2021-11-26] MEDS ORDERED: IPRATRPIUM/ALBUTEROL 0.5/2.5MG 3 ML NEBU. NEB ONE (23:30)
[2021-11-26] MEDS ORDERED: CIPROFLOXACIN HCL 500 MG TABLET PO ONE (23:30)
[2021-11-26 23:42] LABS: CALCIUM 8.7 mg/dL (8.5-10.1); CREATININE 1.5 mg/dL (0.7-1.3); POTASSIUM 4.4 mmol/L (3.5-5.1)
[2021-11-26 23:58] LABS: ALBUMIN 3.5 g/dL (3.4-5.0); DIRECT BILIRUBIN 0.2 mg/dL (0.0-0.2); MAGNESIUM 1.4 mg/dL (1.8-2.4); TOTAL BILIRUBIN 0.7 mg/dL (0.2-1.0); TOTAL PROTEIN 6.9 g/dL (6.4-8.2)
--- NOTE | 2021-11-26 23:58 | RAD ---
EXAM: CHEST ONE VIEW. HISTORY: Fall, pain. COMPARISON: None. FINDINGS: A frontal view of the chest is obtained. A left-sided pacemaker has its leads in the right atrium and right ventricle. There are no confluent infiltrates. There is no pneumothorax or pleural effusion. The heart is not en larged. The right distal clavicle has been partially resected. There are atherosclerotic calcificatio ns of the aorta. IMPRESSION: 1. No confluent infiltrates. Electronically signed by: Melissa Deng MD (11/26/2021 11:56 PM) [facility]
[2021-11-27] MEDS ORDERED: ACET325T21 PO (00:13)
[2021-11-27] MEDS ORDERED: DEXT37.56 PO (00:13)
[2021-11-27] MEDS ORDERED: APIX5TAB3 PO (00:13)
[2021-11-27] MEDS ORDERED: ANTI-COAG MONITOR BY PHARMACY. MC PRN (00:15)
[2021-11-27] MEDS ORDERED: ACETAMINOPHEN 325 MG TABLET PO PRN (00:15)
[2021-11-27] MEDS ORDERED: ONDANSETRON PF 4 MG/2 ML VIAL. IVP PRN (00:15)
[2021-11-27] MEDS ORDERED: HYDR-2868 PO (00:15)
[2021-11-27] MEDS ORDERED: NITR0.4T22 SL (00:28)
[2021-11-27] MEDS ORDERED: PREG75CA PO (00:28)
[2021-11-27] MEDS ORDERED: HYDR-2759 PO (00:28)
[2021-11-27] MEDS ORDERED: ASPIRIN CHEWABLE 81 MG TABLET. PO ONE (00:30)
[2021-11-27] MEDS ORDERED: FUROSEMIDE 40 MG/4 ML VIAL IVP ONE (00:30)
[2021-11-27] MEDS ORDERED: METO50TA4 PO (00:33)
[2021-11-27] MEDS ORDERED: SENN1TAB62 PO (00:33)
--- NOTE | 2021-11-27 00:33 | RAD ---
EXAM: 1. RIGHT ANKLE 3 VIEWS. 2. RIGHT FOOT 3 VIEWS. HISTORY: Fall, pain. COMPARISON: None. FINDINGS: There are projectional limitations. No fractures are identified about the ankle. The alignment of the mortise is maintained. Joint spaces are maintained. Atherosclerotic calcifications are noted. No fractures are identified in the foot. Alignment is normal. Joint spaces are maintained. There is a small plantar calcaneal spur. IMPRESSION: 1. Projectional limitations. No fracture. Electronically signed by: Melissa Deng MD (11/27/2021 12:30 AM) [facility]
--- NOTE | 2021-11-27 00:33 | RAD ---
EXAM: 1. RIGHT ANKLE 3 VIEWS. 2. RIGHT FOOT 3 VIEWS. HISTORY: Fall, pain. COMPARISON: None. FINDINGS: There are projectional limitations. No fractures are identified about the ankle. The alignment of the mortise is maintained. Joint spaces are maintained. Atherosclerotic calcifications are noted. No fractures are identified in the foot. Alignment is normal. Joint spaces are maintained. There is a small plantar calcaneal spur. IMPRESSION: 1. Projectional limitations. No fracture. Electronically signed by: Melissa Deng MD (11/27/2021 12:30 AM) [facility]
[2021-11-27] MEDS ORDERED: TRAZ-120 PO (00:35)
[2021-11-27] MEDS ORDERED: BACL10TA PO (00:54)
[2021-11-27] MEDS ORDERED: CHOL500021 PO (00:54)
[2021-11-27] MEDS ORDERED: DIVA250T PO (00:54)
[2021-11-27] MEDS ORDERED: AMLO-186 PO (00:54)
[2021-11-27] MEDS: APIXABAN 5 MG TABLET. PO SCH ×2 (01:39→01:40)
[2021-11-27] MEDS ORDERED: IBUPROFEN 600 MG TABLET. PO ONE (02:30)
--- NOTE | 2021-11-27 04:27 | EKG ---
[address] [address] Test Date: 2021-11-26 Test Time: 21:16:18 Pat Name: ELO SCHROEDER Department: Room: Gender: M [employer] Installer: : 1940 Requested By: MERCY ANDERSON Order Number: [id number] Reading MD: Measurements Intervals [place] Rate: 86 P: -31 FL: 182 QRS: -42 QRSD: 82 T: 18 QT: 348 QTc: 419 Interpretive Statements SINUS RHYTHM ABNORMAL LEFT AXIS DEVIATION R-S TRANSITION ZONE IN V LEADS DISPLACED TO THE LEFT LOW LIMB LEAD VOLTAGE QRS(T) CONTOUR ABNORMALITY CONSISTENT WITH INFERIOR INFARCT PROBABLY OLD ABNORMAL ECG RI6.01 No previous ECG available for comparison
[2021-11-27 04:30] VITALS: BP 112/65
[2021-11-27] MEDS ORDERED: CIPROFLOXACIN HCL 500 MG TABLET PO SCH (09:00)
--- NOTE | 2021-11-28 10:36 | NUR ---
CALLED PT TO GIVE NEGATIVE COVID TEST RESULTS. PHONE NO LONGER IN SERVICE
== END 2021-11-27 04:37 | disposition short-term general hospital (02) ==
LOC: ER 20:44 → UNDOADMIN 11-27 00:11 → ER HOLD 11-27 00:11 → ER 11-27 04:37
DX: S00.83XA Contusion of other part of head, initial encounter (principal); N39.0 Urinary tract infection, site not specified; J18.1 Lobar pneumonia, unspecified organism; D72.829 Elevated white blood cell count, unspecified; D64.9 Anemia, unspecified; R79.1 Abnormal coagulation profile; R77.8 Other specified abnormalities of plasma proteins; I11.0 Hypertensive heart disease with heart failure; I50.9 Heart failure, unspecified; F03.90 Unspecified dementia, unspecified severity, without behavioral disturbance, psychotic disturbance, mood disturbance, and anxiety; M54.59 Other low back pain; M25.571 Pain in right ankle and joints of right foot; I25.10 Atherosclerotic heart disease of native coronary artery without angina pectoris; E11.9 Type 2 diabetes mellitus without complications; E78.00 Pure hypercholesterolemia, unspecified; Z20.822 Contact with and (suspected) exposure to COVID-19; Z87.440 Personal history of urinary (tract) infections; Z86.2 Personal history of diseases of the blood and blood-forming organs and certain disorders involving the immune mechanism; W18.39XA Other fall on same level, initial encounter; Y93.89 Activity, other specified; Y92.89 Other specified places as the place of occurrence of the external cause; Y99.8 Other external cause status
CPT/HCPCS: 36415; 70450; 71045; 72125; 72131; 72192; 73610; 73630; 80048; 80076; 80307; 81001; 82550; 83690; 83735; 83880; 84443; 84484; 85025; 85379; 85610; 85730; 87040; 87077; 87086; 87186; 87428; 93005; 96361; 96372; 96374; 99285; J0696; J1940; J7120; P9612; U0003

== ENCOUNTER 2021-12-13 20:15 | Observation (INO) | payer MEDICARE, OTHER ==
[~2021-12-13] VITALS: Ht 180.3 cm; Wt 105.2 kg
[~2021-12-13 20:15] MED LIST changes: +ACET325T21 PO; +AMLO-186 PO; +APIX5TAB3 PO; +BACL10TA PO; +CHOL500021 PO; +DEXT37.56 PO; +DIVA250T PO; +HYDR-2759 PO; +HYDR-2868 PO; +METO50TA4 PO; +NITR0.4T22 SL; +PREG75CA PO; +SENN1TAB62 PO
[2021-12-13] MEDS ORDERED: NALOXONE 0.4 MG/ML VIAL. ONE (20:36)
[2021-12-13] MEDS ORDERED: NALOXONE 0.4 MG/ML VIAL. IV ONE ×4 (20:45→23:30)
[2021-12-13] MEDS ORDERED: IV RINGERS SOLUTION,LACTATED 1,000 ML IV ONE (21:15)
--- NOTE | 2021-12-13 21:16 | PHYS DOC ---
Past History Past Medical History: Anemia, Anxiety, Arthritis, CAD, CHF, Dementia, Depression, Diabetes, High Cholesterol, Hypertension, UTI, Other Additional Past Medical Histor: idiopathic neuropathy;cataract,imp disorder;muscle weakness;rhinitis;insomn Past Surgical History: Other Alcohol Use: None Drug Use: None Adult General Chief Complaint Chief Complaint: ALTERED MENTAL STATUS HPI HPI Patient is an 81-year-old male with a past medical history of CAD, CHF, hypertension, hyperlipidemia, diabetes, dementia and chronic pain who presents from the skilled nursing for chief complaint of altered mental status. Per staff at the skilled nursing he seemed to become more confused over the course of the day since this morning when he first woke up. jail staff denies any recent illnesses, falls, fevers, nausea, vomiting, diarrhea that they are aware of. Review of Systems Review of Systems Review of systems otherwise unremarkable except noted in HPI Current Medications Current Medications Current Medications Medications (Trade) Dose Ordered Sig/Rosendo Start Time Stop Time Status Last Admin Dose Admin Naloxone HCl (Narcan) 0.4 mg 1X ONCE 12/13/21 21:00 12/13/21 21:01 DC 12/13/21 20:40 0.4 MG Allergies Allergies Allergies Coded Allergies Type Severity Reaction Last Updated Verified No Known Drug Allergies 11/26/21 No Physical Exam Physical Exam Constitutional: Well developed, well nourished, no acute distress, non-toxic appearance. [] HENT: Normocephalic, atraumatic, bilateral external ears normal, oropharynx moist, no oral exudates, nose normal. [] Eyes: PERRLA, EOMI, conjunctiva normal, no discharge. [] Neck: Normal range of motion, no tenderness, supple, no stridor. [] Cardiovascular:Heart rate regular rhythm, no murmur [] Lungs & Thorax: Bilateral breath sounds clear to auscultation [] Abdomen: Bowel sounds normal, soft, no tenderness, no masses, no pulsatile masses. [] Skin: Warm, dry, no erythema, no rash. [] Back: No tenderness, no CVA tenderness. [] Extremities: No tenderness, no cyanosis, no clubbing, ROM intact, no edema. [] Neurologic: Alert and oriented X 3, normal motor function, normal sensory function, no focal deficits noted. [] Psychologic: Affect normal, judgement normal, mood normal. [] Current Patient Data Vital Signs Vital Signs Date Time Temp Pulse Resp B/P (MAP) Pulse Ox O2 Delivery O2 Flow Rate FiO2 12/13/21 20:15 99.5 61 18 137/67 (90) 93 Room Air Lab Results Laboratory Tests Test 12/13/21 20:31 Glucose (Fingerstick) 137 mg/dL (70-99) H EKG EKG [] Radiology/Procedures Radiology/Procedures [] Heart Score C/O Chest Pain: No Risk Factors: Risk Factors: DM, Current or recent (<one month) smoker, HTN, HLP, family history of CAD, obesity. Risk Scores: Risk Factors: DM, Current or recent (<one month) smoker, HTN, HLP, family history of CAD, obesity. Course & Med Decision Making Course & Med Decision Making Patient is 89-year-old male who presents from his skilled nursing for altered mental status Vital signs not concerning. Blood sugar greater than 100. Physical exam noted above. Patient with exquisitely pinpoint pupils bilaterally upon arrival not noted by EMS. Given Narcan which he responded to an approximately 60 to 90 seconds after second 0.04 dose. 3 doses of Narcan given over about an hour or so as patient would respond well then get sleepy. Laboratory analysis notable for hyperkalemia, and SHERRELL. Started on IV fluid resuscitation. Given calcium gluconate, insulin and dextrose. Urinalysis with some bacteria and trace leukoesterase. Covered for UTI. CT head not concerning. CTA of the head and neck with high-grade stenosis of the right carotid bulb and possible approximately 1 cm dissection flap in the right vertebral artery. Discussed patient with [facility] who felt it would be gaitan to talk to to see if patient qualifies for any intervention. Discussed patient with neurology and neurosurgery who felt this patient was not a candidate for any type of intervention and given his age that the most appropriate treatment would be a floor bed. Stated that an MRI would not be unreasonable, however it did not really matter what they found there would not be an intervention indication for this patient based on his imaging. Stated that he should probably be on some type of anticoagulation and since he was on Eliquis this will be adequate. Given patient's history of dementia and other multiple comorbidities was admitted to [facility] for management of hyperkalemia and SHERRELL. [] Dragon Disclaimer Dragon Disclaimer This electronic medical record was generated, in whole or in part, using a voice recognition dictation system. Departure Departure: Impression: Primary Impression: Altered mental status Additional Impressions: Opioid overdose SHERRELL (acute kidney injury) Hyperkalemia Dissection, vertebral artery Disposition: ADMITTED INPATIENT Admitting Physician: Robert Stewart Condition: STABLE Referrals: RONALD JOSÉ MD (PCP) Problem Qualifiers SALIMA FREDERICK MD Dec 13, 2021 21:16
[2021-12-13 21:43] LABS: CALCIUM 8.7 mg/dL (8.5-10.1); CREATININE 2.8 mg/dL (0.7-1.3); GFR 21.9; POTASSIUM 5.9 mmol/L (3.5-5.1)
--- NOTE | 2021-12-13 21:43 | EKG ---
[address] [address] Test Date: 2021-12-13 Test Time: 21:34:25 Pat Name: ELO SCHROEDER Department: Room: Gender: M Field Project Manager: KEANU : 1940 Requested By: SALIMA FREDERICK Order Number: [id number] Reading MD: Ramin Myers Measurements Intervals [place] Rate: 60 P: 0 AK: 260 QRS: -33 QRSD: 84 T: 47 QT: 406 QTc: 410 Interpretive Statements SINUS RHYTHM PROLONGED AK INTERVAL ABNORMAL LEFT AXIS DEVIATION LOW LIMB LEAD VOLTAGE QRS(T) CONTOUR ABNORMALITY CONSISTENT WITH INFERIOR INFARCT PROBABLY OLD Electronically Signed On 12-17-2021 21:41:02 CDT by Ramin Myers
[2021-12-13 21:44] LABS: BASO % 1 % (0-3); EOS % 1 % (0-3); HEMATOCRIT 35.9 % (39.0-53.0); HEMOGLOBIN 11.6 g/dL (13.0-17.5); LYMPH # 1.1 x10^3/uL (1.0-4.8); LYMPH % 14 % (24-48); MEAN CORPUSCULAR HEMOGLOBIN 28 pg (25-35); MEAN CORPUSCULAR HGB CONC 32 g/dL (31-37); MEAN CORPUSCULAR VOLUME 87 fL (79-100); MONO # 1.1 x10^3/uL (0.0-1.1); MONO % 14 % (0-9); NEUT # 5.6 x10^3uL (1.8-7.7); NEUT % 71 % (31-73); PLATELET COUNT 267 x10^3/uL (140-400); RED BLOOD COUNT 4.12 x10^6/uL (4.30-5.70); RED CELL DISTRIBUTION WIDTH 14.2 % (11.5-14.5); WHITE BLOOD COUNT 7.9 x10^3/uL (4.0-11.0)
[2021-12-13 21:48] LABS: ACETAMIN < 2.0 mcg/mL (10-30); SALIC < 2.8 mg/dL (2.8-20.0)
[2021-12-13 21:53] LABS: ALBUMIN 3.6 g/dL (3.4-5.0); MAGNESIUM 2.1 mg/dL (1.8-2.4); TOTAL BILIRUBIN 0.4 mg/dL (0.2-1.0); TOTAL PROTEIN 7.1 g/dL (6.4-8.2)
--- NOTE | 2021-12-13 21:55 | RAD ---
XR CHEST 1V 12/13/2021 9:24 PM INDICATION: Altered mental status, congestion COMPARISON: 11/26/2021 TECHNIQUE: Portable frontal view of the chest is provided. FINDINGS: The cardiomediastinal silhouette is within normal limits. Lungs are clear. Left chest wall cardiac de vice is in similar position of leads projecting over the right atrium and right ventricle. There are no significant pleural effusions. There is no pulmonary vascular congestion. No pneumothora x. No suspicious osseous abnormality. IMPRESSION: There is no acute cardiopulmonary process. Electronically signed by: Jessica Mulligan MD (12/13/2021 9:53 PM) [facility]
[2021-12-13 22:24] LABS: BARBITURATES NEG (NEG); BENZODIAZEPINES NEG (NEG); CANNABINOIDS NEG (NEG); COCAINE NEG (NEG); METHADONE NEG (NEG); OPIATES NEG (NEG); PHENCYCLIDINE NEG (NEG)
[2021-12-13 22:25] LABS: AMPHETAMINE/METHAMPHETAMINE NEG (NEG); BACTERIA,URINE MANY /HPF (0-FEW); CLARITY,URINE CLOUDY; COLOR,URINE AMBER; GLUCOSE,URINE NEG (NEG); NITRITE,URINE NEG (NEG); RBC,URINE 0 /HPF (0-2); SQUAMOUS EPITHELIAL CELL,UR FEW /LPF; UROBILINOGEN,URINE 0.2 mg/dL (0.2 mg/dL)
[2021-12-13 22:26] LABS: HYALINE CASTS, URINE MOD /HPF
[2021-12-13] MEDS ORDERED: INSULIN REGULAR 100 UNIT/ML 3ML VIAL. IV ONE (22:30)
[2021-12-13] MEDS ORDERED: CALCIUM GLUCONATE 1,000 MG/10 ML VIAL IV ONE (22:30)
[2021-12-13] MEDS ORDERED: DEXTROSE 50% 25 GM / 50ML DISP.SYRIN. IV ONE (22:30)
[2021-12-13] MEDS ORDERED: FUROSEMIDE 40 MG/4 ML VIAL IVP ONE (23:00)
[2021-12-13] MEDS ORDERED: CONTRAST GIVEN. MC PRN (23:30)
[2021-12-13] MEDS ORDERED: IOHEXOL 350 MG/ML 100 ML VIAL. IV ONE (23:45)
--- NOTE | 2021-12-13 23:59 | RAD ---
EXAMINATION: CT STROKE HEAD W/O CLINICAL HISTORY: Stroke, AMS, confusion, lethargic TECHNIQUE: Serial axial images without IV contrast were obtained from the vertex to the foramen magnu m. CT Dose Reduction Employed: One or more of the following individualized dose reduction techniques wer e utilized for this examination: 1. Automated exposure control 2. Adjustment of the mA and/or kV ac cording to patient size 3. Use of iterative reconstruction technique. COMPARISON: 11/26/2021 FINDINGS: Acute Change: No evidence of an acute infarct or other acute parenchymal process. Hemorrhage: No evidence of acute intracranial hemorrhage. Mass Lesion/Mass Effect: No evidence of intracranial mass or extraaxial fluid collection. No signific ant mass effect. Chronic Change: Left subinsular small old lacunar infarct. Patchy hypoattenuation in the supratentori al white matter, nonspecific but likely represents moderate microvascular ischemia. Atherosclerotic c alcification of the anterior and posterior circulation. Parenchyma: Moderate generalized volume loss. Ventricles: Ventricular enlargement concordant with degree of parenchymal volume loss. Paranasal Sinuses and Skull Base: Mild ethmoid secretions. Visualized skull base and soft tissues unr emarkable. IMPRESSION: No evidence of acute intracranial abnormality. Findings discussed with SALIMA FREDERICK MD at 12/13/2021 11:54 PM. Electronically signed by: Alireza Crum DO (12/13/2021 11:56 PM) [facility]
[2021-12-14] MEDS ORDERED: IV RINGERS SOLUTION,LACTATED 1,000 ML IV ONE (00:15)
[2021-12-14] MEDS ORDERED: cefTRIAXone SODIUM 1 GM VIAL ONE (00:25)
[2021-12-14] MEDS ORDERED: IV NORMAL SALINE 50ML 50 ML ONE (00:25)
--- NOTE | 2021-12-14 00:26 | RAD ---
EXAMINATION: CTA HEAD AND NECK W/WO CONTRAST CLINICAL HISTORY: Stroke, AMS, confusion, lethargic. TECHNIQUE: Spiral high resolution axial images were obtained through the head, neck and superior medi astinum following bolus administration of intravenous contrast for CT angiography. 3D maximum intensi ty projection images also performed. CT Dose Reduction Employed: One or more of the following individualized dose reduction techniques wer e utilized for this examination: 1. Automated exposure control 2. Adjustment of the mA and/or kV ac cording to patient size 3. Use of iterative reconstruction technique. COMPARISON: CT head same day FINDINGS: BRAIN: No evidence of acute ischemic stroke or intracranial hemorrhage. NECK: Soft Tissues: No acute abnormality. Spine: Multilevel cervicothoracic degenerative changes. Lung Apices: Motion degraded images are unremarkable. CT ARTERIOGRAM: Extracranial Circulation: Aortic Arch: Normal branching pattern from the aortic arch. No significant stenosis in the proximal b rachiocephalic vessels. Carotid Stenosis: Right Common: No significant stenosis. Right Internal Carotid Plaque: Marked calcified plaque in the carotid bulb. Right Internal Carotid Stenosis (% by NASCET Criteria): High-grade stenosis in the carotid bulb. Left Common: No significant stenosis. Left Internal Carotid Plaque: Minimal calcified plaque in the carotid bulb. Left Internal Carotid Stenosis (% by NASCET Criteria): No significant stenosis. Cervical Vertebral Arteries: Patency: Bilateral Dominance: Left Other: Suspected tiny dissection flap in the right vertebral artery at the level of C2-3. Intracranial Circulation: Anterior Circulation: No evidence of large vessel occlusion. Mild calcified plaque in the intracrania l portion of bilateral internal carotid arteries. Vertebrobasilar Circulation: No evidence of large vessel occlusion. IMPRESSION: No evidence of large vessel occlusion. Suspected tiny dissection flap in the right vertebral artery at the level of C2-3. High-grade stenosis in the right carotid bulb. Findings discussed with SALIMA FREDERICK MD at 12/14/2021 12:15 AM. Electronically signed by: Alireza Crum DO (12/14/2021 12:24 AM) [facility]
[2021-12-14 01:28] LABS: CALCIUM 8.9 mg/dL (8.5-10.1); CREATININE 2.3 mg/dL (0.7-1.3); GFR 27.4; POTASSIUM 5.4 mmol/L (3.5-5.1)
--- NOTE | 2021-12-14 02:00 | NUR ---
ADMISSION: The patient, LEO SCHROEDER, 81 y/o, M admitted by DAVID CEBALLOS MD, was given written information regarding hospital policies, unit procedures and contact persons. Pt arrived to room [facility], accompanied by [facility] and ED staff. Pt transferred from rney to bed x4 assist. Pt is normally WC bound. Pt here for AMS, SHERRELL, and hyperkalemia. Pt has dementia. Currently quite sleepy, only A/O to self. Pt has LR infusing at 100ml/hr per order. PMH and home meds obtained from [place] records. Unable to orient pt to unit or routines. Bed in lowest position with alarm set for safety. Call light in reach. Valuables were checked and logged. Left in room with pt.
[2021-12-14 02:20] VITALS: BP 138/71
[2021-12-14] MEDS ORDERED: DIVA125T28 PO (03:59)
[2021-12-14] MEDS ORDERED: MECL12.582 PO (03:59)
[2021-12-14] MEDS ORDERED: hydrALAZINE 25 MG TABLET PO PRN (04:00)
[2021-12-14] MEDS ORDERED: DEXTROSE ORAL GEL 15 GM TUBE. PO PRN (04:00)
[2021-12-14] MEDS ORDERED: MECLIZINE 12.5 MG TABLET. PO PRN (04:00)
[2021-12-14] MEDS ORDERED: NITROGLYCERIN SUBLINGUAL 0.4 MG BOTTLE OF 25. SL PRN (04:00)
[2021-12-14] MEDS ORDERED: ACETAMINOPHEN 325 MG TABLET PO PRN (04:00)
[2021-12-14] MEDS ORDERED: ANTI-COAG MONITOR BY PHARMACY. MC PRN (04:45)
[2021-12-14] MEDS ORDERED: GLUCAGON,HUMAN RECOMBINANT 1 MG KIT. IM PRN (04:45)
[2021-12-14 06:12] VITALS: BP 146/80
[2021-12-14] MEDS: INSULIN LISPRO 300 UNITS/3 ML VIAL. SQ SCH ×6 (08:00→17:00)
[2021-12-14] MEDS: CETIRIZINE HCL 10 MG TABLET PO SCH ×2 (08:23→09:00)
[2021-12-14] MEDS: DULoxetine HCL 30 MG CAPSULE.DR PO SCH ×2 (08:23→09:00)
[2021-12-14] MEDS: APIXABAN 5 MG TABLET. PO SCH ×3 (08:24→20:12)
[2021-12-14] MEDS: BACLOFEN 10 MG TABLET PO SCH ×3 (08:24→20:15)
[2021-12-14] MEDS: amLODIPine BESYLATE 5 MG TABLET PO SCH ×3 (08:24→20:15)
[2021-12-14] MEDS: SENNOSIDES/DOCUSATE 8.6/50MG TABLET. PO SCH ×2 (08:24→09:00)
[2021-12-14] MEDS: PREGABALIN 75 MG CAPSULE PO SCH ×3 (08:24→20:14)
[2021-12-14] MEDS: MULTIVITAMIN with MINERAL TABLET. PO SCH ×2 (08:25→09:00)
[2021-12-14] MEDS: DIVALPROEX SODIUM 125 MG TABLET.DR. PO SCH ×3 (08:25→20:28)
[2021-12-14] MEDS: MEMANTINE 10 MG TABLET. PO SCH ×2 (08:25→09:00)
[2021-12-14] MEDS: CYANOCOBALAMIN (VITAMIN B-12) 1,000 MCG TABLET. PO SCH ×2 (08:25→09:00)
[2021-12-14] MEDS: METOPROLOL SUCC 24HR ER 50 MG TAB.ER.24H. PO SCH ×2 (08:26→09:00)
[2021-12-14] MEDS: POLYETHYLENE GLYCOL 3350 17 GM PACKET. PO SCH ×2 (08:26→09:00)
[2021-12-14] MEDS: PROPAFENONE 150 MG TABLET. PO SCH ×3 (08:27→20:13)
[2021-12-14] MEDS: CHOLECALCIFEROL (VITAMIN D3) 50,000 UNIT CAPSULE PO SCH ×2 (08:28→09:00)
[2021-12-14 11:04] VITALS: BP 143/75
[2021-12-14 15:30] VITALS: BP 131/68
[2021-12-14] MEDS: HYDROcodone/APAP 5/325MG 1 TAB TABLET PO PRN (17:58)
--- NOTE | 2021-12-14 18:14 | NUR ---
ASSUMED CARE OF PT AT 0700. PT IS VERY LETHARGIC DURING MORNING MEDICATION PASS AND INTO AFTERNOON. PT IS SO LETHARGIC HE IS UNABLE TO TAKE PILL AND EAT DUE TO DROWSYNESS. PT DID WAKE UP AFTER LUCH AND ATE PART OF LUNCH. CONDOM CATH APPLIED THIS AFTERNOON DUE TO PATIENTS MACERATED GROIN. PRN HYDROCODONE GIVEN TO PT THSI EVENING FOR R ANKLE PAIN. PT IS RESTING IN BED AT THSI TIME. WILL CONTINUE TO MONITOR.
[2021-12-14 19:21] VITALS: BP 128/59
[2021-12-14] MEDS ORDERED: traZODone 50 MG TABLET. PO SCH (21:00)
[2021-12-14] MEDS ORDERED: LORazepam 0.5 MG TABLET PO SCH (21:00)
[2021-12-14] MEDS ORDERED: DONEPEZIL HCL 10 MG TABLET PO SCH (21:00)
[2021-12-14] MEDS ORDERED: INSULIN GLARGINE SYRINGE. SQ SCH (21:00)
[2021-12-14] MEDS ORDERED: NORTRIPTYLINE 25 MG CAPSULE PO SCH (21:00)
--- NOTE | 2021-12-14 21:59 | NUR ---
Pt is more awake this evening, interactive with staff. Pt able to verbalize needs. Took HS pills whole without difficulty. Interventions and social media manager charted by SN Carmelo were under the direct supervision of this RN.
[2021-12-14 23:03] VITALS: BP 113/64
[2021-12-15] MEDS: HYDROcodone/APAP 5/325MG 1 TAB TABLET PO PRN (01:50)
--- NOTE | 2021-12-15 02:02 | NUR ---
Pt awoke confused and agitated. Pt pulled out both PIV's and threw them across the room. Pulled of telemetry. Removed condom catheter and kicked it to the end of his bed. Linens soiled in blood and urine. Pt initially stated, "it wasn't me, it was the gypsy and she's gone now." Pt able to be reoriented to hospital and situation. Pt was cooperative during brief and linen change. Pt later admitted it was him who pulled off lines. Pt reporting pain to right ankle has returned. PRN Lortab given. Will attempt to regain IV access once pt has calmed.
[2021-12-15 05:40] VITALS: BP 116/66
[2021-12-15 06:15] LABS: BASO % 1 % (0-3); EOS # 0.2 x10^3/uL (0.0-0.7); EOS % 4 % (0-3); HEMATOCRIT 30.6 % (39.0-53.0); LYMPH # 1.3 x10^3/uL (1.0-4.8); LYMPH % 32 % (24-48); MEAN CORPUSCULAR HEMOGLOBIN 28 pg (25-35); MEAN CORPUSCULAR HGB CONC 33 g/dL (31-37); MEAN CORPUSCULAR VOLUME 87 fL (79-100); MONO # 0.6 x10^3/uL (0.0-1.1); MONO % 15 % (0-9); NEUT # 2.1 x10^3uL (1.8-7.7); NEUT % 49 % (31-73); PLATELET COUNT 219 x10^3/uL (140-400); RED BLOOD COUNT 3.54 x10^6/uL (4.30-5.70); WHITE BLOOD COUNT 4.2 x10^3/uL (4.0-11.0)
[2021-12-15 06:32] LABS: CALCIUM 8.1 mg/dL (8.5-10.1); CREATININE 1.1 mg/dL (0.7-1.3); GFR 64.2; POTASSIUM 4.4 mmol/L (3.5-5.1)
[2021-12-15] MEDS ORDERED: metFORMIN 500 MG TABLET PO SCH (08:00)
[2021-12-15] MEDS: INSULIN LISPRO 300 UNITS/3 ML VIAL. SQ SCH ×2 (08:00→08:28)
[2021-12-15] MEDS: SENNOSIDES/DOCUSATE 8.6/50MG TABLET. PO SCH (08:29)
[2021-12-15] MEDS: DULoxetine HCL 30 MG CAPSULE.DR PO SCH (08:29)
[2021-12-15] MEDS: APIXABAN 5 MG TABLET. PO SCH (08:29)
[2021-12-15] MEDS: BACLOFEN 10 MG TABLET PO SCH (08:30)
[2021-12-15] MEDS: MULTIVITAMIN with MINERAL TABLET. PO SCH (08:30)
[2021-12-15] MEDS: METOPROLOL SUCC 24HR ER 50 MG TAB.ER.24H. PO SCH (08:30)
[2021-12-15] MEDS: MEMANTINE 10 MG TABLET. PO SCH (08:31)
[2021-12-15] MEDS: PREGABALIN 75 MG CAPSULE PO SCH (08:31)
[2021-12-15] MEDS: amLODIPine BESYLATE 5 MG TABLET PO SCH (08:31)
[2021-12-15] MEDS: CETIRIZINE HCL 10 MG TABLET PO SCH (08:31)
[2021-12-15] MEDS: CYANOCOBALAMIN (VITAMIN B-12) 1,000 MCG TABLET. PO SCH (08:31)
[2021-12-15] MEDS: POLYETHYLENE GLYCOL 3350 17 GM PACKET. PO SCH (08:32)
[2021-12-15] MEDS: DIVALPROEX SODIUM 125 MG TABLET.DR. PO SCH (08:32)
[2021-12-15] MEDS: PROPAFENONE 150 MG TABLET. PO SCH (08:33)
[2021-12-15 11:30] VITALS: BP 137/66
--- NOTE | 2021-12-15 11:42 | HP ---
DATE OF SERVICE: 12/14/2021 ADMIT DATE: 12/14/2021 ATTENDING PHYSICIAN: Dr. Saleh. CHIEF COMPLAINT: Altered mentation. HISTORY OF PRESENT ILLNESS: The patient is an 81-year-old gentleman, who has been a resident at the [facility]. He has underlying dementia. He is admitted with altered mentation. He is obtunded. He has taken too many other narcotics. Narcan was administered. He was admitted for further treatment and evaluation. He is arousable today, but I reviewed his medication. He is on quite a bit. PAST MEDICAL HISTORY: Gleaned from the chart. He has type 2 diabetes, major depression, idiopathic neuropathy, hypertensive heart disease, anemia of chronic disease, unspecified dementia without any behavioral disturbances, generalized anxiety, hyperlipidemia, vitamin D deficiency, chronic urinary tract infection, impulse control disorder, age-related cataract and essential hypertension. CURRENT MEDICATIONS: Reviewed from the half-way. He was on scheduled Cymbalta, lorazepam, metoprolol, nortriptyline, propafenone, trazodone, vitamin B12, Depakote, Aricept, meclizine, Namenda, metformin, metoprolol, nortriptyline, Lyrica, propafenone, trazodone, and vitamin D. He is also on p.r.n. hydrocodone. FAMILY HISTORY: Unobtainable. REVIEW OF SYSTEMS: Unobtainable. PHYSICAL EXAMINATION: GENERAL: When I saw him, this is a pleasant gentleman, who is arousable, but very sleepy. He is nonambulatory at this time. VITAL SIGNS: Initial vital signs showed a blood pressure 146/80 mmHg, pulse is 60 and regular. He was afebrile, oxygen saturation 92% on room air. HEENT: Head is without trauma. Pupils are reactive. Sclerae nonicteric. Oropharynx clear. NECK: Supple. LUNGS: Shallow respirations. CARDIOVASCULAR: Showed regular heart tones. ABDOMEN: Soft. No guarding. EXTREMITIES: Without edema. NEUROLOGIC: He is asleep. PERTINENT LABORATORY STUDIES: Hemoglobin on admission was 11.6 g/dL with a white count of 7900. Electrolytes within normal range. Creatinine is 2.3 mg/dL. I do not know his baseline. Toxicology screen positive for opiates. Urine unremarkable. The obligatory CT of the head showed no acute bleeds or strokes. There is reported suspected tiny dissection flap in the right vertebral artery at the level of C2 and C3, high-grade stenosis in the right carotid bulb. ASSESSMENT: An 81-year-old gentleman with: 1. Altered mentation due to polypharmacy. 2. Narcotic, excess, treated. 3. Polypharmacy. 4. Dementia. 5. Incidental finding of a small carotid dissection flap. 6. Chronic kidney disease. I do not know his baseline. PLAN: 1. Admit to the inpatient unit. 2. Gentle IV hydration. 3. Serial chemistries. 4. Medication simplified. 5. Diet as tolerated. 6. I will discuss with the family his code status. HAI DR: Lanette TID: [id number]
--- NOTE | 2021-12-15 13:05 | NUR ---
PATIENT IS DISCHARGED BACK TO [facility]. REPORT GIVEN TO STAFF NURSE. PATIENT LEFT UNIT VIA W/C . PATIENT TAKEN BACK TO REHAB VIA TRANSPORT PROVIDED BY FACILITY.
--- NOTE | 2021-12-15 18:37 | DS ---
DATE OF DISCHARGE: 12/15/2021 ATTENDING PHYSICIAN: Dr. Saleh FINAL DISCHARGE DIAGNOSES: 1. Altered mentation due to medication, resolved. 2. Opioid excess. 3. Underlying depression with behavioral issues. 4. Dementia. 5. Impulse control disorder. 6. Essential hypertension. 7. History of cardiac arrhythmias. Details are sketchy. HISTORY AND PHYSICAL: The patient is an 81-year-old gentleman at a local group home. He was admitted through the ED with altered mentation. I reviewed his medications. He had quite a bit of psychiatric meds, which are sedating. These were held along with his narcotic and his Ativan. PHYSICAL EXAMINATION: Please see my dictated note. PERTINENT LABORATORY AND X-RAY STUDIES: The obligatory CT of the head showed no evidence of acute intracranial abnormalities. There is moderate generalized volume loss due to his age. Carotid study showed a very small flap suggested a possible aortic dissection. This is chronic in nature. He is on anticoagulation for now. His lab work on admission, hemoglobin was 11.6 g/dL with a white count of 7900. Electrolytes within normal range. Creatinine 1.1 mg/dL, potassium 4.4 mEq, nonfasting blood sugar low 100s. COURSE IN HOSPITAL: The patient was admitted to the medical floor. He was kept on the monitor. We held all of the sedating meds. He did well. We later restarted his cardiac meds and his Eliquis. Diet was advanced. He was pleasantly confused, but he was not agitated and he was back to baseline. By the third hospital day, on the , I examined him, his lungs were clear. Cardiovascular exam showed regular heart tones. He was afebrile and he had adequate oxygen saturations on room air. He was eating well and he was comfortable. Therefore, he was ready for discharge back to [facility]. Prior to discharge, his blood pressure was stable at 116/66. He is afebrile and oxygen saturations were 93% on room air. Regarding his meds, we recommended that he continue his Cymbalta 90 mg daily, Toprol-XL 50 mg daily, propafenone 75 mg b.i.d., Eliquis 5 mg b.i.d., Depakote 125 mg p.o. b.i.d., insulin regular and Lantus as scheduled, MiraLax 17 g daily, metformin 1000 mg b.i.d. For now, we took the liberty of holding his trazodone, hydralazine, senna, Lyrica, meclizine, Namenda, multivitamin, nortriptyline, hydrocodone, lorazepam, B12, Aricept, baclofen and Zyrtec doses. These can be restarted as needed. His prognosis is fair. The patient was then discharged from our hospital in stable condition with explicit drug and followup care. Total discharge time is [address]: Lanette TID: [id number]
== END 2021-12-15 13:05 ==
LOC: ER 20:15 → 1 SOUTH 12-14 01:27 → INTOOBSV 12-14 01:27
PROVIDERS: ADMIT Internal Medicine; ATTEND Internal Medicine
DX: R41.82 Altered mental status, unspecified (principal); Z20.822 Contact with and (suspected) exposure to COVID-19; T40.2X1A Poisoning by other opioids, accidental (unintentional), initial encounter; N17.9 Acute kidney failure, unspecified; E87.5 Hyperkalemia; I13.0 Hypertensive heart and chronic kidney disease with heart failure and stage 1 through stage 4 chronic kidney disease, or unspecified chronic kidney disease; I50.9 Heart failure, unspecified; E11.22 Type 2 diabetes mellitus with diabetic chronic kidney disease; N18.9 Chronic kidney disease, unspecified; D63.1 Anemia in chronic kidney disease; F03.91 Unspecified dementia, unspecified severity, with behavioral disturbance; I77.71 Dissection of carotid artery; I25.10 Atherosclerotic heart disease of native coronary artery without angina pectoris; I49.9 Cardiac arrhythmia, unspecified; E78.00 Pure hypercholesterolemia, unspecified; E78.5 Hyperlipidemia, unspecified; F32.A Depression, unspecified; F63.9 Impulse disorder, unspecified; Z79.899 Other long term (current) drug therapy; Z76.5 Malingerer [conscious simulation]; Z98.890 Other specified postprocedural states; Z98.49 Cataract extraction status, unspecified eye
CPT/HCPCS: 36415; 70450; 70496; 70498; 71045; 80048; 80053; 80307; 80329; 81001; 82947; 83690; 83735; 84484; 85025; 87086; 93005; 96365; 96375; 96376; 99285; G0378; J0610; J0696; J1815; J1940; J2310; J7120; P9612; Q9967; U0003; 96361; G0379; G0480